=== PATIENT | male | born 1975 | race Caucasian/White ===

== ENCOUNTER 2018-06-05 08:36 | Outpatient (CLI) | payer BC, SELFPAY ==
[2018-06-05 09:05] LABS: Abs Immature Grans 0.01 k/cumm (0.0-0.09); Absolute Basophil Count 0.02 k/cumm (0.0-0.2); Absolute Eosinophil Count 0.29 k/cumm (0.0-0.7); Absolute Lymphocyte Count 1.02 k/cumm (1.2-3.4); Absolute Neutrophil Count 3.18 k/cumm (1.2-6.7); Basophils % 0.4; Eosinophils % 5.8; HCT 44.8 % (40.0-50.0); HGB 15.2 g/dL (13.5-17.5); Immature Grans % 0.2; Lymphocytes % 20.3; Mean Corp. HGB Concentration 33.9 g/dL (32.0-36.0); Mean Corpuscular Hemoglobin 31.6 pg (27.0-33.0); Mean Corpuscular Volume 93.1 fL (80-95); Mean Platelet Volume 11.3 fL (8.0-11.0); Neutrophils % 63.3; Platelet Count 177 x1000/uL (130-400); RBC 4.81 m/cumm (4.50-6.00); RBC Distribution Width 15.1 % (11.8-14.1); White Blood Cell Count 5.02 k/cumm (4.4-10.8)
== END 2018-06-05 08:56 ==
PROVIDERS: PCP Family Medicine; Visit Provider Internal Medicine Gastroenterology
DX: K50.90 Crohn's disease, unspecified, without complications (principal)
CPT/HCPCS: 36415; 85025

== ENCOUNTER 2018-08-09 12:38 | Outpatient (CLI) | payer BC, SELFPAY ==
[2018-08-09 13:17] LABS: Abs Immature Grans 0.02 k/cumm (0.0-0.09); Absolute Basophil Count 0.01 k/cumm (0.0-0.2); Absolute Eosinophil Count 0.23 k/cumm (0.0-0.7); Absolute Lymphocyte Count 1.26 k/cumm (1.2-3.4); Absolute Monocyte Count 0.56 k/cumm (0.11-0.7); Absolute Neutrophil Count 4.34 k/cumm (1.2-6.7); Basophils % 0.2; Eosinophils % 3.6; HCT 45.8 % (40.0-50.0); HGB 15.8 g/dL (13.5-17.5); Immature Grans % 0.3; Lymphocytes % 19.6; Mean Corp. HGB Concentration 34.5 g/dL (32.0-36.0); Mean Corpuscular Hemoglobin 31.7 pg (27.0-33.0); Mean Corpuscular Volume 91.8 fL (80-95); Mean Platelet Volume 11.1 fL (8.0-11.0); Monocytes % 8.7; Neutrophils % 67.6; Platelet Count 175 x1000/uL (130-400); RBC 4.99 m/cumm (4.50-6.00); RBC Distribution Width 14.2 % (11.8-14.1); White Blood Cell Count 6.42 k/cumm (4.4-10.8)
== END 2018-08-09 12:58 ==
PROVIDERS: PCP Family Medicine; Visit Provider Internal Medicine Gastroenterology
DX: K50.90 Crohn's disease, unspecified, without complications (principal)
CPT/HCPCS: 36415; 85025

== ENCOUNTER 2018-09-24 08:23 | Outpatient (CLI) | payer BC, SELFPAY ==
[2018-09-24 08:53] LABS: Abs Immature Grans 0.02 k/cumm (0.0-0.09); HCT 46.1 % (40.0-50.0); Mean Corp. HGB Concentration 34.7 g/dL (32.0-36.0); Mean Corpuscular Hemoglobin 31.4 pg (27.0-33.0); Mean Corpuscular Volume 90.6 fL (80-95); Mean Platelet Volume 11.1 fL (8.0-11.0); Platelet Count 164 x1000/uL (130-400); RBC 5.09 m/cumm (4.50-6.00); RBC Distribution Width 14.1 % (11.8-14.1); White Blood Cell Count 7.27 k/cumm (4.4-10.8)
[2018-09-24 09:18] LABS: Absolute Basophil Count 0.07 k/cumm (0.0-0.2); Absolute Eosinophil Count 0.15 k/cumm (0.0-0.7); Absolute Lymphocyte Count 0.87 k/cumm (1.2-3.4); Absolute Monocyte Count 0.65 k/cumm (0.11-0.7); Absolute Neutrophil Count 5.53 k/cumm (1.2-6.7); Atypical Lymphocytes % 3; Diff Comment Manual Differential
[2018-09-24 09:19] LABS: RBC Morphology Normal
== END 2018-09-24 08:43 ==
PROVIDERS: PCP Family Medicine; Visit Provider Internal Medicine Gastroenterology
DX: K50.90 Crohn's disease, unspecified, without complications (principal)
CPT/HCPCS: 36415; 85025

== ENCOUNTER 2018-09-24 11:54 | Outpatient (REF) | payer BC, SELFPAY ==
[2018-09-25 12:21] LABS: Campylobacter PCR SEE COMMENTS; Salmonella PCR SEE COMMENTS; Shiga Toxin PCR SEE COMMENTS; Shigella/Enteroinvasive Ecoli SEE COMMENTS
== END 2018-09-24 12:14 ==
LOC: LBN 11:54
PROVIDERS: PCP Family Medicine; Visit Provider Family Medicine
DX: A06.0 Acute amebic dysentery (principal); K50.913 Crohn's disease, unspecified, with fistula
CPT/HCPCS: 87505; 83630; 87324

== ENCOUNTER 2018-10-18 07:11 | Outpatient (REF) | payer BC, SELFPAY | END 2018-10-18 07:31 | LOC: LBN 07:11 | PROVIDERS: PCP Family Medicine; Visit Provider Internal Medicine Gastroenterology | DX: A06.0 Acute amebic dysentery (principal); K50.90 Crohn's disease, unspecified, without complications | CPT/HCPCS: 83630; 87324 ==

== ENCOUNTER 2018-10-30 15:25 | Outpatient (CLI) | payer BC, SELFPAY ==
[2018-10-30 16:07] LABS: Abs Immature Grans 0.02 k/cumm (0.0-0.09); Absolute Basophil Count 0.01 k/cumm (0.0-0.2); Absolute Eosinophil Count 0.23 k/cumm (0.0-0.7); Absolute Lymphocyte Count 1.61 k/cumm (1.2-3.4); Absolute Monocyte Count 0.65 k/cumm (0.11-0.7); Absolute Neutrophil Count 4.11 k/cumm (1.2-6.7); Basophils % 0.2; Eosinophils % 3.5; HCT 44.5 % (40.0-50.0); HGB 15.2 g/dL (13.5-17.5); Immature Grans % 0.3; Lymphocytes % 24.3; Mean Corp. HGB Concentration 34.2 g/dL (32.0-36.0); Mean Corpuscular Hemoglobin 31.3 pg (27.0-33.0); Mean Corpuscular Volume 91.8 fL (80-95); Mean Platelet Volume 11.4 fL (8.0-11.0); Monocytes % 9.8; Neutrophils % 61.9; Platelet Count 180 x1000/uL (130-400); RBC 4.85 m/cumm (4.50-6.00); RBC Distribution Width 14.1 % (11.8-14.1); White Blood Cell Count 6.63 k/cumm (4.4-10.8)
== END 2018-10-30 15:45 ==
PROVIDERS: PCP Family Medicine; Visit Provider Internal Medicine Gastroenterology
DX: K50.90 Crohn's disease, unspecified, without complications (principal)
CPT/HCPCS: 36415; 85025

== ENCOUNTER 2018-12-03 09:42 | Outpatient (CLI) | payer BC, SELFPAY ==
[2018-12-03 10:14] LABS: Abs Immature Grans 0.02 k/cumm (0.0-0.09); Absolute Basophil Count 0.01 k/cumm (0.0-0.2); Absolute Lymphocyte Count 1.09 k/cumm (1.2-3.4); Absolute Neutrophil Count 2.97 k/cumm (1.2-6.7); Basophils % 0.2; Eosinophils % 7.9; HCT 44.7 % (40.0-50.0); HGB 15.5 g/dL (13.5-17.5); Immature Grans % 0.4; Lymphocytes % 21.4; Mean Corp. HGB Concentration 34.7 g/dL (32.0-36.0); Mean Corpuscular Hemoglobin 31.6 pg (27.0-33.0); Mean Platelet Volume 11.3 fL (8.0-11.0); Monocytes % 11.8; Neutrophils % 58.3; Platelet Count 169 x1000/uL (130-400); RBC 4.91 m/cumm (4.50-6.00); RBC Distribution Width 14.3 % (11.8-14.1); White Blood Cell Count 5.09 k/cumm (4.4-10.8)
== END 2018-12-03 10:02 ==
PROVIDERS: PCP Family Medicine; Visit Provider Internal Medicine Gastroenterology
DX: K50.90 Crohn's disease, unspecified, without complications (principal)
CPT/HCPCS: 36415; 85025

== ENCOUNTER 2019-02-05 02:14 | Outpatient (RCR) | payer BC, SELFPAY ==
[2019-01-22] MEDS: VEDOLIZUMAB 300 MG in Normal Saline 250 ML 500 MG IVPB (13:37)
[2019-01-22] MEDS: Normal Saline Flush 10 ML SYR IVP (13:40)
[2019-02-05] MEDS: Normal Saline Flush 10 ML SYR IVP (07:50)
[2019-02-05] MEDS: VEDOLIZUMAB 300 MG in Normal Saline 250 ML 500 MG IVPB (07:50)
== END 2019-02-14 23:59 | disposition home or self-care (01) ==
LOC: INF 02:14
PROVIDERS: PCP Family Medicine; Visit Provider Internal Medicine
DX: K50.90 Crohn's disease, unspecified, without complications (principal)
CPT/HCPCS: 96365; J3380

== ENCOUNTER 2019-03-05 01:05 | Outpatient (RCR) | payer BC, SELFPAY ==
[2019-03-05] MEDS: VEDOLIZUMAB 300 MG in Normal Saline 250 ML 500 MG IVPB (08:26)
[2019-03-05] MEDS: Normal Saline Flush 10 ML SYR IVP (08:26)
== END 2019-03-16 23:59 | disposition home or self-care (01) ==
LOC: INF 01:05
PROVIDERS: PCP Family Medicine; Visit Provider Internal Medicine
DX: K50.90 Crohn's disease, unspecified, without complications (principal)
CPT/HCPCS: 96365; J3380

== ENCOUNTER 2019-03-24 13:47 | Outpatient (CLI) | payer BC, SELFPAY ==
--- NOTE | 2019-03-24 08:36 | DI.RAD_ITS ---
SYMPTOM/DIAGNOSIS: RIGHT SHOULDER PAIN RIGHT SHOULDER: 03/24 Three views were obtained. There are prominent hypertrophic degenerative changes of the acromioclavicular joint. Minimal DJD of the glenohumeral joint noted with minimal marginal osteophyte formation of the glenoid and fairly well preserved cartilaginous joint space. No other bony or soft tissue abnormality seen.
== END 2019-03-24 14:07 ==
PROVIDERS: PCP Family Medicine; Visit Provider Physician Assistant
DX: M25.511 Pain in right shoulder (principal); M19.011 Primary osteoarthritis, right shoulder
CPT/HCPCS: 73030

== ENCOUNTER 2019-04-30 04:04 | Outpatient (RCR) | payer BC, SELFPAY ==
[2019-04-30] MEDS: VEDOLIZUMAB 300 MG in Normal Saline 250 ML 500 MG IVPB (08:13)
[2019-04-30] MEDS: Normal Saline Flush 10 ML SYR IVP (08:13)
== END 2019-05-17 23:59 | disposition home or self-care (01) ==
LOC: INF 04:04
PROVIDERS: PCP Family Medicine; Visit Provider Internal Medicine
DX: K50.90 Crohn's disease, unspecified, without complications (principal)
CPT/HCPCS: 96365; J3380

== ENCOUNTER 2019-05-28 01:09 | Outpatient (RCR) | payer BC, SELFPAY ==
[2019-05-28 07:40] LABS: Abs Immature Grans 0.02 k/cumm (0.0-0.09); Absolute Basophil Count 0.02 k/cumm (0.0-0.2); Absolute Eosinophil Count 0.33 k/cumm (0.0-0.7); Absolute Lymphocyte Count 0.93 k/cumm (1.2-3.4); Absolute Monocyte Count 0.42 k/cumm (0.11-0.7); Absolute Neutrophil Count 3.58 k/cumm (1.2-6.7); Basophils % 0.4; Eosinophils % 6.2; HCT 43.6 % (40.0-50.0); HGB 14.6 g/dL (13.5-17.5); Immature Grans % 0.4; Lymphocytes % 17.5; Mean Corp. HGB Concentration 33.5 g/dL (32.0-36.0); Mean Corpuscular Hemoglobin 30.3 pg (27.0-33.0); Mean Corpuscular Volume 90.5 fL (80-95); Mean Platelet Volume 10.9 fL (8.0-11.0); Monocytes % 7.9; Neutrophils % 67.6; Platelet Count 188 x1000/uL (130-400); RBC 4.82 m/cumm (4.50-6.00); RBC Distribution Width 14.6 % (11.8-14.1)
[2019-05-28] MEDS: VEDOLIZUMAB 300 MG in Normal Saline 250 ML 500 MG IVPB (07:58)
[2019-05-28] MEDS: Normal Saline Flush 10 ML SYR IVP (08:13)
== END 2019-06-16 23:59 | disposition home or self-care (01) ==
LOC: INF 01:09
PROVIDERS: PCP Family Medicine; Visit Provider Internal Medicine
DX: K50.90 Crohn's disease, unspecified, without complications (principal)
CPT/HCPCS: 36415; 96365; 85025; J3380

== ENCOUNTER 2019-06-25 01:42 | Outpatient (RCR) | payer BC, SELFPAY ==
[2019-06-25 08:01] LABS: Abs Immature Grans 0.02 k/cumm (0.0-0.09); Absolute Basophil Count 0.02 k/cumm (0.0-0.2); Absolute Eosinophil Count 0.34 k/cumm (0.0-0.7); Absolute Lymphocyte Count 0.78 k/cumm (1.2-3.4); Absolute Monocyte Count 0.36 k/cumm (0.11-0.7); Absolute Neutrophil Count 3.75 k/cumm (1.2-6.7); Basophils % 0.4; Eosinophils % 6.5; HGB 14.6 g/dL (13.5-17.5); Immature Grans % 0.4; Lymphocytes % 14.8; Mean Corp. HGB Concentration 33.2 g/dL (32.0-36.0); Mean Corpuscular Volume 90.3 fL (80-95); Monocytes % 6.8; Neutrophils % 71.1; Platelet Count 175 x1000/uL (130-400); RBC 4.87 m/cumm (4.50-6.00); RBC Distribution Width 14.8 % (11.8-14.1); White Blood Cell Count 5.27 k/cumm (4.4-10.8)
[2019-06-25 08:17] LABS: Iron 76 ug/dL (50-175); Total Iron Binding Capacity 303 ug/dL (250-450); Transferrin Sat 25 % (20-55)
[2019-06-25] MEDS: VEDOLIZUMAB 300 MG in Normal Saline 250 ML 500 MG IVPB (08:20)
[2019-06-25] MEDS: Normal Saline Flush 10 ML SYR IVP (08:21)
[2019-06-25 08:25] LABS: ALT 40 U/L (16-63); AST 33 U/L (15-37); Albumin 3.4 g/dL (3.4-5.0); Alkaline Phosphatase 84 U/L (46-116); Anion Gap 8.1 mmol/L (3-11); BUN 15 mg/dL (7-18); Bilirubin, Total 0.4 mg/dL (0.2-1.0); CO2 26.9 mmol/L (21.0-32.0); CREATININE 0.92 mg/dL (0.70-1.30); Calcium 8.4 mg/dL (8.5-10.1); Chloride 106 mmol/L (98-107); Glucose 141 mg/dL (70-100); Potassium 3.9 mmol/L (3.5-5.1); Sodium 141 mmol/L (136-145); Total Protein 8.3 g/dL (6.4-8.2)
[2019-06-25 09:01] LABS: Ferritin 32 ng/mL (8-388)
[2019-06-26 07:22] LABS: Vitamin D 25 Total 20.2 ng/ml (30-100)
== END 2019-07-17 23:59 | disposition home or self-care (01) ==
LOC: INF 01:42
PROVIDERS: PCP Family Medicine; Visit Provider Internal Medicine
DX: K50.90 Crohn's disease, unspecified, without complications (principal)
CPT/HCPCS: 36415; 80053; 82306; 96365; 82728; 83540; 83550; 85025; J3380

== ENCOUNTER 2019-07-23 02:23 | Outpatient (RCR) | payer BC, SELFPAY ==
[2019-07-23 09:08] LABS: Abs Immature Grans 0.02 k/cumm (0.0-0.09); Absolute Basophil Count 0.02 k/cumm (0.0-0.2); Absolute Eosinophil Count 0.25 k/cumm (0.0-0.7); Absolute Lymphocyte Count 0.88 k/cumm (1.2-3.4); Absolute Monocyte Count 0.61 k/cumm (0.11-0.7); Absolute Neutrophil Count 3.54 k/cumm (1.2-6.7); Basophils % 0.4; Eosinophils % 4.7; HCT 44.4 % (40.0-50.0); Immature Grans % 0.4; Lymphocytes % 16.5; Mean Corp. HGB Concentration 33.8 g/dL (32.0-36.0); Mean Corpuscular Hemoglobin 30.4 pg (27.0-33.0); Mean Corpuscular Volume 89.9 fL (80-95); Mean Platelet Volume 11.4 fL (8.0-11.0); Monocytes % 11.5; Neutrophils % 66.5; Platelet Count 215 x1000/uL (130-400); RBC 4.94 m/cumm (4.50-6.00); White Blood Cell Count 5.32 k/cumm (4.4-10.8)
[2019-07-23] MEDS: VEDOLIZUMAB 300 MG in Normal Saline 250 ML 500 MG IVPB (09:25)
[2019-07-23] MEDS: Normal Saline Flush 10 ML SYR IVP (10:13)
[2019-07-29 15:24] LABS: Vedolizumab Ab <9.8 ng/mL (<9.8); Vedolizumab QN, S 21.1 mcg/mL
== END 2019-08-16 23:59 | disposition home or self-care (01) ==
LOC: INF 02:23
PROVIDERS: Internal Medicine Gastroenterology; PCP Family Medicine; Visit Provider Internal Medicine
DX: K50.90 Crohn's disease, unspecified, without complications (principal); Z51.81 Encounter for therapeutic drug level monitoring
CPT/HCPCS: 36415; 82397; 96365; 85025; J3380

== ENCOUNTER 2019-07-24 07:09 | Outpatient (REF) | payer BC, SELFPAY ==
[2019-07-30 03:27] LABS: Lactoferrin, Qt, Stool 35.2 mcg/mL
== END 2019-07-24 07:29 ==
LOC: LBN 07:09
PROVIDERS: PCP Family Medicine; Visit Provider Internal Medicine Gastroenterology
DX: K50.90 Crohn's disease, unspecified, without complications (principal); Z51.81 Encounter for therapeutic drug level monitoring
CPT/HCPCS: 83631

== ENCOUNTER 2019-08-08 10:37 | Outpatient (CLI) | payer BC, SELFPAY ==
[2019-08-11 06:48] LABS: Vitamin D 25 Total 22.7 ng/ml (30-100)
== END 2019-08-08 10:57 ==
PROVIDERS: PCP Family Medicine; Visit Provider Internal Medicine Gastroenterology
DX: R79.9 Abnormal finding of blood chemistry, unspecified (principal)
CPT/HCPCS: 36415; 82306; 82397

== ENCOUNTER 2019-08-20 02:01 | Outpatient (RCR) | payer BC, SELFPAY ==
[2019-08-20 07:29] LABS: HGB 15.1 g/dL (13.5-17.5); Mean Corp. HGB Concentration 33.6 g/dL (32.0-36.0); Mean Corpuscular Hemoglobin 30.3 pg (27.0-33.0); Mean Corpuscular Volume 90.4 fL (80-95); Mean Platelet Volume 10.9 fL (8.0-11.0); Platelet Count 222 x1000/uL (130-400); RBC 4.98 m/cumm (4.50-6.00); RBC Distribution Width 15.2 % (11.8-14.1); White Blood Cell Count 8.51 k/cumm (4.4-10.8)
[2019-08-20] MEDS: VEDOLIZUMAB 300 MG in Normal Saline 250 ML 500 MG IVPB (08:00)
[2019-08-20] MEDS: Normal Saline Flush 10 ML SYR IVP (08:01)
== END 2019-09-16 23:59 | disposition home or self-care (01) ==
LOC: INF 02:01
PROVIDERS: PCP Family Medicine; Visit Provider Internal Medicine
DX: K50.90 Crohn's disease, unspecified, without complications (principal)
CPT/HCPCS: 36415; 85027; 96365; J3380

== ENCOUNTER 2019-10-15 02:07 | Outpatient (RCR) | payer BC, SELFPAY ==
[2019-09-18 07:33] LABS: Abs Immature Grans 0.03 k/cumm (0.0-0.09); Absolute Basophil Count 0.02 k/cumm (0.0-0.2); Absolute Eosinophil Count 0.34 k/cumm (0.0-0.7); Absolute Lymphocyte Count 1.05 k/cumm (1.2-3.4); Absolute Monocyte Count 0.49 k/cumm (0.11-0.7); Absolute Neutrophil Count 3.75 k/cumm (1.2-6.7); Basophils % 0.4; HCT 43.5 % (40.0-50.0); Immature Grans % 0.5; Lymphocytes % 18.5; Mean Corp. HGB Concentration 34.5 g/dL (32.0-36.0); Mean Corpuscular Hemoglobin 31.1 pg (27.0-33.0); Mean Corpuscular Volume 90.2 fL (80-95); Mean Platelet Volume 10.8 fL (8.0-11.0); Monocytes % 8.6; Platelet Count 185 x1000/uL (130-400); RBC 4.82 m/cumm (4.50-6.00); RBC Distribution Width 15.1 % (11.8-14.1); White Blood Cell Count 5.68 k/cumm (4.4-10.8)
[2019-09-18] MEDS: Normal Saline Flush 10 ML SYR IVP (07:51)
[2019-09-18] MEDS: VEDOLIZUMAB 300 MG in Normal Saline 250 ML 500 MG IVPB (07:51)
[2019-09-18 08:10] LABS: Vitamin D 25 Total 27.1 ng/ml (30-100)
[2019-10-15 08:15] LABS: Abs Immature Grans 0.01 k/cumm (0.0-0.09); Absolute Basophil Count 0.02 k/cumm (0.0-0.2); Absolute Eosinophil Count 0.38 k/cumm (0.0-0.7); Absolute Lymphocyte Count 1.02 k/cumm (1.2-3.4); Absolute Monocyte Count 0.52 k/cumm (0.11-0.7); Absolute Neutrophil Count 4.58 k/cumm (1.2-6.7); Basophils % 0.3; Eosinophils % 5.8; HCT 44.3 % (40.0-50.0); Immature Grans % 0.2 %; Lymphocytes % 15.6; Mean Corp. HGB Concentration 33.9 g/dL (32.0-36.0); Mean Corpuscular Hemoglobin 30.9 pg (27.0-33.0); Mean Corpuscular Volume 91.2 fL (80-95); Neutrophils % 70.1; Platelet Count 192 x1000/uL (130-400); RBC 4.86 m/cumm (4.50-6.00); RBC Distribution Width 14.9 % (11.8-14.1); White Blood Cell Count 6.53 k/cumm (4.4-10.8)
[2019-10-15] MEDS: Normal Saline Flush 10 ML SYR IVP (08:26)
[2019-10-15] MEDS: VEDOLIZUMAB 300 MG in Normal Saline 250 ML 500 MG IVPB (08:26)
== END 2019-10-17 23:59 | disposition home or self-care (01) ==
LOC: INF 02:07
PROVIDERS: Internal Medicine Gastroenterology; PCP Family Medicine; Visit Provider Internal Medicine
DX: K50.90 Crohn's disease, unspecified, without complications (principal); R79.9 Abnormal finding of blood chemistry, unspecified
CPT/HCPCS: 36415; 82306; 96365; 85025; J3380

== ENCOUNTER 2019-11-10 01:37 | Outpatient (RCR) | payer BC, SELFPAY ==
[2019-11-10 07:28] LABS: Abs Immature Grans 0.02 k/cumm (0.0-0.09); Absolute Basophil Count 0.01 k/cumm (0.0-0.2); Absolute Eosinophil Count 0.26 k/cumm (0.0-0.7); Absolute Monocyte Count 0.49 k/cumm (0.11-0.7); Absolute Neutrophil Count 3.87 k/cumm (1.2-6.7); Basophils % 0.2; Eosinophils % 4.5; HCT 46.2 % (40.0-50.0); HGB 15.2 g/dL (13.5-17.5); Immature Grans % 0.3 %; Lymphocytes % 19.1; Mean Corp. HGB Concentration 32.9 g/dL (32.0-36.0); Mean Corpuscular Volume 91.3 fL (80-95); Mean Platelet Volume 10.9 fL (8.0-11.0); Monocytes % 8.5; Neutrophils % 67.4; Platelet Count 204 x1000/uL (130-400); RBC 5.06 m/cumm (4.50-6.00); RBC Distribution Width 14.6 % (11.8-14.1); White Blood Cell Count 5.75 k/cumm (4.4-10.8)
[2019-11-10] MEDS: VEDOLIZUMAB 300 MG in Normal Saline 250 ML 500 MG IVPB (08:21)
[2019-11-10] MEDS: Normal Saline Flush 10 ML SYR IVP (08:25)
== END 2019-11-15 23:59 | disposition home or self-care (01) ==
LOC: INF 01:37
PROVIDERS: Internal Medicine Gastroenterology; PCP Family Medicine; Visit Provider Internal Medicine
DX: K50.90 Crohn's disease, unspecified, without complications (principal)
CPT/HCPCS: 36415; 96365; 85025; J3380

== ENCOUNTER 2019-11-11 07:51 | Day surgery (SDC) | payer BC, SELFPAY ==
--- NOTE | 2019-11-10 21:38 | W.PREOPHP ---
Documented by User: Korin Garcia 11/10/19 21:43 Assessment and Plan Assessment and plan (1) Arthritis of right acromioclavicular joint: Status: Chronic Assessment and plan: Plan: Educated patient on surgery covering surgical technique, recovery process, benefits and risks including but not limited to risk of infection, blood clot, damage to soft tissue/blood vessels/nerves in detail. After discussion patient gives verbal understanding of risks and elects to proceed with scheduling surgery. Patient had opportunity to have questions answered to their satisfaction. They will contact office if issues arise. Patient will continue to be scheduled for right distal clavicle excision with Dr. Brewster. History of Present Illness Narrative: Mr. Zhao is a 44-year-old right-hand dominant male who presents to hospital for scheduled right distal clavicle excision. Patient is been seen in orthopedic clinic numerous times for arthritis of his right AC joint that has been symptomatic since prior to summer 2018. Patient previously received a right AC joint injection on 03/24/19 which provided significant relief for ~3 months. 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 Additionally, he has been experiencing pain with overhead motions, reaching across his body and lifting heavy objects. He also occasionally takes a dose of ibuprofen and Tylenol for other comorbidities (Crohn's) which have caused slight alleviation of his right shoulder complaints. Patient denies use of ice, heat or massage at home. Patient denies symptoms of numbness or tingling or muscle weakness. Due to patient's continued discomfort he was offered surgical intervention and elected to proceed. Review of Systems Cardiovascular Cardiovascular: Denies chest pain and Denies dyspnea Respiratory Respiratory: Denies dyspnea [facility] Medical History Carpal tunnel syndrome (Acute) good response to PT Chiari malformation (Acute) type 1 ('s notes) Crohn's disease (Acute) - last colonoscopy /on Humira + 6-MP SHAN on CPAP (Acute 04/24/16) severe/ : Peripheral neuropathy (Acute) worked up by 2013: low copper,low ceruloplasmin,low vit.D - some improvement Restless legs syndrome (Acute) Good symptom control with well balanced diet and supplements. Surgical History Colectomy (12/03/12) Bowel surgeries x 4 TOTAL OF 49CM OF SMALL BOWEL INCLUDING 11CM OF TERMINAL ILEUM WERE RESECTED. ILEOCECAL RESECTION SMALL ILEAL RESECTION, STRICUROPLASTY SMALL ILEAL RESECTION, STRICTUROPLASTY Colonoscopy - MAC (~1989) TERMINAL ILEITIS History of esophagogastroduodenoscopy (EGD) (Chronic) Family History Mother , age 65 COPD (chronic obstructive pulmonary disease) Father , AGE 60 Heart disease Brother No problems noted. Brother No problems noted. Son No problems noted. Son No problems noted. Son No problems noted. 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 Pets and animals: Yes Pets and animals: cat(s) and dog(s) Sexually active: Yes Do you think of yourself as: straight/heterosexual Current gender identity: male What is your relationship status?: How often do you talk on the phone with friends or family?: never How often do you get together with friends or relatives?: once per week How often do you attend samaritan or anglican services?: decline to answer Do you belong to any clubs or organized social groups?: yes Panel score (0-1 are the most socially isolated patients): 2 What type of physical activity do you participate in: none Frequency: does not exercise Joceline/Mandaen: Rastafari Special joceline needs: No Seatbelt use: always Drive intox or ride w/intox intermodal owner operator truck driver: No Do you feel safe at home: Yes Do you feel safe in your relationship?: Yes Meds Home Medications and Allergies Home Medications Medication Instructions Recorded Confirmed Type mercaptopurine 2 tab PO DAILY #60 tab-cap 01/05/16 11/07/19 History multivitamin [Multi-Day Vitamins] 1 ea PO DAILY 08/24/16 11/07/19 History cholecalciferol (vitamin D3) 50 4,000 unit PO DAILY tab 06/05/18 11/07/19 History mcg (2,000 unit) tablet ferrous gluconate 240 mg (27 mg 240 mg PO DAILY tab 06/05/18 11/07/19 History iron) tablet magnesium 250 mg tablet 500 mg PO DAILY tab 06/05/18 11/07/19 History mecobalamin (vitamin B12) 1,000 1,000 mcg SL DAILY 06/05/18 11/07/19 History mcg disintegrating tablet,sublingual vedolizumab 300 mg intravenous 300 mg IV Q4W 03/24/19 11/07/19 History solution celecoxib 100 mg capsule 100 mg PO BID PRN #30 cap 06/11/19 11/07/19 Rx Allergies Allergy/AdvReac Type Severity Reaction Status Date / Time aspirin Allergy Severe Anaphylaxsi Unverified 08/18/19 13:40 s Sulfa (Sulfonamide Allergy Severe Anaphylaxsi Unverified 08/18/19 13:40 Antibiotics) s cephalexin AdvReac Severe DIARRHEA Unverified 08/18/19 13:40 budesonide AdvReac Unknown Diarrhea Unverified 08/18/19 13:40 Exam Resp Effort & Inspection: normal respiratory effort and able to speak in complete sentences Auscultation: clear to auscultation bilaterally, no rales, no rhonchi and no wheezes Cardio Heart Sounds: S1 normal, S2 normal and no murmurs Documented by User: Aly Brewster MD 11/11/19 08:11 Date of service: 11/11/19 Time of Service: 08:08 History of Present Illness History of Present Illness Chief Complaint: Right AC Arthritis Narrative: Teodoro is a 44-year-old who has had persistent pain about his right AC joint. He has been seen in the office on multiple occasions for this pain. He has tried conservative treatment options including activity modifications, exercise, and injections. He has also use anti-inflammatories. The injections have provided relief of pain but the symptoms return. He has no pain deep within the shoulder. No neck pain or numbness or tingling. Review of Systems All systems reviewed & are unremarkable except as noted in HPI and below PFSH Medical History Carpal tunnel syndrome (Acute) good response to PT Chiari malformation (Acute) type 1 ('s notes) Crohn's disease (Acute) - last colonoscopy /on Humira + 6-MP SHAN on CPAP (Acute 04/24/16) severe/ -2016: Peripheral neuropathy (Acute) worked up by 2013: low copper,low ceruloplasmin,low vit.D - some improvement Restless legs syndrome (Acute) Good symptom control with well balanced diet and supplements. Surgical History Colectomy (12/03/12) Bowel surgeries x 4 TOTAL OF 49CM OF SMALL BOWEL INCLUDING 11CM OF TERMINAL ILEUM WERE RESECTED. ILEOCECAL RESECTION SMALL ILEAL RESECTION, STRICUROPLASTY SMALL ILEAL RESECTION, STRICTUROPLASTY Colonoscopy - MAC (~1989) TERMINAL ILEITIS History of esophagogastroduodenoscopy (EGD) (Chronic) Family History Mother , age 65 COPD (chronic obstructive pulmonary disease) Father , AGE 60 Heart disease Brother No problems noted. Brother No problems noted. Son No problems noted. Son No problems noted. Son No problems noted. 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 Pets and animals: Yes Pets and animals: cat(s) and dog(s) Sexually active: Yes Do you think of yourself as: straight/heterosexual Current gender identity: male What is your relationship status?: How often do you talk on the phone with friends or family?: never How often do you get together with friends or relatives?: once per week How often do you attend samaritan or anglican services?: decline to answer Do you belong to any clubs or organized social groups?: yes Panel score (0-1 are the most socially isolated patients): 2 What type of physical activity do you participate in: none Frequency: does not exercise Joceline/Mandaen: Rastafari Special joceline needs: No Seatbelt use: always Drive intox or ride w/intox intermodal owner operator truck driver: No Do you feel safe at home: Yes Do you feel safe in your relationship?: Yes Meds Home Medications and Allergies Home Medications Medication Instructions Recorded Confirmed Type mercaptopurine 2 tab PO DAILY #60 tab-cap 01/05/16 11/07/19 History multivitamin [Multi-Day Vitamins] 1 ea PO DAILY 08/24/16 11/07/19 History cholecalciferol (vitamin D3) 50 4,000 unit PO DAILY tab 06/05/18 11/07/19 History mcg (2,000 unit) tablet ferrous gluconate 240 mg (27 mg 240 mg PO DAILY tab 06/05/18 11/07/19 History iron) tablet magnesium 250 mg tablet 500 mg PO DAILY tab 06/05/18 11/07/19 History mecobalamin (vitamin B12) 1,000 1,000 mcg SL DAILY 06/05/18 11/07/19 History mcg disintegrating tablet,sublingual vedolizumab 300 mg intravenous 300 mg IV Q4W 03/24/19 11/07/19 History solution celecoxib 100 mg capsule 100 mg PO BID PRN #30 cap 06/11/19 11/07/19 Rx Allergies Allergy/AdvReac Type Severity Reaction Status Date / Time aspirin Allergy Severe Anaphylaxsi Unverified 08/18/19 13:40 s Sulfa (Sulfonamide Allergy Severe Anaphylaxsi Unverified 08/18/19 13:40 Antibiotics) s cephalexin AdvReac Severe DIARRHEA Unverified 08/18/19 13:40 budesonide AdvReac Unknown Diarrhea Unverified 08/18/19 13:40 Exam Const General: cooperative, healthy appearing, comfortable and no acute distress Nutritional Appearance: average body habitus Orientation: alert, awake and oriented x3 Resp Auscultation: clear to auscultation bilaterally Cardio Rate: regular rate Rhythm: regular rhythm Extrem Other: Evaluation of the right shoulder demonstrates pain over the AC joint. Positive scarf test. No overlying skin changes or signs of infection.
[2019-11-11] VITALS (11 sets, daily range): BP systolic 101–121; BP diastolic 62–71; PULSE 91–101; RESP 10–18; TEMP 36.5–37.1; O2SAT 90–96
--- NOTE | 2019-11-11 08:14 | PDOC.DSDIS_ITS ---
Discharge Plan Disposition Patient Disposition: HOME Condition: Good Discharge Details Reason For Visit: R AC Arthritis Attending Provider: Aly Brewster Primary Care Provider: Ashley Avalos Home Meds and New Rx's Prescriptions: New acetaminophen 500 mg tablet 500 mg PO Q6H PRN PRN (Reason: pain) Qty: 60 RF: 3 ibuprofen 600 mg tablet 600 mg PO TID PRNQty: 60 RF: 3 hydrocodone-acetaminophen 7.5-325 mg tablet 1 tab PO Q6H MDD 30mg PRN (Reason: post-surgical pain) Qty: 12 RF: 0 Continued mecobalamin (vitamin B12) 1,000 mcg tablet,disintegrating 1,000 mcg SL DAILY RF: 0 cholecalciferol (vitamin D3) 2,000 unit tablet 6,000 unit PO DAILY RF: 0 ferrous gluconate [Fergon] 240 mg (27 mg iron) tablet 240 mg PO DAILY RF: 0 magnesium 250 mg tablet 500 mg PO DAILY RF: 0 Entyvio 300 mg recon soln 300 mg IV Q4W RF: 0 mercaptopurine 50 MG tablet 100 tab PO DAILY Qty: 60 RF: 0 multivitamin [Multi-Day] 1 EACH tablet 1 ea PO DAILY RF: 0 Discontinued celecoxib [Celebrex] 100 mg capsule 100 mg PO BID PRN (Reason: pain) Qty: 30 RF: 0 No Action ibuprofen 200 mg Tablet 400 mg PO Q6H PRNRF: 0 acetaminophen [Tylenol Arthritis Pain] 650 mg Tablet Extended Release 1,300 mg PO RF: 0 Discharge Instructions Additional Instructions: Activity: You may perform light activity to the shoulder. Range of motion and lifting no more than 3-5 lbs for the first two weeks. Dressing: The initial dressing may be removed after 72 hours. You should keep a light gauze dressing in place until your follow-up. The steri-strips may fall off on their own. The wound may get wet after 72 hours. Medications: - You should take Acetaminophen (500mg every 6 hours as needed) and Ibuprofen(600mg every 8 hours as needed) for baseline pain control. - You have Hydrocodone for breakthrough pain. Follow-up: 10-14 days Referrals: Aly Brewster MD [ [facility] STAFF PHYSICIAN] - Equipment/Supplies: Sling Activity:: Activity as Tolerated Remove Dressings/Wound Care:: 72 hours Shower/Bathe:: 72 hours Diet:: As Tolerated Discharge Orders Discharge Orders: Discharge Order (Routine); Ordered 11/11/19 Ordered By: Aly Brewster DS: Diagnosis Discharge Diagnosis (1) Arthritis of right acromioclavicular joint: Status: Chronic
[2019-11-11] MEDS: Lactated Ringers 1,000 ML 80 ML IV ×2 (09:00→11:59)
[2019-11-11] MEDS: CLINDAMYCIN 600 MG/50 ML BAG 100 MG IVPB (10:25)
[2019-11-11] MEDS: Bupivacaine 0.25% Pres-Free 30 ML VIAL (11:04)
--- NOTE | 2019-11-11 22:00 | ROE_ITS ---
Date of service: 11/11/19 Time of Service: 12:00 Operative Note Operative Note DATE OF PROCEDURE: 11/11/19 PRE-OP DIAGNOSIS: Right AC arthritis POST-OP DIAGNOSIS: same PROCEDURE: - Mini-Open Distal Clavicle Excision SURGEON: Aly Brewster HEEL SCOURER: Luis Armando Watkins ANESTHESIA: GETA and regional ESTIMATED BLOOD LOSS: 10 PATHOLOGY: none sent COMPLICATIONS: None Patient was transported to: PACU Patient's condition: stable Indications: I have seen Teodoro in clinic for a painful shoulder. Pathology was confirmed based on imaging findings and clinical exam. Nonoperative measures were exhausted but disability and pain persisted. I reviewed the technical details of distal clavicle excision.. I reviewed the risks of the procedures to include, but not limited to, bleeding, infection, pain, stiffness, damage to nerves or vessels, recurrence, blood clot. Despite these risks, the patient elected to proceed. Findings: There were signs of arthrosis of the distal clavicle; a 1cm wedge was resected Procedure Description: Teodoro was greeted in the preoperative holding area where the correct side was identified and marked. The consent was reviewed with the patient and signed. The history and physical was updated. All questions were answered. He was taken back to the PACU for administration of a superficial cervical plexus nerve block. He was then taken to the operating room. The patient was placed into the supine position on the operating room table. A general anesthetic was administered. He was then positioned in the lazy beach chair position. All bony prominences were well padded. The head was placed in a foam head of integrated media in a neutral position. Prophylactic antibiotics in the form of clindamycin were administered. The right arm/shoulder was then prepped with Chloraprep and draped in a standard fashion with stockinette and shoulder drape. A timeout to confirm correct identity, side and site, procedure, allergies, anesthesia, and medical concerns was performed. The arm was placed into a pneumatic foley, [id number]. The distal clavicle was approached through a 2 and half centimeter incision within Arjun's lines. This was made overlying the AC joint. The skin was incised sharply. The deeper tissues dissected with electrocautery. The clavipectoral fascia was identified and incised longitudinally off of the distal clavicle and onto the acromion. This was reflected subperiosteally to expose the distal clavicle and the AC joint. With adequate exposure a 1 cm bony resection was made using an oscillating saw. This is angled posteriorly to avoid any posterior impingement. Once it was fully resected, it was inspected to make sure it is of adequate width. A rasp was used to smooth the bony edges inferiorly and posteriorly primarily. A small amount of bone wax was placed on the end of the distal clavicle. The wound was thoroughly irrigated. There is no active bleeding. The clavipectoral fascia was then closed with a 0 Vicryl in a watertight fashion. The subcutaneous tissues were then reapproximated with a 2-0 Vicryl. The skin was closed with 3-0 Monocryl. The wounds were dressed with Steri-Strips, 4 x 4's, Medipore tape. A sling was applied. The patient tolerated the procedure well and was returned to the PACU in a stable condition suffering no known complication.
== END 2019-11-11 13:36 | disposition home or self-care (01) ==
PROVIDERS: PCP Family Medicine; Visit Provider Student in an Organized Health Care Education/Training Program
PROC: (CPT 23120; principal; 2019-11-11 10:15)
DX: M19.011 Primary osteoarthritis, right shoulder (principal); M25.511 Pain in right shoulder; G47.33 Obstructive sleep apnea (adult) (pediatric)
CPT/HCPCS: 23120; 76942; NC; J1100; J2001; J2250; J2405; J2704; L3650

== ENCOUNTER 2019-12-08 02:21 | Outpatient (RCR) | payer BC, SELFPAY ==
[2019-12-08 07:49] LABS: Abs Immature Grans 0.02 k/cumm (0.0-0.09); Absolute Basophil Count 0.02 k/cumm (0.0-0.2); Absolute Eosinophil Count 0.32 k/cumm (0.0-0.7); Absolute Lymphocyte Count 1.05 k/cumm (1.2-3.4); Absolute Monocyte Count 0.65 k/cumm (0.11-0.7); Absolute Neutrophil Count 4.11 k/cumm (1.2-6.7); Basophils % 0.3; Eosinophils % 5.2; HCT 44.4 % (40.0-50.0); HGB 14.9 g/dL (13.5-17.5); Immature Grans % 0.3 %; Mean Corp. HGB Concentration 33.6 g/dL (32.0-36.0); Mean Corpuscular Hemoglobin 30.8 pg (27.0-33.0); Mean Corpuscular Volume 91.7 fL (80-95); Monocytes % 10.5; Neutrophils % 66.7; Platelet Count 216 x1000/uL (130-400); RBC 4.84 m/cumm (4.50-6.00); RBC Distribution Width 14.4 % (11.8-14.1); White Blood Cell Count 6.17 k/cumm (4.4-10.8)
[2019-12-08] MEDS: Normal Saline Flush 10 ML SYR IVP (08:08)
[2019-12-08] MEDS: VEDOLIZUMAB 300 MG in Normal Saline 250 ML 500 MG IVPB (08:08)
[2019-12-08 13:34] LABS: Vitamin D 25 Total 28.4 ng/ml (30-100)
[2019-12-16 14:05] LABS: Vedolizumab Ab <9.8 ng/mL (<9.8); Vedolizumab QN, S 20.9 mcg/mL
== END 2019-12-16 23:59 | disposition home or self-care (01) ==
LOC: INF 02:21
PROVIDERS: PCP Family Medicine; Visit Provider Internal Medicine
DX: K50.90 Crohn's disease, unspecified, without complications (principal); Z51.81 Encounter for therapeutic drug level monitoring
CPT/HCPCS: 36415; 82306; 82397; 96365; 85025; J3380

== ENCOUNTER 2020-01-05 02:30 | Outpatient (RCR) | payer BC, SELFPAY ==
[2020-01-05 08:41] LABS: Abs Immature Grans 0.02 k/cumm (0.0-0.09); Absolute Basophil Count 0.01 k/cumm (0.0-0.2); Absolute Eosinophil Count 0.28 k/cumm (0.0-0.7); Absolute Lymphocyte Count 1.02 k/cumm (1.2-3.4); Absolute Monocyte Count 0.39 k/cumm (0.11-0.7); Absolute Neutrophil Count 3.22 k/cumm (1.2-6.7); Basophils % 0.2; Eosinophils % 5.7; HCT 43.1 % (40.0-50.0); HGB 14.8 g/dL (13.5-17.5); Immature Grans % 0.4 %; Lymphocytes % 20.6; Mean Corp. HGB Concentration 34.3 g/dL (32.0-36.0); Mean Corpuscular Hemoglobin 31.6 pg (27.0-33.0); Mean Corpuscular Volume 91.9 fL (80-95); Mean Platelet Volume 10.8 fL (8.0-11.0); Monocytes % 7.9; Neutrophils % 65.2; Platelet Count 196 x1000/uL (130-400); RBC 4.69 m/cumm (4.50-6.00); RBC Distribution Width 14.9 % (11.8-14.1); White Blood Cell Count 4.94 k/cumm (4.4-10.8)
[2020-01-05] MEDS: VEDOLIZUMAB 300 MG in Normal Saline 250 ML 500 MG IVPB (09:18)
[2020-01-05] MEDS: Normal Saline Flush 10 ML SYR IVP (09:19)
== END 2020-01-15 23:59 | disposition home or self-care (01) ==
LOC: INF 02:30
PROVIDERS: Internal Medicine Gastroenterology; PCP Family Medicine; Visit Provider Internal Medicine
DX: K50.90 Crohn's disease, unspecified, without complications (principal); Z79.899 Other long term (current) drug therapy; Z51.81 Encounter for therapeutic drug level monitoring
CPT/HCPCS: 36415; 96365; 85025; J3380

== ENCOUNTER 2020-01-23 15:29 | Emergency (ER) | payer BC, SELFPAY ==
--- NOTE | 2020-01-23 15:45 | DI.US_ITS ---
EXAM: US LOWER EXTREMITY VENOUS RT CLINICAL HISTORY: R medial thigh mass, erythema TECHNIQUE: Ultrasound performed using standard protocol. COMPARISON: US US OR ANESTHESIA from 11/11/2019 FINDINGS: There is reportedly a clinically suspected right medial thigh mass and erythema. There is no evidenc e of deep venous thrombosis. No Bruce's cyst identified. No definite thigh mass identified. Note is made of prominence of right inguinal lymph nodes with the largest node measuring about 44 x 1 9 x 9 millimeters. IMPRESSION: No evidence of DVT. No thigh mass identified. If there is a clinical suspicion of mass additional evaluation with MRI ma y be considered. DATA REPOSITORY:
[2020-01-23 15:46] VITALS: BP 171/92; PULSE 87; RESP 16; TEMP 36.4; O2SAT 95
--- NOTE | 2020-01-23 15:55 | ED.GENADUL_ITS ---
Discharge Plan Disposition Patient Disposition: HOME Condition: Improving Discharge Details Chief Complaint: Cellulitis Clinical Impression: Cellulitis of leg, right Primary Care Provider: Ashley Avalos ED Provider: Yonatan Contreras Home Meds and New Rx's Prescriptions: New amoxicillin-pot clavulanate 875-125 mg tablet 1 tab PO BID 7 Days Qty: 14 RF: 0 Continued mecobalamin (vitamin B12) 1,000 mcg tablet,disintegrating 1,000 mcg SL DAILY RF: 0 cholecalciferol (vitamin D3) 2,000 unit tablet 6,000 unit PO DAILY RF: 0 ferrous gluconate [Fergon] 240 mg (27 mg iron) tablet 240 mg PO DAILY RF: 0 magnesium 250 mg tablet 500 mg PO DAILY RF: 0 Entyvio 300 mg recon soln 300 mg IV Q4W RF: 0 mercaptopurine 50 MG tablet 100 tab PO DAILY Qty: 60 RF: 0 multivitamin [Multi-Day] 1 EACH tablet 1 ea PO DAILY RF: 0 alprazolam 0.5 mg tablet 0.5 mg PO BID PRN (Reason: anxiety) Qty: 14 RF: 0 acetaminophen 500 mg tablet 500 mg PO Q6H PRN PRN (Reason: pain) Qty: 60 RF: 3 ibuprofen 600 mg tablet 600 mg PO TID PRNQty: 60 RF: 3 hydrocodone-acetaminophen 7.5-325 mg tablet 1 tab PO Q6H MDD 30mg PRN (Reason: post-surgical pain) Qty: 12 RF: 0 ibuprofen 200 mg Tablet 400 mg PO Q6H PRNRF: 0 acetaminophen [Tylenol Arthritis Pain] 650 mg Tablet Extended Release 1,300 mg PO RF: 0 Discontinued dicloxacillin 250 mg capsule 250 mg PO QID Qty: 40 RF: 0 Discharge Instructions Instructions: Cellulitis (ED) Additional Instructions: Please return in 24 hours for recheck if not improving, as we discussed. Return sooner for worsening or any other acute concern. Please stop the previously prescribed dicloxacillin. Please take the next dose of Augmentin approximately 1230 or 1 AM. Then begin to take twice daily beginning tomorrow. I recommend you take an [id number] probiotic or live culture yogurt once daily while on antibiotic. Continue all of your other regularly prescribed medications. Medical Decision Making 44-year-old male presents from home. He states that he developed the right upper medial thigh discomfort and slight bruising on Sunday, had a subjective fever at home Sunday night, was seen in the office on Sunday and started on dicloxacillin 4 times daily, today is his third day of treatment. Today he states he has not had persistent fever but he is noticed increased erythema outside the marked boundaries and some mild increasing pain. He states he has dry cough but this is normal for him during springtime. He is well-appearing, admittedly anxious with a slight increase blood pressure 171/92 but afebrile with otherwise normal vital signs. This noted that he is immunosuppressed with Entyvio for history of Crohn's disease. On exam he has a palpable cord underlying the area of erythema on his right medial thigh. Differential diagnosis includes DVT, abscess, cellulitis with induration. Patient IV access established, lab work including blood culture and lactate obtained. An ultrasound: No DVT, +lymphadenopathy. Laboratories reveal white count 7.8, reassuring chemistries, CRP is elevated at 4.7. Consistent with cellulitis that is not responding to current course of outpatient antibiotics. He is not septic, he is medically stable and would prefer outpatient management. We will begin an IV dose of Unasyn, switch the patient to Augmentin, and asked him to return for recheck if not improving in 24 hours time. Lab Data Lab results reviewed: Yes I reviewed the patient's lab results. Labs: Laboratory Results - last 24 hr 01/23/20 01/23/20 01/23/20 16:05 16:05 16:05 WBC RBC Hgb Hct MCV MCH MCHC RDW Plt Count MPV Immature Gran % Neutrophils % Lymphocytes % Monocytes % Eosinophils % Basophils % Absolute Neutrophils Absolute Lymphocytes Absolute Monocytes Absolute Eosinophils Absolute Basophils Sodium 140 Potassium 3.7 Chloride 104 Carbon Dioxide 27.7 Anion Gap 8.3 BUN 16 Creatinine 0.97 Estimated GFR/1.73 m2 >= 60.00 Glucose 94 Lactate 0.6 Calcium 8.7 Total Bilirubin 0.3 AST 24 ALT 33 Alkaline Phosphatase 68 C-Reactive Protein 4.78 H Total Protein 8.2 Albumin 3.3 L 01/23/20 16:05 WBC 7.83 RBC 4.45 L Hgb 14.0 Hct 41.3 MCV 92.8 MCH 31.5 MCHC 33.9 RDW 14.9 H Plt Count 215 MPV 10.8 Immature Gran % 0.5 Neutrophils % 68.9 Lymphocytes % 15.6 Monocytes % 9.7 Eosinophils % 5.2 Basophils % 0.1 Absolute Neutrophils 5.39 Absolute Lymphocytes 1.22 Absolute Monocytes 0.76 H Absolute Eosinophils 0.41 Absolute Basophils 0.01 Sodium Potassium Chloride Carbon Dioxide Anion Gap BUN Creatinine Estimated GFR/1.73 m2 Glucose Lactate Calcium Total Bilirubin AST ALT Alkaline Phosphatase C-Reactive Protein Total Protein Albumin HPI General Mode of arrival: ambulatory . Date/Time Provider Initiated Documentation: 01/23/20 15:31 . Limitations to Documentation: no limitations . Information obtained by: patient . History of Present Illness 44 year old M presents to the emergency department with the chief complaint of Right medial thigh swelling, erythema, on antibiotics day 3, described as moderate, Quality is described as dull and constant, and is localized to the right and lower extremity. Patient reports no radiation. Patient started experiencing this day(s) and it has been constant. Rest improves symptom(s), Movement worsens symptoms . Patient notes fever/chills; denies cough and shortness of breath. Patient did receive the following treatments prior to arrival, other (Dicloxacillin day 3) Related Data Home Medications Medication Instructions Recorded Confirmed mercaptopurine 100 tab PO DAILY #60 tab-cap 01/05/16 01/23/20 multivitamin [Multi-Day] 1 ea PO DAILY 08/24/16 01/23/20 cholecalciferol (vitamin D3) 50 6,000 unit PO DAILY tab 06/05/18 01/23/20 mcg (2,000 unit) tablet ferrous gluconate 240 mg (27 mg 240 mg PO DAILY tab 06/05/18 01/23/20 iron) tablet magnesium 250 mg tablet 500 mg PO DAILY tab 06/05/18 01/23/20 mecobalamin (vitamin B12) 1,000 1,000 mcg SL DAILY 06/05/18 01/23/20 mcg disintegrating tablet,sublingual vedolizumab 300 mg intravenous 300 mg IV Q4W 03/24/19 01/23/20 solution acetaminophen 500 mg PO Q6H PRN PRN #60 tab 11/11/19 11/24/19 acetaminophen [Tylenol Arthritis 1,300 mg PO 11/11/19 11/24/19 Pain] hydrocodone-acetaminophen 1 tab PO Q6H PRN #12 tab MDD 30mg 11/11/19 11/24/19 ibuprofen 400 mg PO Q6H PRN 11/11/19 11/24/19 ibuprofen 600 mg PO TID PRN #60 tab 11/11/19 11/24/19 alprazolam 0.5 mg tablet 0.5 mg PO BID PRN #14 tab 01/15/20 01/23/20 amoxicillin-pot clavulanate 1 tab PO BID 7 Days #14 tab 01/23/20 Previous Rx's Medication Instructions Recorded acetaminophen 500 mg PO Q6H PRN PRN #60 tab 11/11/19 hydrocodone-acetaminophen 1 tab PO Q6H PRN #12 tab MDD 30mg 11/11/19 ibuprofen 600 mg PO TID PRN #60 tab 11/11/19 alprazolam 0.5 mg tablet 0.5 mg PO BID PRN #14 tab 01/15/20 amoxicillin-pot clavulanate 1 tab PO BID 7 Days #14 tab 01/23/20 Allergies Allergy/AdvReac Type Severity Reaction Status Date / Time aspirin Allergy Severe Anaphylaxsi Unverified 01/23/20 16:11 s infliximab [From Remicade] Allergy Severe Anaphylaxsi Verified 01/23/20 16:11 s Sulfa (Sulfonamide Allergy Severe Anaphylaxsi Unverified 01/23/20 16:11 Antibiotics) s cephalexin AdvReac Severe DIARRHEA Unverified 01/23/20 16:11 budesonide AdvReac Unknown Diarrhea Unverified 01/23/20 16:11 General Stated Complaint: Cellulitis DENA: 3 Review of Systems Narrative: Reports fever Sunday night, denies any known trauma but 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 No chest pain or shortness of breath. Increased discomfort increased redness outside of marked boundaries today. He has what he believes is a dry cough secondary to seasonal allergies, normal for him. 8 systems reviewed and otherwise negative [facility] Medical History Carpal tunnel syndrome (Acute) good response to PT Chiari malformation (Acute) type 1 ('s notes) Crohn's disease (Acute) - last colonoscopy /on Humira + 6-MP SHAN on CPAP (Acute 04/24/16) severe/ -2016: Peripheral neuropathy (Acute) worked up by 2013: low copper,low ceruloplasmin,low vit.D - some improvement Restless legs syndrome (Acute) Good symptom control with well balanced diet and supplements. Surgical History Colectomy (12/03/12) Bowel surgeries x 4 TOTAL OF 49CM OF SMALL BOWEL INCLUDING 11CM OF TERMINAL ILEUM WERE RESECTED. ILEOCECAL RESECTION SMALL ILEAL RESECTION, STRICUROPLASTY SMALL ILEAL RESECTION, STRICTUROPLASTY Colonoscopy - MAC (~1989) TERMINAL ILEITIS History of esophagogastroduodenoscopy (EGD) (Chronic) Hx of appendectomy (Chronic) during first bowel surgery Family History Mother , age 65 COPD (chronic obstructive pulmonary disease) Father , AGE 60 Heart disease Brother No problems noted. Brother No problems noted. Son No problems noted. Son No problems noted. Son No problems noted. 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 Pets and animals: Yes Pets and animals: cat(s) and dog(s) Sexually active: Yes Do you think of yourself as: straight/heterosexual Current gender identity: male What is your relationship status?: How often do you talk on the phone with friends or family?: never How often do you get together with friends or relatives?: once per week How often do you attend buddhist or scientologist services?: decline to answer Do you belong to any clubs or organized social groups?: yes Panel score (0-1 are the most socially isolated patients): 2 What type of physical activity do you participate in: none Frequency: does not exercise Joceline/Buddhist: Jehovah'S Witness Special joceline needs: No Seatbelt use: always Drive intox or ride w/intox stock car driver: No Do you feel safe at home: Yes Do you feel safe in your relationship?: Yes Exam Narrative Exam Narrative: GEN: awake, alert, oriented 3. Pleasant, well groomed, interactive. HEAD: Normocephalic, atraumatic ENT: Mucous membranes moist, External ear exam unremarkable EYES: PERRL, EOMI NECK: Full ROM, no PREETI, no menigismus CHEST/RESP: Nontender, clear to auscultation bilateral, no wheeze/rhonchi/rales CARDIOVASCULAR: RRR, no murmur, rub yadira. 2+ Rad pulse bilateral ABDOMEN: Soft, nontender, no mass. +Bowel sounds EXT: Full ROM, no edema, the right medial thigh has a palpable cord with overlying erythema and discrete ecchymosis. Neuro: Grossly normal neurologic exam, conversant, interactive. Psych: Speech fluent, thoughts congruent, affect normal Course Vital Signs Vital signs: Vital Signs Temperature 36.4 C L 01/23/20 15:46 Pulse 87 01/23/20 15:46 Respiratory Rate 16 01/23/20 15:46 Blood Pressure 171/92 H 01/23/20 15:46 Pulse Oximetry 95 01/23/20 15:46 Temperature 36.4 C L 01/23/20 15:46 Temperature Source Skin 01/23/20 15:46 Pulse 87 01/23/20 15:46 Respiratory Rate 16 01/23/20 15:46 Blood Pressure 171/92 H 01/23/20 15:46 Blood Pressure Position Sitting 01/23/20 15:46 Pulse Oximetry 95 01/23/20 15:46 Oxygen Delivery Method Room Air 01/23/20 15:46 Oxygen Flow Rate 0 01/23/20 15:46 Pain Level 4 01/23/20 15:46
[2020-01-23 16:18] LABS: Lactate 0.6 mmol/L (0.6-1.4)
[2020-01-23 16:19] LABS: Abs Immature Grans 0.04 k/cumm (0.0-0.09); Absolute Basophil Count 0.01 k/cumm (0.0-0.2); Absolute Eosinophil Count 0.41 k/cumm (0.0-0.7); Absolute Lymphocyte Count 1.22 k/cumm (1.2-3.4); Absolute Monocyte Count 0.76 k/cumm (0.11-0.7); Absolute Neutrophil Count 5.39 k/cumm (1.2-6.7); Basophils % 0.1; Eosinophils % 5.2; HCT 41.3 % (40.0-50.0); Immature Grans % 0.5 %; Lymphocytes % 15.6; Mean Corp. HGB Concentration 33.9 g/dL (32.0-36.0); Mean Corpuscular Hemoglobin 31.5 pg (27.0-33.0); Mean Corpuscular Volume 92.8 fL (80-95); Mean Platelet Volume 10.8 fL (8.0-11.0); Monocytes % 9.7; Neutrophils % 68.9; Platelet Count 215 x1000/uL (130-400); RBC 4.45 m/cumm (4.50-6.00); RBC Distribution Width 14.9 % (11.8-14.1); White Blood Cell Count 7.83 k/cumm (4.4-10.8)
[2020-01-23 16:32] LABS: ALT 33 U/L (16-63); AST 24 U/L (15-37); Albumin 3.3 g/dL (3.4-5.0); Alkaline Phosphatase 68 U/L (46-116); Anion Gap 8.3 mmol/L (3-11); BUN 16 mg/dL (7-18); Bilirubin, Total 0.3 mg/dL (0.2-1.0); C-Reactive Protein 4.78 mg/dL (0.0-0.3); CO2 27.7 mmol/L (21.0-32.0); CREATININE 0.97 mg/dL (0.70-1.30); Calcium 8.7 mg/dL (8.5-10.1); Chloride 104 mmol/L (98-107); Glucose 94 mg/dL (74-106); Potassium 3.7 mmol/L (3.5-5.1); Sodium 140 mmol/L (136-145); Total Protein 8.2 g/dL (6.4-8.2)
--- NOTE | 2020-01-23 17:55 | DI.VRAD_ITS ---
PROCEDURE INFORMATION: Exam: US Duplex Right Lower Extremity Veins, Limited Exam date and time: 01/23/2020 5:41 PM Age: 44 years old Clinical indication: Other: Right medial thigh mass, erythema TECHNIQUE: Imaging protocol: Real-time Duplex ultrasound of the Right Lower Extremity with 2-D mcneal scale, color Doppler flow and spectral waveform analysis with image documentation. Limited exam was focused on the right lower extremity veins. COMPARISON: No relevant prior studies available. FINDINGS: Right deep veins: Unremarkable. The common femoral, femoral, proximal profunda femoral and popliteal veins are patent without thrombus. Normal Doppler waveforms. Normal compressibility and/or augmentation response. Right superficial veins: Unremarkable. Saphenofemoral junction is patent without thrombus. Soft tissues: No definite right superior anterior thigh mass the identified. No hypervascular lesion. Subcutaneous edema and thickening of the soft tissues. Consider an MRI for further evaluation of possible mass corresponding to the clinical findings Lymph nodes: Right inguinal adenopathy with the largest lymph node measuring 4.4 x 0.9 x 1.9 cm. IMPRESSION: 1. No acute findings. No evidence of deep vein thrombosis. 2. Right inguinal adenopathy. No discrete anterior medial thigh mass. Consider MRI for further evaluation. Dictated and Authenticated by: Rhona Kraft MD. Ordering:ADRIANE Tam MD
[2020-01-23] MEDS: AMPICILLIN/SULBACTAM 3 GM in Normal Saline 100 ML IVPB (17:59)
[2020-01-23 18:50] VITALS: BP 128/80; PULSE 80; RESP 16; TEMP 36.6; O2SAT 96
[2020-01-23] MEDS: Amox. 875/Clav. 125, 2 TABS/BTL 1 TAB PO (18:51)
== END 2020-01-23 19:05 | disposition home or self-care (01) ==
PROVIDERS: Emergency Provider Emergency Medicine; PCP Family Medicine
DX: L03.115 Cellulitis of right lower limb (principal); R03.0 Elevated blood-pressure reading, without diagnosis of hypertension; F41.9 Anxiety disorder, unspecified
CPT/HCPCS: 36415; 80053; 87040; 96365; 99284; 83605; 85025; 86140; 93971; J0295

== ENCOUNTER 2020-02-02 01:26 | Outpatient (RCR) | payer BC, SELFPAY ==
[2020-02-02 08:10] LABS: Abs Immature Grans 0.01 k/cumm (0.0-0.09); Absolute Basophil Count 0.01 k/cumm (0.0-0.2); Absolute Eosinophil Count 0.26 k/cumm (0.0-0.7); Absolute Lymphocyte Count 1.18 k/cumm (1.2-3.4); Absolute Monocyte Count 0.45 k/cumm (0.11-0.7); Absolute Neutrophil Count 4.98 k/cumm (1.2-6.7); Basophils % 0.1; Eosinophils % 3.8; HCT 43.1 % (40.0-50.0); HGB 14.5 g/dL (13.5-17.5); Immature Grans % 0.1 %; Lymphocytes % 17.1; Mean Corp. HGB Concentration 33.6 g/dL (32.0-36.0); Mean Corpuscular Hemoglobin 31.4 pg (27.0-33.0); Mean Corpuscular Volume 93.3 fL (80-95); Mean Platelet Volume 11.1 fL (8.0-11.0); Monocytes % 6.5; Neutrophils % 72.4; Platelet Count 246 x1000/uL (130-400); RBC 4.62 m/cumm (4.50-6.00); RBC Distribution Width 14.9 % (11.8-14.1); White Blood Cell Count 6.89 k/cumm (4.4-10.8)
[2020-02-02] MEDS: VEDOLIZUMAB 300 MG in Normal Saline 250 ML 500 MG IVPB (08:58)
[2020-02-02] MEDS: Normal Saline Flush 10 ML SYR IVP (08:58)
== END 2020-02-15 23:59 | disposition home or self-care (01) ==
LOC: INF 01:26
PROVIDERS: Internal Medicine Gastroenterology; PCP Family Medicine; Visit Provider Internal Medicine
DX: K50.90 Crohn's disease, unspecified, without complications (principal)
CPT/HCPCS: 36415; 96365; 85025; J3380

== ENCOUNTER 2020-03-01 01:35 | Outpatient (RCR) | payer BC, SELFPAY ==
[2020-03-01 08:32] LABS: Abs Immature Grans 0.02 k/cumm (0.0-0.09); Absolute Basophil Count 0.01 k/cumm (0.0-0.2); Absolute Eosinophil Count 0.28 k/cumm (0.0-0.7); Absolute Lymphocyte Count 0.95 k/cumm (1.2-3.4); Absolute Monocyte Count 0.39 k/cumm (0.11-0.7); Absolute Neutrophil Count 3.96 k/cumm (1.2-6.7); Basophils % 0.2; HCT 46.3 % (40.0-50.0); HGB 15.5 g/dL (13.5-17.5); Immature Grans % 0.4 %; Lymphocytes % 16.9; Mean Corp. HGB Concentration 33.5 g/dL (32.0-36.0); Mean Corpuscular Hemoglobin 31.1 pg (27.0-33.0); Mean Platelet Volume 11.3 fL (8.0-11.0); Neutrophils % 70.5; Platelet Count 203 x1000/uL (130-400); RBC 4.98 m/cumm (4.50-6.00); RBC Distribution Width 15.3 % (11.8-14.1); White Blood Cell Count 5.61 k/cumm (4.4-10.8)
[2020-03-01] MEDS: Normal Saline Flush 10 ML SYR IVP (09:03)
[2020-03-01] MEDS: VEDOLIZUMAB 300 MG in Normal Saline 250 ML 500 MG IVPB (09:03)
== END 2020-03-16 23:59 | disposition home or self-care (01) ==
LOC: INF 01:35
PROVIDERS: Internal Medicine Gastroenterology; PCP Family Medicine; Visit Provider Internal Medicine
DX: K50.00 Crohn's disease of small intestine without complications (principal)
CPT/HCPCS: 36415; 96365; 85025; J3380

== ENCOUNTER 2020-03-01 08:58 | Outpatient (REF) | payer BC, SELFPAY ==
[2020-03-06 03:24] LABS: Lactoferrin, Qt, Stool <30.0 mcg/mL
== END 2020-03-01 09:18 ==
LOC: LBN 08:58
PROVIDERS: PCP Family Medicine; Visit Provider Internal Medicine Gastroenterology
DX: K50.912 Crohn's disease, unspecified, with intestinal obstruction (principal)
CPT/HCPCS: 83631

== ENCOUNTER 2020-03-29 01:16 | Outpatient (RCR) | payer BC, SELFPAY ==
[2020-03-29] MEDS: Normal Saline Flush 10 ML SYR IVP (08:30)
[2020-03-29 08:52] LABS: Abs Immature Grans 0.02 k/cumm (0.0-0.09); Absolute Basophil Count 0.01 k/cumm (0.0-0.2); Absolute Eosinophil Count 0.33 k/cumm (0.0-0.7); Absolute Lymphocyte Count 1.16 k/cumm (1.2-3.4); Absolute Monocyte Count 0.45 k/cumm (0.11-0.7); Absolute Neutrophil Count 4.36 k/cumm (1.2-6.7); Basophils % 0.2; Eosinophils % 5.2; HCT 45.1 % (40.0-50.0); HGB 15.4 g/dL (13.5-17.5); Immature Grans % 0.3 %; Lymphocytes % 18.3; Mean Corp. HGB Concentration 34.1 g/dL (32.0-36.0); Mean Corpuscular Hemoglobin 31.6 pg (27.0-33.0); Mean Corpuscular Volume 92.4 fL (80-95); Mean Platelet Volume 11.3 fL (8.0-11.0); Monocytes % 7.1; Neutrophils % 68.9; Platelet Count 206 x1000/uL (130-400); RBC 4.88 m/cumm (4.50-6.00); White Blood Cell Count 6.33 k/cumm (4.4-10.8)
[2020-03-29] MEDS: VEDOLIZUMAB 300 MG in Normal Saline 250 ML 500 MG IVPB (09:12)
== END 2020-04-16 23:59 | disposition home or self-care (01) ==
LOC: INF 01:16
PROVIDERS: PCP Family Medicine; Visit Provider Internal Medicine
DX: K50.90 Crohn's disease, unspecified, without complications (principal)
CPT/HCPCS: 82306; 96365; 85025; J3380

== ENCOUNTER 2020-04-26 02:02 | Outpatient (RCR) | payer BC, SELFPAY ==
[2020-04-26 08:46] LABS: Abs Immature Grans 0.02 10^3/uL (0.0-0.06); Absolute Basophil Count 0.03 10^3/uL (0.0-0.2); Absolute Eosinophil Count 0.32 10^3/uL (0.0-0.7); Absolute Lymphocyte Count 1.01 10^3/uL (1.2-3.4); Absolute Neutrophil Count 4.27 10^3/uL (1.2-6.7); Basophils % 0.5; Eosinophils % 5.2; HCT 45.8 % (40.0-50.0); HGB 15.5 g/dL (13.5-17.5); Immature Grans % 0.3; Lymphocytes % 16.4; MCH 31.3 pg (27.0-33.0); MCHC 33.8 % (32.0-36.0); MCV 92.5 fL (80-95); MPV 11.5 fL (8.0-11.0); Monocytes % 8.1; Neutrophils % 69.5; Nucleated RBC 0 %; Platelet Count 188 10^3/uL (130-400); RBC 4.95 10^6/uL (4.36-5.78); RDW 14.2 % (11.8-14.1); RDW-SD 48.9 fL; WBC 6.15 10^3/uL (4.4-10.8)
[2020-04-26] MEDS: VEDOLIZUMAB 300 MG in Normal Saline 250 ML 500 MG IVPB (08:58)
[2020-04-26] MEDS: Normal Saline Flush 10 ML SYR IVP (08:59)
== END 2020-05-17 23:59 | disposition home or self-care (01) ==
LOC: INF 02:02
PROVIDERS: PCP Family Medicine; Visit Provider Internal Medicine
DX: K50.90 Crohn's disease, unspecified, without complications (principal); Z79.899 Other long term (current) drug therapy
CPT/HCPCS: 36415; 96365; 85025; J3380

== ENCOUNTER 2020-05-25 04:00 | Outpatient (RCR) | payer BC, SELFPAY ==
[2020-05-25] MEDS: Normal Saline Flush 10 ML SYR IVP (08:35)
[2020-05-25 08:37] LABS: HCT 42.1 % (40.0-50.0); HGB 14.2 g/dL (13.5-17.5); MCH 31.7 pg (27.0-33.0); MCHC 33.7 % (32.0-36.0); MPV 10.8 fL (8.0-11.0); Platelet Count 242 10^3/uL (130-400); RBC 4.48 10^6/uL (4.36-5.78); WBC 7.47 10^3/uL (4.4-10.8)
[2020-05-25] MEDS: VEDOLIZUMAB 300 MG in Normal Saline 250 ML 500 MG IVPB (08:56)
== END 2020-06-16 23:59 | disposition home or self-care (01) ==
LOC: INF 04:00
PROVIDERS: PCP Family Medicine; Visit Provider Internal Medicine Gastroenterology
DX: Z79.899 Other long term (current) drug therapy (principal); K50.90 Crohn's disease, unspecified, without complications
CPT/HCPCS: 36415; 85027; 96365; J3380

== ENCOUNTER 2020-06-21 01:00 | Outpatient (RCR) | payer BC, SELFPAY ==
[2020-06-21] MEDS: VEDOLIZUMAB 300 MG in Normal Saline 250 ML 500 MG IVPB (09:00)
[2020-06-21 09:01] LABS: HGB 15.2 g/dL (13.5-17.5); MCH 31.7 pg (27.0-33.0); MCHC 33.8 % (32.0-36.0); MCV 93.9 fL (80-95); MPV 11.9 fL (8.0-11.0); Platelet Count 182 10^3/uL (130-400); RBC 4.79 10^6/uL (4.36-5.78); RDW 14.5 % (11.8-14.1); RDW-SD 49.4 fL; WBC 5.89 10^3/uL (4.4-10.8)
[2020-06-21] MEDS: Normal Saline Flush 10 ML SYR IVP (09:02)
== END 2020-07-17 23:59 | disposition home or self-care (01) ==
LOC: INF 01:00
PROVIDERS: PCP Family Medicine; Visit Provider Internal Medicine
DX: Z79.899 Other long term (current) drug therapy (principal); K50.90 Crohn's disease, unspecified, without complications
CPT/HCPCS: 36415; 85027; 96365; J3380

== ENCOUNTER 2020-08-16 02:05 | Outpatient (RCR) | payer BC, SELFPAY ==
[2020-07-19] MEDS: Normal Saline Flush 10 ML SYR IVP (08:25)
[2020-07-19 08:29] LABS: HCT 43.2 % (40.0-50.0); HGB 14.6 g/dL (13.5-17.5); MCH 31.3 pg (27.0-33.0); MCHC 33.8 % (32.0-36.0); MCV 92.7 fL (80-95); MPV 10.9 fL (8.0-11.0); Platelet Count 200 10^3/uL (130-400); RBC 4.66 10^6/uL (4.36-5.78); RDW 14.3 % (11.8-14.1); WBC 7.55 10^3/uL (4.4-10.8)
[2020-07-19] MEDS: VEDOLIZUMAB 300 MG in Normal Saline 250 ML 500 MG IVPB (08:44)
[2020-08-16 13:40] LABS: Abs Immature Grans 0.03 10^3/uL (0.0-0.06); Absolute Basophil Count 0.02 10^3/uL (0.0-0.2); Absolute Eosinophil Count 0.31 10^3/uL (0.0-0.7); Absolute Lymphocyte Count 1.06 10^3/uL (1.2-3.4); Absolute Monocyte Count 0.54 10^3/uL (0.1-0.8); Absolute Neutrophil Count 4.28 10^3/uL (1.2-6.7); Basophils % 0.3; HCT 44.5 % (40.0-50.0); Immature Grans % 0.5; MCH 31.6 pg (27.0-33.0); MCHC 33.7 % (32.0-36.0); MCV 93.9 fL (80-95); MPV 11.1 fL (8.0-11.0); Monocytes % 8.7; Neutrophils % 68.5; Nucleated RBC 0 %; Platelet Count 209 10^3/uL (130-400); RBC 4.74 10^6/uL (4.36-5.78); RDW-SD 48.7 fL; WBC 6.24 10^3/uL (4.4-10.8)
[2020-08-16] MEDS: VEDOLIZUMAB 300 MG in Normal Saline 250 ML 500 MG IVPB (13:50)
[2020-08-16] MEDS: Normal Saline Flush 10 ML SYR IVP (13:51)
== END 2020-08-16 23:59 | disposition home or self-care (01) ==
LOC: INF 02:05
PROVIDERS: PCP Family Medicine; Visit Provider Internal Medicine
DX: K50.912 Crohn's disease, unspecified, with intestinal obstruction (principal)
CPT/HCPCS: 36415; 85027; 96365; 85025; J3380

== ENCOUNTER 2020-09-13 08:30 | Outpatient (RCR) | payer BC, SELFPAY ==
[2020-09-13] MEDS: Normal Saline Flush 10 ML SYR IVP (08:18)
[2020-09-13 08:29] LABS: Abs Immature Grans 0.03 10^3/uL (0.0-0.06); Absolute Basophil Count 0.03 10^3/uL (0.0-0.2); Absolute Eosinophil Count 0.29 10^3/uL (0.0-0.7); Absolute Lymphocyte Count 0.94 10^3/uL (1.2-3.4); Absolute Monocyte Count 0.48 10^3/uL (0.1-0.8); Absolute Neutrophil Count 4.66 10^3/uL (1.2-6.7); Basophils % 0.5; Eosinophils % 4.5; HCT 44.3 % (40.0-50.0); Immature Grans % 0.5; Lymphocytes % 14.6; MCH 31.3 pg (27.0-33.0); MCHC 33.9 % (32.0-36.0); MCV 92.5 fL (80-95); Monocytes % 7.5; Neutrophils % 72.4; Nucleated RBC 0 %; Platelet Count 201 10^3/uL (130-400); RBC 4.79 10^6/uL (4.36-5.78); RDW-SD 47.5 fL; WBC 6.43 10^3/uL (4.4-10.8)
[2020-09-13] MEDS: VEDOLIZUMAB 300 MG in Normal Saline 250 ML 500 MG IVPB (08:58)
[2020-09-20 09:37] LABS: Vedolizumab Ab <9.8 ng/mL (<9.8); Vedolizumab QN, S 14.8 mcg/mL
== END 2020-09-16 23:59 | disposition home or self-care (01) ==
LOC: INF 08:30
PROVIDERS: PCP Family Medicine; Visit Provider Nurse Practitioner Family
DX: K50.912 Crohn's disease, unspecified, with intestinal obstruction (principal); Z79.899 Other long term (current) drug therapy
CPT/HCPCS: 82397; 96365; 85025; J3380

== ENCOUNTER 2020-10-11 08:30 | Outpatient (RCR) | payer BC, SELFPAY ==
[2020-10-11 08:39] LABS: Abs Immature Grans 0.04 10^3/uL (0.0-0.06); Absolute Basophil Count 0.03 10^3/uL (0.0-0.2); Absolute Eosinophil Count 0.27 10^3/uL (0.0-0.7); Absolute Lymphocyte Count 0.91 10^3/uL (1.2-3.4); Absolute Monocyte Count 0.53 10^3/uL (0.1-0.8); Absolute Neutrophil Count 4.49 10^3/uL (1.2-6.7); Basophils % 0.5; Eosinophils % 4.3; HCT 47.1 % (40.0-50.0); HGB 15.8 g/dL (13.5-17.5); Immature Grans % 0.6; Lymphocytes % 14.5; MCH 31.3 pg (27.0-33.0); MCHC 33.5 % (32.0-36.0); MCV 93.5 fL (80-95); MPV 10.8 fL (8.0-11.0); Monocytes % 8.5; Neutrophils % 71.6; Nucleated RBC 0 %; Platelet Count 221 10^3/uL (130-400); RBC 5.04 10^6/uL (4.36-5.78); RDW 14.3 % (11.8-14.1); RDW-SD 48.2 fL; WBC 6.27 10^3/uL (4.4-10.8)
[2020-10-11 08:50] LABS: ALT 42 U/L (16-63); AST 34 U/L (15-37); Albumin 3.6 g/dL (3.4-5.0); Alkaline Phosphatase 77 U/L (46-116); Anion Gap 3.7 mmol/L (3-11); BUN 14 mg/dL (7-18); Bilirubin, Total 0.5 mg/dL (0.2-1.0); CO2 29.3 mmol/L (21.0-32.0); CREATININE 1.02 mg/dL (0.70-1.30); Calcium 8.9 mg/dL (8.5-10.1); Calculated LDL 53 mg/dL (<100); Chloride 103 mmol/L (98-107); Cholesterol 137 mg/dL (<200); Glucose 119 mg/dL (74-106); HDL Cholesterol 35 mg/dL (40-60); Potassium 4.1 mmol/L (3.5-5.1); Sodium 136 mmol/L (136-145); Total Protein 8.5 g/dL (6.4-8.2); Triglyceride 247 mg/dL (<150)
[2020-10-11] MEDS: VEDOLIZUMAB 300 MG in Normal Saline 250 ML 500 MG IVPB (08:59)
[2020-10-11] MEDS: Normal Saline Flush 10 ML SYR IVP (08:59)
== END 2020-10-17 23:59 | disposition home or self-care (01) ==
LOC: INF 08:30
PROVIDERS: Internal Medicine Gastroenterology; PCP Family Medicine; Visit Provider Nurse Practitioner Family
DX: K50.912 Crohn's disease, unspecified, with intestinal obstruction (principal); Z13.220 Encounter for screening for lipoid disorders
CPT/HCPCS: 36415; 80053; 80061; 96365; 85025; J3380

== ENCOUNTER 2020-11-10 02:09 | Outpatient (RCR) | payer BC, SELFPAY ==
[2020-11-10] MEDS: Normal Saline Flush 10 ML SYR IVP (08:24)
[2020-11-10 08:30] LABS: Abs Immature Grans 0.02 10^3/uL (0.0-0.06); Absolute Basophil Count 0.03 10^3/uL (0.0-0.2); Absolute Eosinophil Count 0.32 10^3/uL (0.0-0.7); Absolute Lymphocyte Count 0.82 10^3/uL (1.2-3.4); Absolute Monocyte Count 0.48 10^3/uL (0.1-0.8); Absolute Neutrophil Count 4.75 10^3/uL (1.2-6.7); Basophils % 0.5; HCT 44.1 % (40.0-50.0); HGB 14.8 g/dL (13.5-17.5); Immature Grans % 0.3; Lymphocytes % 12.8; MCH 31.6 pg (27.0-33.0); MCHC 33.6 % (32.0-36.0); MCV 94.2 fL (80-95); MPV 10.9 fL (8.0-11.0); Monocytes % 7.5; Neutrophils % 73.9; Nucleated RBC 0 %; Platelet Count 203 10^3/uL (130-400); RBC 4.68 10^6/uL (4.36-5.78); RDW 14.2 % (11.8-14.1); RDW-SD 48.4 fL; WBC 6.42 10^3/uL (4.4-10.8)
[2020-11-10] MEDS: VEDOLIZUMAB 300 MG in Normal Saline 250 ML 500 MG IVPB (08:47)
== END 2020-11-14 23:59 | disposition home or self-care (01) ==
LOC: INF 02:09
PROVIDERS: PCP Family Medicine; Visit Provider Internal Medicine Gastroenterology
DX: Z79.899 Other long term (current) drug therapy (principal); K50.912 Crohn's disease, unspecified, with intestinal obstruction
CPT/HCPCS: 36415; 96365; 85025; J3380

== ENCOUNTER 2020-11-30 09:47 | Outpatient (REF) | payer BC, SELFPAY ==
[2020-12-04 05:23] LABS: Lactoferrin, Qt, Stool <30.0 mcg/mL
== END 2020-11-30 09:48 | disposition home or self-care (01) ==
LOC: LBN 09:47
PROVIDERS: PCP Family Medicine; Visit Provider Internal Medicine Gastroenterology
DX: K50.912 Crohn's disease, unspecified, with intestinal obstruction (principal)
CPT/HCPCS: 83631

== ENCOUNTER 2020-12-06 08:30 | Outpatient (RCR) | payer BC, SELFPAY ==
[2020-12-06 08:45] LABS: Abs Immature Grans 0.02 10^3/uL (0.0-0.06); Absolute Basophil Count 0.03 10^3/uL (0.0-0.2); Absolute Eosinophil Count 0.38 10^3/uL (0.0-0.7); Absolute Lymphocyte Count 0.94 10^3/uL (1.2-3.4); Absolute Monocyte Count 0.45 10^3/uL (0.1-0.8); Absolute Neutrophil Count 3.27 10^3/uL (1.2-6.7); Basophils % 0.6; Eosinophils % 7.5; HCT 44.6 % (40.0-50.0); HGB 15.1 g/dL (13.5-17.5); Immature Grans % 0.4; Lymphocytes % 18.5; MCH 32.2 pg (27.0-33.0); MCHC 33.9 % (32.0-36.0); MCV 95.1 fL (80-95); MPV 11.1 fL (8.0-11.0); Monocytes % 8.8; Neutrophils % 64.2; Nucleated RBC 0 %; Platelet Count 204 10^3/uL (130-400); RBC 4.69 10^6/uL (4.36-5.78); RDW 14.6 % (11.8-14.1); RDW-SD 50.7 fL; WBC 5.09 10^3/uL (4.4-10.8)
[2020-12-06] MEDS: VEDOLIZUMAB 300 MG in Normal Saline 250 ML 500 MG IVPB (09:03)
[2020-12-06] MEDS: Normal Saline Flush 10 ML SYR IVP (09:03)
== END 2020-12-15 23:59 | disposition home or self-care (01) ==
LOC: INF 08:30
PROVIDERS: PCP Family Medicine; Visit Provider Internal Medicine Gastroenterology
DX: K50.912 Crohn's disease, unspecified, with intestinal obstruction (principal); Z79.899 Other long term (current) drug therapy
CPT/HCPCS: 36415; 96365; 85025; J3380

== ENCOUNTER 2020-12-17 17:18 | Outpatient (REF) | payer BC, SELFPAY ==
[2020-12-19 12:53] LABS: COVID-19 RT-PCR UVMMC Result Negative (Negative)
== END 2020-12-17 17:19 | disposition home or self-care (01) ==
LOC: NCHCN 17:18
PROVIDERS: PCP Family Medicine; Visit Provider Student in an Organized Health Care Education/Training Program
DX: Z20.822 Contact with and (suspected) exposure to COVID-19 (principal)
CPT/HCPCS: U0003

== ENCOUNTER 2021-01-03 10:19 | Outpatient (CLI) | payer BC, SELFPAY ==
[2021-01-03] MEDS: Inhaler, Assist Device 1 EACH MC (16:32)
[2021-01-03] MEDS: Albuterol HFA 18 GM 200 PUFF INH IH (16:32)
--- NOTE | 2021-01-10 11:27 | W.PFT ---
Date of service: 01/03/21 Time of Service: 02:59 Pulmonary Function Test Result Interpretation Spirometry: Severe obstructive airways disease with significant bronchodilator response Lung Volumes: No evidence of restriction Diffusion Capacity: Normal Airway Pressure: Elevated Impression Severe obstructive airways disease with significant bronchodilator response this is associated with elevated airways resistance Clinical Correlation therefore is recommended.
== END 2021-01-03 10:20 | disposition home or self-care (01) ==
LOC: RT 01-04 10:20
PROVIDERS: PCP Family Medicine; Visit Provider Family Medicine
DX: R06.09 Other forms of dyspnea (principal); Z87.891 Personal history of nicotine dependence
CPT/HCPCS: 94060; 94726; 94729

== ENCOUNTER 2021-01-04 08:15 | Outpatient (RCR) | payer BC, SELFPAY ==
[2021-01-04 08:57] LABS: Abs Immature Grans 0.03 10^3/uL (0.0-0.06); Absolute Basophil Count 0.02 10^3/uL (0.0-0.2); Absolute Eosinophil Count 0.41 10^3/uL (0.0-0.7); Absolute Lymphocyte Count 0.82 10^3/uL (1.2-3.4); Absolute Neutrophil Count 4.47 10^3/uL (1.2-6.7); Basophils % 0.3; Eosinophils % 6.5; HCT 44.3 % (40.0-50.0); HGB 14.8 g/dL (13.5-17.5); Immature Grans % 0.5; Lymphocytes % 12.9; MCH 31.7 pg (27.0-33.0); MCHC 33.4 % (32.0-36.0); MCV 94.9 fL (80-95); MPV 11.4 fL (8.0-11.0); Monocytes % 9.4; Neutrophils % 70.4; Nucleated RBC 0 %; Platelet Count 220 10^3/uL (130-400); RBC 4.67 10^6/uL (4.36-5.78); RDW 14.6 % (11.8-14.1); RDW-SD 50.4 fL; WBC 6.35 10^3/uL (4.4-10.8)
[2021-01-04] MEDS: Normal Saline Flush 10 ML SYR IVP (08:57)
[2021-01-04] MEDS: VEDOLIZUMAB 300 MG in Normal Saline 250 ML 500 MG IVPB (08:57)
== END 2021-01-14 23:59 | disposition home or self-care (01) ==
LOC: INF 08:15
PROVIDERS: PCP Family Medicine; Visit Provider Internal Medicine Gastroenterology
DX: K50.912 Crohn's disease, unspecified, with intestinal obstruction (principal)
CPT/HCPCS: 36415; 96365; 85025; J3380

== ENCOUNTER 2021-02-02 08:30 | Outpatient (RCR) | payer BC, SELFPAY ==
[2021-02-02] MEDS: Normal Saline Flush 10 ML SYR IVP (08:30)
[2021-02-02 08:36] LABS: Abs Immature Grans 0.02 10^3/uL (0.0-0.06); Absolute Basophil Count 0.01 10^3/uL (0.0-0.2); Absolute Eosinophil Count 0.26 10^3/uL (0.0-0.7); Absolute Lymphocyte Count 0.85 10^3/uL (1.2-3.4); Absolute Monocyte Count 0.42 10^3/uL (0.1-0.8); Absolute Neutrophil Count 4.21 10^3/uL (1.2-6.7); Basophils % 0.2; Eosinophils % 4.5; HCT 43.6 % (40.0-50.0); Immature Grans % 0.3; Lymphocytes % 14.7; MCH 32.5 pg (27.0-33.0); MCHC 34.4 % (32.0-36.0); MCV 94.4 fL (80-95); MPV 11.3 fL (8.0-11.0); Monocytes % 7.3; Nucleated RBC 0 %; Platelet Count 195 10^3/uL (130-400); RBC 4.62 10^6/uL (4.36-5.78); RDW 14.3 % (11.8-14.1); RDW-SD 49.1 fL; WBC 5.77 10^3/uL (4.4-10.8)
[2021-02-02] MEDS: VEDOLIZUMAB 300 MG in Normal Saline 250 ML 500 MG IVPB (08:55)
[2021-02-03 14:07] LABS: Total Protein 7.7 g/dL (6.3-8.2)
== END 2021-02-14 23:59 | disposition home or self-care (01) ==
LOC: INF 08:30
PROVIDERS: PCP Family Medicine; Visit Provider Internal Medicine Gastroenterology
DX: K50.912 Crohn's disease, unspecified, with intestinal obstruction (principal)
CPT/HCPCS: 36415; 96365; 84165; 85025; J3380

== ENCOUNTER 2021-03-03 01:25 | Outpatient (RCR) | payer BC, SELFPAY ==
[2021-03-03] MEDS: Normal Saline Flush 10 ML SYR IVP (08:27)
[2021-03-03] MEDS: VEDOLIZUMAB 300 MG in Normal Saline 250 ML 500 MG IVPB (08:39)
[2021-03-03 08:40] LABS: Abs Immature Grans 0.03 10^3/uL (0.0-0.06); Absolute Basophil Count 0.02 10^3/uL (0.0-0.2); Absolute Eosinophil Count 0.34 10^3/uL (0.0-0.7); Absolute Lymphocyte Count 0.77 10^3/uL (1.2-3.4); Absolute Monocyte Count 0.68 10^3/uL (0.1-0.8); Absolute Neutrophil Count 6.13 10^3/uL (1.2-6.7); Basophils % 0.3; Eosinophils % 4.3; HCT 43.6 % (40.0-50.0); HGB 14.7 g/dL (13.5-17.5); Immature Grans % 0.4; Lymphocytes % 9.7; MCH 31.4 pg (27.0-33.0); MCHC 33.7 % (32.0-36.0); MCV 93.2 fL (80-95); MPV 10.8 fL (8.0-11.0); Monocytes % 8.5; Neutrophils % 76.8; Nucleated RBC 0 %; Platelet Count 212 10^3/uL (130-400); RBC 4.68 10^6/uL (4.36-5.78); RDW 14.3 % (11.8-14.1); RDW-SD 48.6 fL; WBC 7.97 10^3/uL (4.4-10.8)
[2021-03-09 16:02] LABS: Vedolizumab Ab <9.8 ng/mL (<9.8); Vedolizumab QN, S 10.9 mcg/mL
== END 2021-03-16 23:59 | disposition home or self-care (01) ==
LOC: INF 01:25
PROVIDERS: PCP Family Medicine; Visit Provider Internal Medicine Gastroenterology
DX: K50.912 Crohn's disease, unspecified, with intestinal obstruction (principal); Z79.899 Other long term (current) drug therapy
CPT/HCPCS: 36415; 82397; 96365; 85025; J3380

== ENCOUNTER 2021-03-30 02:42 | Outpatient (RCR) | payer BC, SELFPAY ==
[2021-03-30 14:29] LABS: Abs Immature Grans 0.02 10^3/uL (0.0-0.06); Absolute Basophil Count 0.01 10^3/uL (0.0-0.2); Absolute Eosinophil Count 0.32 10^3/uL (0.0-0.7); Absolute Lymphocyte Count 0.98 10^3/uL (1.2-3.4); Absolute Monocyte Count 0.44 10^3/uL (0.1-0.8); Absolute Neutrophil Count 4.44 10^3/uL (1.2-6.7); Basophils % 0.2; Eosinophils % 5.2; HCT 43.5 % (40.0-50.0); HGB 14.8 g/dL (13.5-17.5); Immature Grans % 0.3; Lymphocytes % 15.8; MCH 31.9 pg (27.0-33.0); MCV 93.8 fL (80-95); MPV 10.9 fL (8.0-11.0); Monocytes % 7.1; Neutrophils % 71.4; Nucleated RBC 0 %; Platelet Count 208 10^3/uL (130-400); RBC 4.64 10^6/uL (4.36-5.78); RDW-SD 48.2 fL; WBC 6.21 10^3/uL (4.4-10.8)
[2021-03-30] MEDS: Normal Saline Flush 10 ML SYR IVP (14:46)
[2021-03-30] MEDS: VEDOLIZUMAB 300 MG in Normal Saline 250 ML 500 MG IVPB (14:46)
== END 2021-04-16 23:59 | disposition home or self-care (01) ==
LOC: INF 02:42
PROVIDERS: PCP Family Medicine; Visit Provider Internal Medicine Gastroenterology
DX: K50.912 Crohn's disease, unspecified, with intestinal obstruction (principal); Z79.899 Other long term (current) drug therapy
CPT/HCPCS: 36415; 96365; 85025; J3380

== ENCOUNTER 2021-04-27 08:10 | Outpatient (RCR) | payer BC, SELFPAY ==
[2021-04-27] MEDS: Normal Saline Flush 10 ML SYR IVP (08:18)
[2021-04-27 08:27] LABS: Abs Immature Grans 0.02 10^3/uL (0.0-0.06); Absolute Basophil Count 0.02 10^3/uL (0.0-0.2); Absolute Eosinophil Count 0.26 10^3/uL (0.0-0.7); Absolute Lymphocyte Count 1.05 10^3/uL (1.2-3.4); Absolute Monocyte Count 0.45 10^3/uL (0.1-0.8); Absolute Neutrophil Count 3.42 10^3/uL (1.2-6.7); Basophils % 0.4; HCT 43.7 % (40.0-50.0); HGB 14.8 g/dL (13.5-17.5); Immature Grans % 0.4; Lymphocytes % 20.1; MCHC 33.9 % (32.0-36.0); MCV 94.4 fL (80-95); MPV 10.8 fL (8.0-11.0); Monocytes % 8.6; Neutrophils % 65.5; Nucleated RBC 0 %; Platelet Count 196 10^3/uL (130-400); RBC 4.63 10^6/uL (4.36-5.78); RDW 14.4 % (11.8-14.1); RDW-SD 49.8 fL; WBC 5.22 10^3/uL (4.4-10.8)
[2021-04-27] MEDS: VEDOLIZUMAB 300 MG in Normal Saline 250 ML 500 MG IVPB (08:56)
== END 2021-05-17 23:59 | disposition home or self-care (01) ==
LOC: INF 08:10
PROVIDERS: PCP Family Medicine; Visit Provider Internal Medicine Gastroenterology
DX: K50.912 Crohn's disease, unspecified, with intestinal obstruction (principal)
CPT/HCPCS: 36415; 96365; 85025; J3380

== ENCOUNTER 2021-05-25 08:30 | Outpatient (RCR) | payer BC, SELFPAY ==
[2021-05-25] MEDS: Normal Saline Flush 10 ML SYR IVP (08:27)
[2021-05-25 08:36] LABS: Abs Immature Grans 0.02 10^3/uL (0.0-0.06); Absolute Basophil Count 0.01 10^3/uL (0.0-0.2); Absolute Eosinophil Count 0.22 10^3/uL (0.0-0.7); Absolute Lymphocyte Count 0.85 10^3/uL (1.2-3.4); Absolute Monocyte Count 0.76 10^3/uL (0.1-0.8); Absolute Neutrophil Count 4.01 10^3/uL (1.2-6.7); Basophils % 0.2; Eosinophils % 3.7; HCT 44.7 % (40.0-50.0); HGB 15.1 g/dL (13.5-17.5); Immature Grans % 0.3; Lymphocytes % 14.5; MCH 32.1 pg (27.0-33.0); MCHC 33.8 % (32.0-36.0); MCV 94.9 fL (80-95); MPV 10.9 fL (8.0-11.0); Monocytes % 12.9; Neutrophils % 68.4; Nucleated RBC 0 %; Platelet Count 164 10^3/uL (130-400); RBC 4.71 10^6/uL (4.36-5.78); RDW 14.1 % (11.8-14.1); RDW-SD 49.4 fL; WBC 5.87 10^3/uL (4.4-10.8)
[2021-05-25] MEDS: VEDOLIZUMAB 300 MG in Normal Saline 250 ML 500 MG IVPB (08:44)
== END 2021-06-16 23:59 | disposition home or self-care (01) ==
LOC: INF 08:30
PROVIDERS: PCP Family Medicine; Visit Provider Internal Medicine Gastroenterology
DX: K50.913 Crohn's disease, unspecified, with fistula (principal)
CPT/HCPCS: 36415; 96365; 85025; J3380

== ENCOUNTER 2021-06-22 08:00 | Outpatient (RCR) | payer BC, SELFPAY ==
[2021-06-22 08:41] LABS: Abs Immature Grans 0.04 10^3/uL (0.0-0.06); Absolute Basophil Count 0.03 10^3/uL (0.0-0.2); Absolute Eosinophil Count 0.28 10^3/uL (0.0-0.7); Absolute Lymphocyte Count 1.03 10^3/uL (1.2-3.4); Absolute Monocyte Count 0.48 10^3/uL (0.1-0.8); Absolute Neutrophil Count 4.31 10^3/uL (1.2-6.7); Basophils % 0.5; Eosinophils % 4.5; HCT 47.9 % (40.0-50.0); HGB 16.2 g/dL (13.5-17.5); Immature Grans % 0.6; Lymphocytes % 16.7; MCH 32.1 pg (27.0-33.0); MCHC 33.8 % (32.0-36.0); MCV 94.9 fL (80-95); MPV 11.3 fL (8.0-11.0); Monocytes % 7.8; Neutrophils % 69.9; Nucleated RBC 0 %; Platelet Count 204 10^3/uL (130-400); RBC 5.05 10^6/uL (4.36-5.78); RDW 13.7 % (11.8-14.1); RDW-SD 47.8 fL; WBC 6.17 10^3/uL (4.4-10.8)
[2021-06-22] MEDS: VEDOLIZUMAB 300 MG in Normal Saline 250 ML 500 MG IVPB (08:45)
[2021-06-22] MEDS: Normal Saline Flush 10 ML SYR IVP (08:46)
== END 2021-07-17 23:59 | disposition home or self-care (01) ==
LOC: INF 08:00
PROVIDERS: Family Medicine; PCP Family Medicine; Visit Provider Internal Medicine
DX: K50.912 Crohn's disease, unspecified, with intestinal obstruction (principal)
CPT/HCPCS: 36415; 80053; 80061; 96365; 85025; J3380

== ENCOUNTER 2021-07-20 08:00 | Outpatient (RCR) | payer BC, SELFPAY ==
[2021-07-20 08:37] LABS: Abs Immature Grans 0.04 10^3/uL (0.0-0.06); Absolute Basophil Count 0.02 10^3/uL (0.0-0.2); Absolute Eosinophil Count 0.34 10^3/uL (0.0-0.7); Absolute Lymphocyte Count 0.83 10^3/uL (1.2-3.4); Absolute Monocyte Count 0.67 10^3/uL (0.1-0.8); Absolute Neutrophil Count 6.44 10^3/uL (1.2-6.7); Basophils % 0.2; Eosinophils % 4.1; HCT 45.1 % (40.0-50.0); HGB 15.5 g/dL (13.5-17.5); Immature Grans % 0.5; MCH 32.3 pg (27.0-33.0); MCHC 34.4 % (32.0-36.0); MPV 11.2 fL (8.0-11.0); Neutrophils % 77.2; Nucleated RBC 0 %; Platelet Count 196 10^3/uL (130-400); RDW 13.7 % (11.8-14.1); RDW-SD 47.2 fL; WBC 8.34 10^3/uL (4.4-10.8)
[2021-07-20] MEDS: Normal Saline Flush 10 ML SYR IVP (09:03)
[2021-07-20] MEDS: VEDOLIZUMAB 300 MG in Normal Saline 250 ML 500 MG IVPB (09:03)
== END 2021-08-16 23:59 | disposition home or self-care (01) ==
LOC: INF 08:00
PROVIDERS: Family Medicine; PCP Family Medicine; Visit Provider Internal Medicine
DX: K50.912 Crohn's disease, unspecified, with intestinal obstruction (principal); Z79.899 Other long term (current) drug therapy
CPT/HCPCS: 36415; 96365; 85025; J3380

== ENCOUNTER 2021-08-05 01:24 | Outpatient (CLI) | payer BC, SELFPAY ==
--- NOTE | 2021-08-05 08:30 | DI.RAD_ITS ---
Exam(s) XR CHEST 2V PA LATERAL EXAM: XR CHEST 2V PA LATERAL CLINICAL HISTORY: dyspnea on exertion, COPD, J44.9 TECHNIQUE: 2D digital imaging was performed. COMPARISON: No exams were available for comparison FINDINGS: MEDIASTINUM: Normal. HEART: Normal. PULMONARY VASCULATURE: Normal. LUNGS: Clear. PLEURAL SPACE: No pleural effusion or pneumothorax. BONE:Unremarkable for age. IMPRESSION: No acute abnormality. DATA REPOSITORY: RADIATION DOSE DELIVERED:
== END 2021-08-05 01:44 ==
PROVIDERS: PCP Family Medicine; Visit Provider Student in an Organized Health Care Education/Training Program
DX: J44.9 Chronic obstructive pulmonary disease, unspecified (principal); R06.09 Other forms of dyspnea
CPT/HCPCS: 71046

== ENCOUNTER 2021-09-14 00:34 | Outpatient (RCR) | payer BC, SELFPAY ==
[2021-08-17] MEDS: Normal Saline Flush 10 ML SYR IVP (08:35)
[2021-08-17 08:44] LABS: Abs Immature Grans 0.02 10^3/uL (0.0-0.06); Absolute Basophil Count 0.03 10^3/uL (0.0-0.2); Absolute Eosinophil Count 0.32 10^3/uL (0.0-0.7); Absolute Lymphocyte Count 0.81 10^3/uL (1.2-3.4); Absolute Monocyte Count 0.56 10^3/uL (0.1-0.8); Absolute Neutrophil Count 5.23 10^3/uL (1.2-6.7); Basophils % 0.4; Eosinophils % 4.6; HGB 15.6 g/dL (13.5-17.5); Immature Grans % 0.3; Lymphocytes % 11.6; MCH 31.8 pg (27.0-33.0); MCHC 33.9 % (32.0-36.0); MCV 93.9 fL (80-95); MPV 11.4 fL (8.0-11.0); Neutrophils % 75.1; Nucleated RBC 0 %; Platelet Count 204 10^3/uL (130-400); RDW 13.6 % (11.8-14.1); RDW-SD 45.9 fL; WBC 6.97 10^3/uL (4.4-10.8)
[2021-08-17] MEDS: VEDOLIZUMAB 300 MG in Normal Saline 250 ML 500 MG IVPB (09:00)
[2021-09-14] MEDS: VEDOLIZUMAB 300 MG in Normal Saline 250 ML 500 MG IVPB (08:48)
[2021-09-14] MEDS: Normal Saline Flush 10 ML SYR IVP (08:48)
[2021-09-14 08:52] LABS: Abs Immature Grans 0.04 10^3/uL (0.0-0.06); Absolute Basophil Count 0.03 10^3/uL (0.0-0.2); Absolute Eosinophil Count 0.39 10^3/uL (0.0-0.7); Absolute Lymphocyte Count 0.85 10^3/uL (1.2-3.4); Absolute Monocyte Count 0.69 10^3/uL (0.1-0.8); Absolute Neutrophil Count 5.77 10^3/uL (1.2-6.7); Basophils % 0.4; HCT 45.6 % (40.0-50.0); HGB 15.3 g/dL (13.5-17.5); Immature Grans % 0.5; Lymphocytes % 10.9; MCH 31.9 pg (27.0-33.0); MCHC 33.6 % (32.0-36.0); MCV 95.2 fL (80-95); MPV 10.8 fL (8.0-11.0); Monocytes % 8.9; Neutrophils % 74.3; Nucleated RBC 0 %; Platelet Count 231 10^3/uL (130-400); RBC 4.79 10^6/uL (4.36-5.78); RDW 14.2 % (11.8-14.1); RDW-SD 49.3 fL; WBC 7.77 10^3/uL (4.4-10.8)
== END 2021-09-16 23:59 | disposition home or self-care (01) ==
LOC: INF 00:34
PROVIDERS: PCP Family Medicine; Visit Provider Internal Medicine
DX: K50.913 Crohn's disease, unspecified, with fistula (principal)
CPT/HCPCS: 36415; 96365; 85025; J3380

== ENCOUNTER 2021-10-12 08:00 | Outpatient (RCR) | payer BC, SELFPAY ==
[2021-10-12 08:25] LABS: Abs Immature Grans 0.02 10^3/uL (0.0-0.06); Absolute Basophil Count 0.02 10^3/uL (0.0-0.2); Absolute Eosinophil Count 0.27 10^3/uL (0.0-0.7); Absolute Lymphocyte Count 0.79 10^3/uL (1.2-3.4); Basophils % 0.3; Eosinophils % 3.6; HCT 43.4 % (40.0-50.0); HGB 14.4 g/dL (13.5-17.5); Immature Grans % 0.3; Lymphocytes % 10.7; MCH 31.7 pg (27.0-33.0); MCHC 33.2 % (32.0-36.0); MCV 95.6 fL (80-95); MPV 11.2 fL (8.0-11.0); Monocytes % 8.1; Nucleated RBC 0 %; Platelet Count 192 10^3/uL (130-400); RBC 4.54 10^6/uL (4.36-5.78); RDW 14.4 % (11.8-14.1); RDW-SD 50.3 fL
[2021-10-12] MEDS: VEDOLIZUMAB 300 MG in Normal Saline 250 ML 500 MG IVPB (08:54)
[2021-10-12] MEDS: Normal Saline Flush 10 ML SYR IVP (08:54)
== END 2021-10-17 23:59 | disposition home or self-care (01) ==
LOC: INF 08:00
PROVIDERS: Internal Medicine Gastroenterology; PCP Family Medicine; Visit Provider Internal Medicine
DX: K50.913 Crohn's disease, unspecified, with fistula (principal)
CPT/HCPCS: 36415; 96365; 85025; J3380

== ENCOUNTER 2021-11-09 00:57 | Outpatient (RCR) | payer BC, SELFPAY ==
[2021-11-09 08:32] LABS: Abs Immature Grans 0.04 10^3/uL (0.0-0.06); Absolute Basophil Count 0.03 10^3/uL (0.0-0.2); Absolute Eosinophil Count 0.24 10^3/uL (0.0-0.7); Absolute Monocyte Count 0.44 10^3/uL (0.1-0.8); Absolute Neutrophil Count 4.56 10^3/uL (1.2-6.7); Basophils % 0.5; Eosinophils % 3.8; HGB 15.5 g/dL (13.5-17.5); Immature Grans % 0.6; Lymphocytes % 15.8; MCH 32.3 pg (27.0-33.0); MCHC 33.7 % (32.0-36.0); MCV 95.8 fL (80-95); MPV 11.2 fL (8.0-11.0); Neutrophils % 72.3; Nucleated RBC 0 %; Platelet Count 190 10^3/uL (130-400); RDW 14.1 % (11.8-14.1); WBC 6.31 10^3/uL (4.4-10.8)
[2021-11-09] MEDS: VEDOLIZUMAB 300 MG in Normal Saline 250 ML 500 MG IVPB (08:56)
[2021-11-09] MEDS: Normal Saline Flush 10 ML SYR IVP (08:56)
== END 2021-11-14 23:59 | disposition home or self-care (01) ==
LOC: INF 00:57
PROVIDERS: Internal Medicine Gastroenterology; PCP Family Medicine; Visit Provider Internal Medicine
DX: K50.912 Crohn's disease, unspecified, with intestinal obstruction (principal); Z79.899 Other long term (current) drug therapy
CPT/HCPCS: 36415; 96365; 99195; 85025; J3380

== ENCOUNTER 2021-11-30 01:26 | Outpatient (CLI) | payer BC, SELFPAY ==
--- NOTE | 2021-11-30 07:33 | DI.US_ITS ---
APPROVED REPORT EXAM: Comprehensive 2D, Doppler, and color-flow Echocardiogram Patient Location: Out-Patient Extender: Ginna Lobo RDCS (AE) Indications: Dyspnea on exertion, SOB Other Information Study Quality: Adequate Conclusion Normal left ventricular wall thickness and chamber size. Estimated ejection fraction is 55 to 60%. Wall motion is normal Normal right ventricular size and systolic function Both atria are normal size There is no structural or hemodynamically significant valvular disease Unable to estimate right ventricular systolic pressure Wall motion Left Ventricle The left ventricle is normal size. The left ventricular systolic function is normal. There is normal left ventricular wall thickness. There is normal LV segmental wall motion. There is no ventricular se ptal defect visualized. LVEF is 57%. Right Ventricle The right ventricle is normal size. The right ventricular systolic function is normal. Atria The left atrium size is normal. The right atrium size is normal. The interatrial septum is intact wit h no evidence for an atrial septal defect. Aortic Valve The aortic valve is normal in structure. Aortic valve is trileaflet. There is no aortic valvular sten osis. Mitral Valve The mitral valve is normal in structure. No evidence of mitral valve stenosis. Trace mitral regurgita tion. Tricuspid Valve The tricuspid valve is normal in structure. There is no tricuspid valve stenosis. Trace tricuspid reg urgitation. Unable to assess PA pressure. Pulmonic Valve The pulmonary valve is normal in structure. There is no pulmonic valvular stenosis. There is no pulmo asia valvular regurgitation. Great Vessels The aortic root is normal in size. The ascending aorta is normal in size. IVC is normal in size and c ollapses >50% with inspiration. Pericardium There is no pericardial effusion. 2D Dimensions IVSD d PLAX 0.85 cm M: 0.6-1.2 LV Vol A2C d MOD 138.8 mL LVPW d PLAX 0.84 cm M: 0.6 - 1.2 LV Vol A4C d MOD 116.5 mL LVID d PLAX 4.86 cm M: 4.2 - 5.8 LA vol/ BSA A2C s A-L 28.9 mL/m2 LVDs 3.35 cm M: 2.5 - 4.0 LA vol/ BSA A4C s A-L 13.4 mL/m2 Ao Root d 2.35 cm M: 3.1 - 3.7 LA Vol/ BSA Biplane s A-L 21.0 mL/m2 RA Area A4C 13.29 cm2 LA Area A4C s MOD 12.89 cm2 RA Vol/ BSA A4C s A-L 13.6 mL/m2 LA Area A2C s MOD 20.16 cm2 Ao Asc Diam d 3.03 cm M: 2.6 - 3.4 LV EF A4C MOD 57.0 % LV EF Teichholz 57.3 % LV EF A2C MOD 55.7 % LVEF (Ferraro's) 56.17 % M: 52 - 72 LV EF Biplane MOD 56.2 % LV Volume 95.37 mL M: 62 - 150 SV 74.45 mL LV Volume Index 42.01 mL/m2 M: 34 - 74 SV Index 32.69 mL/m2 LV Vol Biplane MOD 132.5 mL FS 30.15 % M-Mode TAPSE 2.03 cm (M/F) >1.7 LV Diastology MV E' medial 0.103 (>0.07 m/s) E/A Ratio 1.5 LV E/e MED 9.20 (<14) MV E Vmax 0.95 (0.4-1.3 m/s) MV E' lateral 0.088 (>0.1 m/s) MV A Vmax 0.65 (0.4-1.3 m/s) LV E/e LAT 10.75 (<14) MV E/A Ratio 1.37 MV E/E' medial 9.24 MV E/E' lateral 10.78 Aortic Valve LVOT Area 3.26 cm2 AoV Area Vmax 2.70 cm2 LVOT Vmax 1.25 m/s AoV Area/ BSA (Vmax) 1.19 cm2/m2 LVOT Mean Sanchez. 0.77 m/s BLAS Mean Sanchez. 2.44 cm2 LVOT Peak Grad 6.3 mmHg BLAS Mean Sanchez. Index 1.07 cm2/m2 LVOT Mean Grad 2.9 mmHg LVOT VTI 0.214 m LVOT Diam s 2.00 cm AoV Vmax 1.51 m/s Velocity Ratio 0.82 AoV Mean Sanchez. 1.03 m/s AoV Peak Grad 9.1 mmHg LVOT SV 69.69 mL AoV Mean Grad 4.9 mmHg AoV VTI 0.220 m AoV Area VTI 3.16 cm2 AoV Area/ BSA (VTI) 1.39 cm/m2 Mitral Valve MV DT 208 (160-240 msec) MV PHT 60 msec MV Area PHT 3.64 cm2 MV VTI 0.232 m MV Area VTI 3.01 (4.0-6.0 cm2) Pulmonary Valve PV Vmax 1.57 (0.5-1.5 m/s) RVOT Peak Gr. 3.21 mmHg PV Peak Grad 9.9 mmHg RVOT Mean Gr. 1.55 mmHg PV Mean Grad 4.6 mmHg RVOT VTI 0.138 m PV VTI 0.245 m RVOT Vmax 0.90 m/s
== END 2021-11-30 01:46 ==
PROVIDERS: PCP Family Medicine; Visit Provider Student in an Organized Health Care Education/Training Program
DX: R06.02 Shortness of breath; R06.09 Other forms of dyspnea
CPT/HCPCS: 93306

== ENCOUNTER 2021-12-07 01:25 | Outpatient (RCR) | payer BC, SELFPAY ==
[2021-12-07] MEDS: VEDOLIZUMAB 300 MG in Normal Saline 250 ML 500 MG IVPB (08:40)
[2021-12-07] MEDS: Normal Saline Flush 10 ML SYR IVP (08:41)
[2021-12-07 09:53] LABS: Abs Immature Grans 0.04 10^3/uL (0.0-0.06); Absolute Basophil Count 0.03 10^3/uL (0.0-0.2); Absolute Eosinophil Count 0.25 10^3/uL (0.0-0.7); Absolute Lymphocyte Count 0.85 10^3/uL (1.2-3.4); Absolute Monocyte Count 0.56 10^3/uL (0.1-0.8); Absolute Neutrophil Count 4.94 10^3/uL (1.2-6.7); Basophils % 0.4; Eosinophils % 3.7; HCT 44.1 % (40.0-50.0); HGB 14.5 g/dL (13.5-17.5); Immature Grans % 0.6; Lymphocytes % 12.7; MCH 31.5 pg (27.0-33.0); MCHC 32.9 % (32.0-36.0); MCV 95.7 fL (80-95); MPV 10.9 fL (8.0-11.0); Monocytes % 8.4; Neutrophils % 74.2; Nucleated RBC 0 %; Platelet Count 175 10^3/uL (130-400); RBC 4.61 10^6/uL (4.36-5.78); RDW 14.3 % (11.8-14.1); RDW-SD 50.2 fL; WBC 6.67 10^3/uL (4.4-10.8)
== END 2021-12-15 23:59 | disposition home or self-care (01) ==
LOC: INF 01:25
PROVIDERS: Internal Medicine Gastroenterology; PCP Family Medicine; Visit Provider Internal Medicine
DX: K50.913 Crohn's disease, unspecified, with fistula (principal); K50.912 Crohn's disease, unspecified, with intestinal obstruction
CPT/HCPCS: 36415; 96365; 85025; J3380

== ENCOUNTER 2022-01-04 02:16 | Outpatient (RCR) | payer BC, SELFPAY ==
[2022-01-04] MEDS: Normal Saline Flush 10 ML SYR IVP (08:25)
[2022-01-04 08:36] LABS: Abs Immature Grans 0.04 10^3/uL (0.0-0.06); Absolute Basophil Count 0.02 10^3/uL (0.0-0.2); Absolute Eosinophil Count 0.22 10^3/uL (0.0-0.7); Absolute Lymphocyte Count 0.84 10^3/uL (1.2-3.4); Absolute Monocyte Count 0.54 10^3/uL (0.1-0.8); Absolute Neutrophil Count 5.35 10^3/uL (1.2-6.7); Basophils % 0.3; Eosinophils % 3.1; HCT 46.1 % (40.0-50.0); HGB 15.5 g/dL (13.5-17.5); Immature Grans % 0.6; MCH 31.9 pg (27.0-33.0); MCHC 33.6 % (32.0-36.0); MCV 94.9 fL (80-95); MPV 11.4 fL (8.0-11.0); Monocytes % 7.7; Neutrophils % 76.3; Platelet Count 203 10^3/uL (130-400); RBC 4.86 10^6/uL (4.36-5.78); RDW 14.1 % (11.8-14.1); RDW-SD 49.1 fL; WBC 7.01 10^3/uL (4.4-10.8)
[2022-01-04] MEDS: VEDOLIZUMAB 300 MG in Normal Saline 250 ML 500 MG IVPB (09:01)
== END 2022-01-14 23:59 | disposition home or self-care (01) ==
LOC: INF 02:16
PROVIDERS: Internal Medicine Gastroenterology; PCP Nurse Practitioner Family; Visit Provider Internal Medicine
DX: K50.912 Crohn's disease, unspecified, with intestinal obstruction (principal); Z51.81 Encounter for therapeutic drug level monitoring
CPT/HCPCS: 36415; 96365; 85025; J3380

== ENCOUNTER 2022-01-24 01:56 | Outpatient (CLI) | payer BC, SELFPAY ==
[2022-01-24 07:58] LABS: HCT 48.3 % (40.0-50.0); HGB 15.9 g/dL (13.5-17.5); MCHC 32.9 % (32.0-36.0); MCV 94 fL (80-95); MPV 11.1 fL (8.0-11.0); Platelet Count 196 10^3/uL (130-400); RBC 5.13 10^6/uL (4.36-5.78); RDW 14.2 % (11.8-14.1); RDW-SD 49.1 fL; WBC 7.33 10^3/uL (4.4-10.8)
[2022-01-24 08:04] LABS: ESR 20 mm/hr (0-15)
[2022-01-24 08:56] LABS: ALT 50 U/L (16-63); AST 30 U/L (15-37); Alkaline Phosphatase 70 U/L (46-116); Anion Gap 9.2 mmol/L (3-11); BUN 17 mg/dL (7-18); Bilirubin, Total 0.4 mg/dL (0.2-1.0); CO2 28.8 mmol/L (21.0-32.0); Calcium 9.2 mg/dL (8.5-10.1); Calculated LDL 98 mg/dL (<100); Chloride 105 mmol/L (98-107); Cholesterol 161 mg/dL (<200); Glucose 100 mg/dL (74-106); HDL Cholesterol 42 mg/dL (40-60); Potassium 4.6 mmol/L (3.5-5.1); Sodium 143 mmol/L (136-145); Total Protein 8.6 g/dL (6.4-8.2); Triglyceride 108 mg/dL (<150); Vitamin B12 1184 pg/mL (193-986)
[2022-01-24 09:04] LABS: C-Reactive Protein 0.58 mg/dL (0.0-0.3)
[2022-01-24 09:53] LABS: Prothrombin Time 9.9 sec (9.3-11.0)
[2022-01-25 10:59] LABS: Hepatitis C Ab w Rflx HCV PCR Negative (Negative)
[2022-01-25 11:25] LABS: HIV-1/2 Ag & Ab Screen Negative (Negative)
[2022-01-26 05:17] LABS: Vitamin D 25 Total 43.5 ng/mL (30-100)
== END 2022-01-24 01:57 | disposition home or self-care (01) ==
LOC: LBO 01:56
PROVIDERS: PCP Nurse Practitioner Family; Visit Provider Family Medicine
DX: K50.90 Crohn's disease, unspecified, without complications (principal); I10 Essential (primary) hypertension; R79.89 Other specified abnormal findings of blood chemistry; Z13.6 Encounter for screening for cardiovascular disorders; Z11.59 Encounter for screening for other viral diseases; Z11.4 Encounter for screening for human immunodeficiency virus [HIV]
CPT/HCPCS: 36415; 80053; 80061; 82306; 85027; 85652; 86803; 87389; 82607; 85610; 86140

== ENCOUNTER 2022-02-01 02:04 | Outpatient (RCR) | payer BC, SELFPAY ==
[2022-02-01] MEDS: Normal Saline Flush 10 ML SYR IVP (08:39)
[2022-02-01] MEDS: VEDOLIZUMAB 300 MG in Normal Saline 250 ML 500 MG IVPB (08:39)
[2022-02-01 08:51] LABS: Abs Immature Grans 0.02 10^3/uL (0.0-0.06); Absolute Basophil Count 0.02 10^3/uL (0.0-0.2); Absolute Lymphocyte Count 0.87 10^3/uL (1.2-3.4); Absolute Monocyte Count 0.49 10^3/uL (0.1-0.8); Absolute Neutrophil Count 4.98 10^3/uL (1.2-6.7); Basophils % 0.3; HCT 45.4 % (40.0-50.0); HGB 15.3 g/dL (13.5-17.5); Immature Grans % 0.3; Lymphocytes % 13.2; MCH 32.5 pg (27.0-33.0); MCHC 33.7 % (32.0-36.0); MCV 96 fL (80-95); MPV 10.8 fL (8.0-11.0); Monocytes % 7.4; Neutrophils % 75.8; Platelet Count 185 10^3/uL (130-400); RBC 4.71 10^6/uL (4.36-5.78); RDW 14.6 % (11.8-14.1); RDW-SD 51.1 fL; WBC 6.58 10^3/uL (4.4-10.8)
== END 2022-02-14 23:59 | disposition home or self-care (01) ==
LOC: INF 02:04
PROVIDERS: Internal Medicine Gastroenterology; PCP Nurse Practitioner Family; Visit Provider Internal Medicine
DX: K50.913 Crohn's disease, unspecified, with fistula (principal)
CPT/HCPCS: 36415; 96365; 85025; J3380

== ENCOUNTER 2022-03-08 01:45 | Outpatient (RCR) | payer BC, SELFPAY ==
[2022-03-08 08:47] LABS: Abs Immature Grans 0.04 10^3/uL (0.0-0.06); Absolute Basophil Count 0.02 10^3/uL (0.0-0.2); Absolute Eosinophil Count 0.23 10^3/uL (0.0-0.7); Absolute Lymphocyte Count 0.96 10^3/uL (1.2-3.4); Absolute Neutrophil Count 5.29 10^3/uL (1.2-6.7); Basophils % 0.3; Eosinophils % 3.2; HCT 46.2 % (40.0-50.0); HGB 15.6 g/dL (13.5-17.5); Immature Grans % 0.6; Lymphocytes % 13.4; MCH 31.8 pg (27.0-33.0); MCHC 33.8 % (32.0-36.0); MCV 94 fL (80-95); MPV 11.3 fL (8.0-11.0); Monocytes % 8.4; Neutrophils % 74.1; Platelet Count 205 10^3/uL (130-400); RBC 4.91 10^6/uL (4.36-5.78); RDW 14.2 % (11.8-14.1); RDW-SD 48.5 fL; WBC 7.14 10^3/uL (4.4-10.8)
[2022-03-08] MEDS: VEDOLIZUMAB 300 MG in Normal Saline 250 ML 500 MG IVPB (08:50)
[2022-03-08] MEDS: Normal Saline Flush 10 ML SYR IVP (08:51)
== END 2022-03-16 23:59 | disposition home or self-care (01) ==
LOC: INF 01:45
PROVIDERS: Internal Medicine Gastroenterology; PCP Nurse Practitioner Family; Visit Provider Internal Medicine
DX: K50.912 Crohn's disease, unspecified, with intestinal obstruction (principal); Z51.81 Encounter for therapeutic drug level monitoring
CPT/HCPCS: 96365; 85025; J3380

== ENCOUNTER 2022-04-05 01:05 | Outpatient (RCR) | payer BC, SELFPAY ==
[2022-04-05 08:30] LABS: Abs Immature Grans 0.02 10^3/uL (0.0-0.06); Absolute Basophil Count 0.01 10^3/uL (0.0-0.2); Absolute Eosinophil Count 0.27 10^3/uL (0.0-0.7); Absolute Lymphocyte Count 0.79 10^3/uL (1.2-3.4); Absolute Monocyte Count 0.59 10^3/uL (0.1-0.8); Basophils % 0.1; HCT 45.2 % (40.0-50.0); HGB 15.3 g/dL (13.5-17.5); Immature Grans % 0.3; Lymphocytes % 11.7; MCH 31.7 pg (27.0-33.0); MCHC 33.8 % (32.0-36.0); MCV 94 fL (80-95); MPV 10.7 fL (8.0-11.0); Monocytes % 8.7; Neutrophils % 75.2; Platelet Count 201 10^3/uL (130-400); RBC 4.83 10^6/uL (4.36-5.78); RDW 13.8 % (11.8-14.1); RDW-SD 46.9 fL; WBC 6.78 10^3/uL (4.4-10.8)
[2022-04-05] MEDS: VEDOLIZUMAB 300 MG in Normal Saline 250 ML 500 MG IVPB (08:44)
[2022-04-05] MEDS: Normal Saline Flush 10 ML SYR IVP (08:50)
== END 2022-04-16 23:59 | disposition home or self-care (01) ==
LOC: INF 01:05
PROVIDERS: PCP Nurse Practitioner Family; Visit Provider Internal Medicine
DX: K50.912 Crohn's disease, unspecified, with intestinal obstruction (principal); Z51.81 Encounter for therapeutic drug level monitoring
CPT/HCPCS: 96365; 85025; J3380

== ENCOUNTER 2022-05-03 02:06 | Outpatient (RCR) | payer BC, SELFPAY ==
[2022-05-03] MEDS: Normal Saline Flush 10 ML SYR IVP (08:15)
[2022-05-03 08:31] LABS: Abs Immature Grans 0.04 10^3/uL (0.0-0.06); Absolute Basophil Count 0.02 10^3/uL (0.0-0.2); Absolute Eosinophil Count 0.24 10^3/uL (0.0-0.7); Absolute Lymphocyte Count 0.86 10^3/uL (1.2-3.4); Absolute Monocyte Count 0.48 10^3/uL (0.1-0.8); Basophils % 0.3; Eosinophils % 3.8; HCT 45.6 % (40.0-50.0); HGB 15.6 g/dL (13.5-17.5); Immature Grans % 0.6; Lymphocytes % 13.6; MCH 32.3 pg (27.0-33.0); MCHC 34.2 % (32.0-36.0); MCV 94 fL (80-95); MPV 11.3 fL (8.0-11.0); Monocytes % 7.6; Neutrophils % 74.1; Platelet Count 179 10^3/uL (130-400); RBC 4.83 10^6/uL (4.36-5.78); RDW 14.1 % (11.8-14.1); RDW-SD 48.6 fL; WBC 6.34 10^3/uL (4.4-10.8)
[2022-05-03] MEDS: VEDOLIZUMAB 300 MG in Normal Saline 250 ML 500 MG IVPB (08:45)
== END 2022-05-17 23:59 | disposition home or self-care (01) ==
LOC: INF 02:06
PROVIDERS: PCP Nurse Practitioner Family; Visit Provider Internal Medicine
DX: K50.912 Crohn's disease, unspecified, with intestinal obstruction (principal); Z51.81 Encounter for therapeutic drug level monitoring
CPT/HCPCS: 36415; 96365; 85025; J3380

== ENCOUNTER 2022-05-31 01:33 | Outpatient (RCR) | payer BC, SELFPAY ==
[2022-05-31 08:23] LABS: Abs Immature Grans 0.02 10^3/uL (0.0-0.06); Absolute Basophil Count 0.02 10^3/uL (0.0-0.2); Absolute Eosinophil Count 0.29 10^3/uL (0.0-0.7); Absolute Lymphocyte Count 0.79 10^3/uL (1.2-3.4); Absolute Monocyte Count 0.61 10^3/uL (0.1-0.8); Absolute Neutrophil Count 5.06 10^3/uL (1.2-6.7); Basophils % 0.3; Eosinophils % 4.3; HGB 15.1 g/dL (13.5-17.5); Immature Grans % 0.3; Lymphocytes % 11.6; MCH 32.3 pg (27.0-33.0); MCHC 35.1 % (32.0-36.0); MCV 92 fL (80-95); MPV 10.7 fL (8.0-11.0); Neutrophils % 74.5; Platelet Count 203 10^3/uL (130-400); RBC 4.68 10^6/uL (4.36-5.78); RDW 13.8 % (11.8-14.1); RDW-SD 46.7 fL; WBC 6.79 10^3/uL (4.4-10.8)
[2022-05-31] MEDS: Normal Saline Flush 10 ML SYR IVP (08:24)
[2022-05-31] MEDS: VEDOLIZUMAB 300 MG in Normal Saline 250 ML 500 MG IVPB (08:52)
== END 2022-06-16 23:59 | disposition home or self-care (01) ==
LOC: INF 01:33
PROVIDERS: Internal Medicine Gastroenterology; PCP Nurse Practitioner Family; Visit Provider Internal Medicine
DX: K50.912 Crohn's disease, unspecified, with intestinal obstruction (principal); Z51.81 Encounter for therapeutic drug level monitoring
CPT/HCPCS: 36415; 96365; 85025; J3380

== ENCOUNTER 2022-06-28 02:07 | Outpatient (RCR) | payer BC, SELFPAY ==
[2022-06-28] MEDS: Normal Saline Flush 10 ML SYR IVP (08:19)
[2022-06-28 08:34] LABS: Abs Immature Grans 0.03 10^3/uL (0.0-0.06); Absolute Basophil Count 0.03 10^3/uL (0.0-0.2); Absolute Eosinophil Count 0.29 10^3/uL (0.0-0.7); Absolute Lymphocyte Count 0.75 10^3/uL (1.2-3.4); Absolute Monocyte Count 0.66 10^3/uL (0.1-0.8); Absolute Neutrophil Count 5.59 10^3/uL (1.2-6.7); Basophils % 0.4; Eosinophils % 3.9; HCT 48.7 % (40.0-50.0); HGB 16.1 g/dL (13.5-17.5); Immature Grans % 0.4; Lymphocytes % 10.2; MCH 31.6 pg (27.0-33.0); MCHC 33.1 % (32.0-36.0); MCV 96 fL (80-95); MPV 10.9 fL (8.0-11.0); Neutrophils % 76.1; Platelet Count 228 10^3/uL (130-400); RBC 5.09 10^6/uL (4.36-5.78); RDW-SD 49.2 fL; WBC 7.35 10^3/uL (4.4-10.8)
[2022-06-28] MEDS: VEDOLIZUMAB 300 MG in Normal Saline 250 ML 500 MG IVPB (08:59)
== END 2022-07-17 23:59 | disposition home or self-care (01) ==
LOC: INF 02:07
PROVIDERS: Internal Medicine Gastroenterology; PCP Nurse Practitioner Family; Visit Provider Internal Medicine
DX: K50.912 Crohn's disease, unspecified, with intestinal obstruction (principal); Z51.81 Encounter for therapeutic drug level monitoring
CPT/HCPCS: 36415; 96365; 85025; J3380

== ENCOUNTER 2022-07-26 02:55 | Outpatient (RCR) | payer BC, SELFPAY ==
[2022-07-26] MEDS: Normal Saline Flush 10 ML SYR IVP (08:40)
[2022-07-26] MEDS: VEDOLIZUMAB 300 MG in Normal Saline 250 ML 500 MG IVPB (08:40)
[2022-07-26 08:45] LABS: Abs Immature Grans 0.04 10^3/uL (0.0-0.06); Absolute Basophil Count 0.03 10^3/uL (0.0-0.2); Absolute Eosinophil Count 0.27 10^3/uL (0.0-0.7); Absolute Lymphocyte Count 0.79 10^3/uL (1.2-3.4); Absolute Monocyte Count 0.67 10^3/uL (0.1-0.8); Absolute Neutrophil Count 5.68 10^3/uL (1.2-6.7); Basophils % 0.4; Eosinophils % 3.6; HCT 46.4 % (40.0-50.0); HGB 15.8 g/dL (13.5-17.5); Immature Grans % 0.5; Lymphocytes % 10.6; MCH 31.6 pg (27.0-33.0); MCHC 34.1 % (32.0-36.0); MCV 93 fL (80-95); MPV 10.9 fL (8.0-11.0); Neutrophils % 75.9; Platelet Count 212 10^3/uL (130-400); RDW 14.1 % (11.8-14.1); RDW-SD 47.9 fL; WBC 7.48 10^3/uL (4.4-10.8)
== END 2022-08-16 23:59 | disposition home or self-care (01) ==
LOC: INF 02:55
PROVIDERS: Internal Medicine Gastroenterology; PCP Nurse Practitioner Family; Visit Provider Internal Medicine
DX: K50.912 Crohn's disease, unspecified, with intestinal obstruction (principal); Z51.81 Encounter for therapeutic drug level monitoring
CPT/HCPCS: 36415; 96365; 85025; J3380

== ENCOUNTER 2022-08-23 03:14 | Outpatient (RCR) | payer BC, SELFPAY ==
[2022-08-23] MEDS: Normal Saline Flush 10 ML SYR IVP (08:28)
[2022-08-23 08:41] LABS: Abs Immature Grans 0.03 10^3/uL (0.0-0.06); Absolute Basophil Count 0.03 10^3/uL (0.0-0.2); Absolute Eosinophil Count 0.28 10^3/uL (0.0-0.7); Absolute Lymphocyte Count 0.78 10^3/uL (1.2-3.4); Absolute Monocyte Count 0.65 10^3/uL (0.1-0.8); Absolute Neutrophil Count 5.58 10^3/uL (1.2-6.7); Basophils % 0.4; Eosinophils % 3.8; HCT 46.5 % (40.0-50.0); HGB 15.5 g/dL (13.5-17.5); Immature Grans % 0.4; Lymphocytes % 10.6; MCH 31.2 pg (27.0-33.0); MCHC 33.3 % (32.0-36.0); MCV 94 fL (80-95); MPV 11.1 fL (8.0-11.0); Monocytes % 8.8; Platelet Count 202 10^3/uL (130-400); RBC 4.97 10^6/uL (4.36-5.78); RDW 14.1 % (11.8-14.1); RDW-SD 48.6 fL; WBC 7.35 10^3/uL (4.4-10.8)
[2022-08-23] MEDS: VEDOLIZUMAB 300 MG in Normal Saline 250 ML 500 MG IVPB (08:41)
== END 2022-09-16 23:59 | disposition home or self-care (01) ==
LOC: INF 03:14
PROVIDERS: PCP Nurse Practitioner Family; Visit Provider Internal Medicine
DX: K50.912 Crohn's disease, unspecified, with intestinal obstruction (principal); Z51.81 Encounter for therapeutic drug level monitoring; K50.913 Crohn's disease, unspecified, with fistula
CPT/HCPCS: 96365; 85025; J3380

== ENCOUNTER 2022-09-20 04:21 | Outpatient (RCR) | payer BC, SELFPAY ==
[2022-09-20] MEDS: Normal Saline Flush 10 ML SYR IVP (08:02)
[2022-09-20 08:13] LABS: Abs Immature Grans 0.02 10^3/uL (0.0-0.06); Absolute Basophil Count 0.01 10^3/uL (0.0-0.2); Absolute Eosinophil Count 0.24 10^3/uL (0.0-0.7); Absolute Lymphocyte Count 0.77 10^3/uL (1.2-3.4); Absolute Monocyte Count 0.44 10^3/uL (0.1-0.8); Absolute Neutrophil Count 4.55 10^3/uL (1.2-6.7); Basophils % 0.2; HCT 48.7 % (40.0-50.0); HGB 16.4 g/dL (13.5-17.5); Immature Grans % 0.3; Lymphocytes % 12.8; MCH 31.2 pg (27.0-33.0); MCHC 33.7 % (32.0-36.0); MCV 93 fL (80-95); MPV 10.7 fL (8.0-11.0); Monocytes % 7.3; Neutrophils % 75.4; Platelet Count 211 10^3/uL (130-400); RBC 5.25 10^6/uL (4.36-5.78); RDW 13.8 % (11.8-14.1); RDW-SD 47.1 fL; WBC 6.03 10^3/uL (4.4-10.8)
[2022-09-20] MEDS: VEDOLIZUMAB 300 MG in Normal Saline 250 ML 500 MG IVPB (08:16)
== END 2022-10-17 23:59 | disposition home or self-care (01) ==
LOC: INF 04:21
PROVIDERS: Internal Medicine Gastroenterology; PCP Nurse Practitioner Family; Visit Provider Internal Medicine
DX: K50.912 Crohn's disease, unspecified, with intestinal obstruction (principal); Z51.81 Encounter for therapeutic drug level monitoring
CPT/HCPCS: 36415; 96365; 85025; J3380

== ENCOUNTER 2022-10-18 03:40 | Outpatient (RCR) | payer BC, SELFPAY ==
[2022-10-18] MEDS: Normal Saline Flush 10 ML SYR IVP (08:20)
[2022-10-18] MEDS: VEDOLIZUMAB 300 MG in Normal Saline 250 ML 500 MG IVPB (08:27)
[2022-10-18 08:51] LABS: Abs Immature Grans 0.04 10^3/uL (0.0-0.06); Absolute Basophil Count 0.02 10^3/uL (0.0-0.2); Absolute Eosinophil Count 0.24 10^3/uL (0.0-0.7); Absolute Lymphocyte Count 0.76 10^3/uL (1.2-3.4); Absolute Monocyte Count 0.59 10^3/uL (0.1-0.8); Absolute Neutrophil Count 4.89 10^3/uL (1.2-6.7); Basophils % 0.3; Eosinophils % 3.7; HCT 47.5 % (40.0-50.0); Immature Grans % 0.6; Lymphocytes % 11.6; MCH 31.3 pg (27.0-33.0); MCHC 33.7 % (32.0-36.0); MCV 93 fL (80-95); MPV 11.6 fL (8.0-11.0); Neutrophils % 74.8; Platelet Count 212 10^3/uL (130-400); RBC 5.11 10^6/uL (4.36-5.78); RDW 13.6 % (11.8-14.1); RDW-SD 46.4 fL; WBC 6.54 10^3/uL (4.4-10.8)
== END 2022-11-14 23:59 | disposition home or self-care (01) ==
LOC: INF 03:40
PROVIDERS: Internal Medicine Gastroenterology; PCP Nurse Practitioner Family; Visit Provider Internal Medicine
DX: K50.913 Crohn's disease, unspecified, with fistula; Z51.89 Encounter for other specified aftercare; Z45.2 Encounter for adjustment and management of vascular access device
CPT/HCPCS: 36415; 36591; 96365; 85025; J3380

== ENCOUNTER 2022-10-30 13:33 | Outpatient (CLI) | payer BC, SELFPAY ==
[2022-10-30 15:13] LABS: ESR 20 mm/hr (0-15)
[2022-10-30 15:35] LABS: Prothrombin Time 10.5 sec (9.3-11.0)
[2022-10-30 16:07] LABS: ALT 39 U/L (16-63); AST 29 U/L (15-37); Albumin 3.8 g/dL (3.4-5.0); Alkaline Phosphatase 64 U/L (46-116); Anion Gap 7.4 mmol/L (3-11); BUN 21 mg/dL (7-18); Bilirubin, Direct 0.1 mg/dL (0.0-0.2); Bilirubin, Total 0.3 mg/dL (0.2-1.0); C-Reactive Protein 0.45 mg/dL (0.0-0.3); CO2 29.6 mmol/L (21.0-32.0); Calcium 9.5 mg/dL (8.5-10.1); Chloride 102 mmol/L (98-107); Estimated GFR 92.26 (mL/min/1.73m2); GGT 34 U/L (15-85); Glucose 120 mg/dL (74-106); Sodium 139 mmol/L (136-145); Total Protein 8.2 g/dL (6.4-8.2)
[2022-10-30 16:23] LABS: Iron 70 ug/dL (65-175); Total Iron Binding Capacity 321 ug/dL (250-450); Transferrin Sat 22 % (20-55)
[2022-10-30 17:02] LABS: Ferritin 44 ng/mL (26-388); Vitamin B12 1016 pg/mL (193-986)
[2022-11-01 12:46] LABS: Zinc, S 63 mcg/dL (60-106)
[2022-11-02 09:32] LABS: 6-Thioguanine Nucleotides 116 (235 - 450)
== END 2022-10-30 13:34 | disposition home or self-care (01) ==
LOC: LBO 13:34
PROVIDERS: PCP Nurse Practitioner Family; Visit Provider Internal Medicine Gastroenterology
DX: K50.912 Crohn's disease, unspecified, with intestinal obstruction (principal); K50.913 Crohn's disease, unspecified, with fistula; K50.918 Crohn's disease, unspecified, with other complication
CPT/HCPCS: 36415; 80048; 80076; 80299; 84630; 85652; 82607; 82728; 82977; 83540; 83550; 85610; 86140

== ENCOUNTER 2022-10-31 07:29 | Outpatient (REF) | payer BC, SELFPAY ==
[2022-11-03 11:10] LABS: Calprotectin 179 mcg/g
[2022-11-08 19:25] LABS: Lactoferrin, Qt, Stool 31.94 mcg/mL (<7.25)
== END 2022-10-31 07:30 | disposition home or self-care (01) ==
LOC: LBO 07:29
PROVIDERS: PCP Nurse Practitioner Family; Visit Provider Internal Medicine Gastroenterology
DX: K50.912 Crohn's disease, unspecified, with intestinal obstruction (principal); K50.913 Crohn's disease, unspecified, with fistula
CPT/HCPCS: 83631; 83993

== ENCOUNTER 2022-12-13 01:42 | Outpatient (RCR) | payer BC, SELFPAY ==
[2022-11-15] MEDS: Normal Saline Flush 10 ML SYR IVP (08:32)
[2022-11-15 08:39] LABS: Abs Immature Grans 0.03 10^3/uL (0.0-0.06); Absolute Basophil Count 0.01 10^3/uL (0.0-0.2); Absolute Eosinophil Count 0.28 10^3/uL (0.0-0.7); Absolute Lymphocyte Count 0.75 10^3/uL (1.2-3.4); Absolute Monocyte Count 0.64 10^3/uL (0.1-0.8); Absolute Neutrophil Count 4.51 10^3/uL (1.2-6.7); Basophils % 0.2; Eosinophils % 4.5; HCT 45.2 % (40.0-50.0); HGB 15.3 g/dL (13.5-17.5); Immature Grans % 0.5; Lymphocytes % 12.1; MCH 31.3 pg (27.0-33.0); MCHC 33.8 % (32.0-36.0); MCV 92 fL (80-95); MPV 11.2 fL (8.0-11.0); Monocytes % 10.3; Neutrophils % 72.4; Platelet Count 179 10^3/uL (130-400); RBC 4.89 10^6/uL (4.36-5.78); RDW 13.7 % (11.8-14.1); RDW-SD 46.7 fL; WBC 6.22 10^3/uL (4.4-10.8)
[2022-11-15] MEDS: VEDOLIZUMAB 300 MG in Normal Saline 250 ML 500 MG IVPB (08:58)
[2022-12-13] MEDS: Normal Saline Flush 10 ML SYR IVP (08:39)
[2022-12-13 08:46] LABS: Abs Immature Grans 0.03 10^3/uL (0.0-0.06); Absolute Basophil Count 0.02 10^3/uL (0.0-0.2); Absolute Eosinophil Count 0.28 10^3/uL (0.0-0.7); Absolute Lymphocyte Count 0.76 10^3/uL (1.2-3.4); Absolute Monocyte Count 0.51 10^3/uL (0.1-0.8); Absolute Neutrophil Count 3.76 10^3/uL (1.2-6.7); Basophils % 0.4; Eosinophils % 5.2; HCT 47.7 % (40.0-50.0); HGB 16.2 g/dL (13.5-17.5); Immature Grans % 0.6; Lymphocytes % 14.2; MCH 31.3 pg (27.0-33.0); MCV 92 fL (80-95); Monocytes % 9.5; Neutrophils % 70.1; Platelet Count 179 10^3/uL (130-400); RBC 5.18 10^6/uL (4.36-5.78); RDW 14.1 % (11.8-14.1); RDW-SD 47.2 fL; WBC 5.36 10^3/uL (4.4-10.8)
[2022-12-13] MEDS: VEDOLIZUMAB 300 MG in Normal Saline 250 ML 500 MG IVPB (08:55)
== END 2022-12-15 23:59 | disposition home or self-care (01) ==
LOC: INF 01:42
PROVIDERS: Internal Medicine Gastroenterology; PCP Nurse Practitioner Family; Visit Provider Internal Medicine
DX: K50.912 Crohn's disease, unspecified, with intestinal obstruction (principal); K50.913 Crohn's disease, unspecified, with fistula; Z51.81 Encounter for therapeutic drug level monitoring
CPT/HCPCS: 36415; 96365; 85025; J3380

== ENCOUNTER 2023-01-04 07:42 | Outpatient (REF) | payer BC, SELFPAY ==
[2023-01-06 17:36] LABS: Calprotectin 327 mcg/g
== END 2023-01-04 07:43 | disposition home or self-care (01) ==
LOC: LBN 07:42
PROVIDERS: PCP Nurse Practitioner Family; Visit Provider Internal Medicine Gastroenterology
DX: K50.912 Crohn's disease, unspecified, with intestinal obstruction (principal); K50.913 Crohn's disease, unspecified, with fistula
CPT/HCPCS: 83631; 83993

== ENCOUNTER 2023-01-10 02:43 | Outpatient (RCR) | payer BC, SELFPAY ==
[2023-01-10 08:39] LABS: Abs Immature Grans 0.04 10^3/uL (0.0-0.06); Absolute Basophil Count 0.02 10^3/uL (0.0-0.2); Absolute Eosinophil Count 0.29 10^3/uL (0.0-0.7); Absolute Lymphocyte Count 0.86 10^3/uL (1.2-3.4); Absolute Monocyte Count 0.47 10^3/uL (0.1-0.8); Absolute Neutrophil Count 3.82 10^3/uL (1.2-6.7); Basophils % 0.4; Eosinophils % 5.3; HGB 15.8 g/dL (13.5-17.5); Immature Grans % 0.7; Lymphocytes % 15.6; MCH 31.6 pg (27.0-33.0); MCHC 34.3 % (32.0-36.0); MCV 92 fL (80-95); Monocytes % 8.5; Neutrophils % 69.5; Platelet Count 202 10^3/uL (130-400); RDW 14.7 % (11.8-14.1); RDW-SD 49.6 fL
[2023-01-10] MEDS: VEDOLIZUMAB 300 MG in Normal Saline 250 ML 500 MG IVPB (08:52)
[2023-01-10] MEDS: Normal Saline Flush 10 ML SYR IVP (08:53)
== END 2023-01-14 23:59 | disposition home or self-care (01) ==
LOC: INF 02:43
PROVIDERS: Internal Medicine Gastroenterology; PCP Nurse Practitioner Family; Visit Provider Internal Medicine
DX: K50.912 Crohn's disease, unspecified, with intestinal obstruction (principal); K50.913 Crohn's disease, unspecified, with fistula; Z51.89 Encounter for other specified aftercare
CPT/HCPCS: 96365; 85025; J3380

== ENCOUNTER 2023-02-07 04:13 | Outpatient (RCR) | payer BC, SELFPAY ==
[2023-02-07 08:56] LABS: Abs Immature Grans 0.02 10^3/uL (0.0-0.06); Absolute Basophil Count 0.01 10^3/uL (0.0-0.2); Absolute Eosinophil Count 0.27 10^3/uL (0.0-0.7); Absolute Lymphocyte Count 0.73 10^3/uL (1.2-3.4); Absolute Monocyte Count 0.51 10^3/uL (0.1-0.8); Absolute Neutrophil Count 4.54 10^3/uL (1.2-6.7); Basophils % 0.2; Eosinophils % 4.4; HCT 45.9 % (40.0-50.0); HGB 15.7 g/dL (13.5-17.5); Immature Grans % 0.3; MCHC 34.2 % (32.0-36.0); MCV 94 fL (80-95); MPV 11.1 fL (8.0-11.0); Monocytes % 8.4; Neutrophils % 74.7; Platelet Count 200 10^3/uL (130-400); RBC 4.91 10^6/uL (4.36-5.78); RDW 14.7 % (11.8-14.1); RDW-SD 50.1 fL; WBC 6.08 10^3/uL (4.4-10.8)
[2023-02-07] MEDS: Normal Saline Flush 10 ML SYR IVP (09:01)
[2023-02-07] MEDS: VEDOLIZUMAB 300 MG in Normal Saline 250 ML 500 MG IVPB (09:01)
[2023-02-07 09:09] LABS: Calculated LDL 71 mg/dL (<100); Cholesterol 151 mg/dL (<200); HDL Cholesterol 40 mg/dL (40-60); Triglyceride 201 mg/dL (<150)
[2023-02-07 09:43] LABS: Hemoglobin A1C 5.5 % (<5.7)
== END 2023-02-14 23:59 | disposition home or self-care (01) ==
LOC: INF 04:13
PROVIDERS: PCP Nurse Practitioner Family; Visit Provider Internal Medicine
DX: K50.912 Crohn's disease, unspecified, with intestinal obstruction (principal); K50.913 Crohn's disease, unspecified, with fistula; Z51.81 Encounter for therapeutic drug level monitoring
CPT/HCPCS: 36415; 80061; 96365; 83036; 85025; J3380

== ENCOUNTER 2023-02-26 11:58 | Outpatient (REF) | payer BC, SELFPAY ==
[2023-03-01 18:04] LABS: Calprotectin 311 mcg/g
[2023-03-07 17:27] LABS: Lactoferrin, Qt, Stool 29.41 mcg/mL (<7.25)
== END 2023-02-26 11:59 | disposition home or self-care (01) ==
LOC: LBN 11:58
PROVIDERS: PCP Nurse Practitioner Family; Visit Provider Internal Medicine Gastroenterology
DX: K50.912 Crohn's disease, unspecified, with intestinal obstruction (principal); K50.913 Crohn's disease, unspecified, with fistula
CPT/HCPCS: 83631; 83993

== ENCOUNTER 2023-03-07 02:21 | Outpatient (RCR) | payer BC, SELFPAY ==
[2023-03-07] MEDS: VEDOLIZUMAB 300 MG in Normal Saline 250 ML 500 MG IVPB (08:38)
[2023-03-07] MEDS: Normal Saline Flush 10 ML SYR IVP (08:38)
[2023-03-07 08:57] LABS: Abs Immature Grans 0.04 10^3/uL (0.0-0.06); Absolute Basophil Count 0.03 10^3/uL (0.0-0.2); Absolute Eosinophil Count 0.24 10^3/uL (0.0-0.7); Absolute Lymphocyte Count 0.89 10^3/uL (1.2-3.4); Absolute Neutrophil Count 4.36 10^3/uL (1.2-6.7); Basophils % 0.5; Eosinophils % 3.9; HCT 46.5 % (40.0-50.0); HGB 15.9 g/dL (13.5-17.5); Immature Grans % 0.6; Lymphocytes % 14.4; MCH 32.3 pg (27.0-33.0); MCHC 34.2 % (32.0-36.0); MCV 95 fL (80-95); MPV 11.4 fL (8.0-11.0); Monocytes % 9.7; Neutrophils % 70.9; Platelet Count 207 10^3/uL (130-400); RBC 4.92 10^6/uL (4.36-5.78); RDW 14.1 % (11.8-14.1); RDW-SD 49.1 fL; WBC 6.16 10^3/uL (4.4-10.8)
== END 2023-03-16 23:59 | disposition home or self-care (01) ==
LOC: INF 02:21
PROVIDERS: Internal Medicine Gastroenterology; PCP Nurse Practitioner Family; Visit Provider Internal Medicine
DX: K50.912 Crohn's disease, unspecified, with intestinal obstruction (principal); K50.913 Crohn's disease, unspecified, with fistula; Z51.89 Encounter for other specified aftercare
CPT/HCPCS: 96365; 85025; J3380

== ENCOUNTER 2023-04-04 03:40 | Outpatient (RCR) | payer BC, SELFPAY ==
[2023-04-04 08:40] LABS: Abs Immature Grans 0.03 10^3/uL (0.0-0.06); Absolute Basophil Count 0.03 10^3/uL (0.0-0.2); Absolute Eosinophil Count 0.36 10^3/uL (0.0-0.7); Absolute Lymphocyte Count 0.77 10^3/uL (1.2-3.4); Absolute Monocyte Count 0.41 10^3/uL (0.1-0.8); Absolute Neutrophil Count 4.41 10^3/uL (1.2-6.7); Basophils % 0.5; HCT 45.2 % (40.0-50.0); HGB 15.5 g/dL (13.5-17.5); Immature Grans % 0.5; Lymphocytes % 12.8; MCH 32.4 pg (27.0-33.0); MCHC 34.3 % (32.0-36.0); MCV 95 fL (80-95); MPV 11.2 fL (8.0-11.0); Monocytes % 6.8; Neutrophils % 73.4; Platelet Count 210 10^3/uL (130-400); RBC 4.78 10^6/uL (4.36-5.78); RDW 14.2 % (11.8-14.1); RDW-SD 49.2 fL; WBC 6.01 10^3/uL (4.4-10.8)
[2023-04-04] MEDS: Normal Saline Flush 10 ML SYR IVP (08:53)
[2023-04-04] MEDS: VEDOLIZUMAB 300 MG in Normal Saline 250 ML 500 MG IVPB (08:53)
== END 2023-04-16 23:59 | disposition home or self-care (01) ==
LOC: INF 03:40
PROVIDERS: PCP Nurse Practitioner Family; Visit Provider Internal Medicine
DX: K50.912 Crohn's disease, unspecified, with intestinal obstruction (principal); K50.913 Crohn's disease, unspecified, with fistula; Z51.81 Encounter for therapeutic drug level monitoring
CPT/HCPCS: 36415; 96365; 85025; J3380

== ENCOUNTER 2023-05-02 02:33 | Outpatient (RCR) | payer BC, SELFPAY ==
[2023-05-02 08:42] LABS: Abs Immature Grans 0.03 10^3/uL (0.0-0.06); Absolute Basophil Count 0.02 10^3/uL (0.0-0.2); Absolute Lymphocyte Count 0.76 10^3/uL (1.2-3.4); Absolute Monocyte Count 0.49 10^3/uL (0.1-0.8); Absolute Neutrophil Count 4.86 10^3/uL (1.2-6.7); Basophils % 0.3; Eosinophils % 3.1; HCT 43.7 % (40.0-50.0); Immature Grans % 0.5; Lymphocytes % 11.9; MCH 32.5 pg (27.0-33.0); MCHC 34.3 % (32.0-36.0); MCV 95 fL (80-95); MPV 10.8 fL (8.0-11.0); Monocytes % 7.7; Neutrophils % 76.5; Platelet Count 179 10^3/uL (130-400); RBC 4.61 10^6/uL (4.36-5.78); RDW 14.5 % (11.8-14.1); RDW-SD 49.6 fL; WBC 6.36 10^3/uL (4.4-10.8)
[2023-05-02] MEDS: VEDOLIZUMAB 300 MG in Normal Saline 250 ML 500 MG IVPB (08:56)
[2023-05-02] MEDS: Normal Saline Flush 10 ML SYR IVP (08:57)
== END 2023-05-17 23:59 | disposition home or self-care (01) ==
LOC: INF 02:33
PROVIDERS: Internal Medicine Gastroenterology; PCP Nurse Practitioner Family; Visit Provider Internal Medicine
DX: K50.912 Crohn's disease, unspecified, with intestinal obstruction (principal); K50.913 Crohn's disease, unspecified, with fistula; Z51.89 Encounter for other specified aftercare
CPT/HCPCS: 36415; 96365; 85025; J3380

== ENCOUNTER 2023-05-30 02:42 | Outpatient (RCR) | payer BC, SELFPAY ==
[2023-05-30] MEDS: Normal Saline Flush 10 ML SYR IVP (08:43)
[2023-05-30] MEDS: VEDOLIZUMAB 300 MG in Normal Saline 250 ML 500 MG IVPB (08:43)
[2023-05-30 08:47] LABS: Abs Immature Grans 0.02 10^3/uL (0.0-0.06); Absolute Basophil Count 0.02 10^3/uL (0.0-0.2); Absolute Eosinophil Count 0.22 10^3/uL (0.0-0.7); Absolute Lymphocyte Count 0.63 10^3/uL (1.2-3.4); Basophils % 0.3; Eosinophils % 3.8; HCT 44.1 % (40.0-50.0); HGB 15.2 g/dL (13.5-17.5); Immature Grans % 0.3; Lymphocytes % 10.9; MCH 32.5 pg (27.0-33.0); MCHC 34.5 % (32.0-36.0); MCV 94 fL (80-95); MPV 10.9 fL (8.0-11.0); Monocytes % 10.4; Neutrophils % 74.3; Platelet Count 211 10^3/uL (130-400); RBC 4.68 10^6/uL (4.36-5.78); RDW 14.4 % (11.8-14.1); RDW-SD 49.7 fL; WBC 5.79 10^3/uL (4.4-10.8)
== END 2023-06-16 23:59 | disposition home or self-care (01) ==
LOC: INF 02:42
PROVIDERS: Internal Medicine Gastroenterology; PCP Nurse Practitioner Family; Visit Provider Internal Medicine
DX: K50.913 Crohn's disease, unspecified, with fistula (principal)
CPT/HCPCS: 36415; 96365; 85025; J3380

== ENCOUNTER 2023-06-27 01:32 | Outpatient (RCR) | payer BC, SELFPAY ==
[2023-06-27] MEDS: Normal Saline Flush 10 ML SYR IVP (08:25)
[2023-06-27] MEDS: VEDOLIZUMAB 300 MG in Normal Saline 250 ML 500 MG IVPB (08:43)
[2023-06-27 08:45] LABS: Abs Immature Grans 0.04 10^3/uL (0.0-0.06); Absolute Basophil Count 0.03 10^3/uL (0.0-0.2); Absolute Eosinophil Count 0.35 10^3/uL (0.0-0.7); Absolute Lymphocyte Count 0.68 10^3/uL (1.2-3.4); Absolute Monocyte Count 0.59 10^3/uL (0.1-0.8); Absolute Neutrophil Count 6.02 10^3/uL (1.2-6.7); Basophils % 0.4; Eosinophils % 4.5; HCT 43.2 % (40.0-50.0); HGB 14.9 g/dL (13.5-17.5); Immature Grans % 0.5; Lymphocytes % 8.8; MCH 32.3 pg (27.0-33.0); MCHC 34.5 % (32.0-36.0); MCV 94 fL (80-95); Monocytes % 7.7; Neutrophils % 78.1; Platelet Count 226 10^3/uL (130-400); RBC 4.61 10^6/uL (4.36-5.78); RDW 14.4 % (11.8-14.1); RDW-SD 48.9 fL; WBC 7.71 10^3/uL (4.4-10.8)
[2023-07-04 14:42] LABS: Vedolizumab Ab <9.8 ng/mL (<9.8); Vedolizumab QN, S 14.9 mcg/mL
== END 2023-07-17 23:59 | disposition home or self-care (01) ==
LOC: INF 01:32
PROVIDERS: PCP Nurse Practitioner Family; Visit Provider Internal Medicine
DX: K50.912 Crohn's disease, unspecified, with intestinal obstruction (principal); K50.913 Crohn's disease, unspecified, with fistula; K92.2 Gastrointestinal hemorrhage, unspecified
CPT/HCPCS: 36415; 82397; 96365; 85025; 86140; J3380

== ENCOUNTER 2023-07-17 11:53 | Outpatient (REF) | payer BC, SELFPAY ==
[2023-07-17 23:03] LABS: Campylobacter PCR Negative (Negative); Salmonella PCR Negative (Negative); Shiga Toxin PCR Negative (Negative); Shigella/Enteroinvasive Ecoli Negative (Negative)
[2023-07-19 21:02] LABS: Calprotectin 228 mcg/g
[2023-07-25 19:28] LABS: Lactoferrin, Qt, Stool 19.68 mcg/mL (<7.25)
== END 2023-07-17 11:54 | disposition home or self-care (01) ==
LOC: LBN 11:53
PROVIDERS: PCP Nurse Practitioner Family; Visit Provider Internal Medicine Gastroenterology
DX: K50.912 Crohn's disease, unspecified, with intestinal obstruction (principal); K92.2 Gastrointestinal hemorrhage, unspecified
CPT/HCPCS: 83631; 87493; 87505; 83993

== ENCOUNTER 2023-07-25 01:09 | Outpatient (RCR) | payer BC, SELFPAY ==
[2023-07-25] MEDS: VEDOLIZUMAB 300 MG in Normal Saline 250 ML 500 MG IVPB (08:55)
[2023-07-25] MEDS: Normal Saline Flush 10 ML SYR IVP (08:55)
[2023-07-25 09:36] LABS: Abs Immature Grans 0.03 10^3/uL (0.0-0.06); Absolute Basophil Count 0.03 10^3/uL (0.0-0.2); Absolute Eosinophil Count 0.26 10^3/uL (0.0-0.7); Absolute Lymphocyte Count 0.79 10^3/uL (1.2-3.4); Absolute Monocyte Count 0.47 10^3/uL (0.1-0.8); Absolute Neutrophil Count 4.34 10^3/uL (1.2-6.7); Basophils % 0.5; Eosinophils % 4.4; HCT 44.1 % (40.0-50.0); HGB 14.8 g/dL (13.5-17.5); Immature Grans % 0.5; Lymphocytes % 13.3; MCH 31.8 pg (27.0-33.0); MCHC 33.6 % (32.0-36.0); MCV 95 fL (80-95); Monocytes % 7.9; Neutrophils % 73.4; Platelet Count 264 10^3/uL (130-400); RBC 4.66 10^6/uL (4.36-5.78); RDW 14.6 % (11.8-14.1); RDW-SD 51.1 fL; WBC 5.92 10^3/uL (4.4-10.8)
== END 2023-08-16 23:59 | disposition home or self-care (01) ==
LOC: INF 01:09
PROVIDERS: Internal Medicine Gastroenterology; PCP Nurse Practitioner Family; Visit Provider Internal Medicine
DX: K50.913 Crohn's disease, unspecified, with fistula (principal); Z79.899 Other long term (current) drug therapy
CPT/HCPCS: 36415; 36591; 96365; 85025; J3380

== ENCOUNTER 2023-08-22 02:33 | Outpatient (RCR) | payer BC, SELFPAY ==
[2023-08-22 09:02] LABS: Abs Immature Grans 0.05 10^3/uL (0.0-0.06); Absolute Basophil Count 0.02 10^3/uL (0.0-0.2); Absolute Eosinophil Count 0.29 10^3/uL (0.0-0.7); Absolute Lymphocyte Count 0.95 10^3/uL (1.2-3.4); Absolute Monocyte Count 0.54 10^3/uL (0.1-0.8); Basophils % 0.3; Eosinophils % 4.5; HGB 15.2 g/dL (13.5-17.5); Immature Grans % 0.8; Lymphocytes % 14.7; MCH 32.8 pg (27.0-33.0); MCHC 34.5 % (32.0-36.0); MCV 95 fL (80-95); MPV 11.4 fL (8.0-11.0); Monocytes % 8.4; Neutrophils % 71.3; Platelet Count 239 10^3/uL (130-400); RBC 4.64 10^6/uL (4.36-5.78); RDW 15.6 % (11.8-14.1); RDW-SD 52.2 fL; WBC 6.45 10^3/uL (4.4-10.8)
[2023-08-22] MEDS: VEDOLIZUMAB 300 MG in Normal Saline 250 ML 500 MG IVPB (09:03)
[2023-08-22] MEDS: Normal Saline Flush 10 ML SYR IVP (09:04)
== END 2023-09-16 23:59 | disposition home or self-care (01) ==
LOC: INF 02:33
PROVIDERS: Internal Medicine Gastroenterology; PCP Nurse Practitioner Family; Visit Provider Internal Medicine
DX: K50.913 Crohn's disease, unspecified, with fistula (principal); K50.912 Crohn's disease, unspecified, with intestinal obstruction; K92.2 Gastrointestinal hemorrhage, unspecified
CPT/HCPCS: 36415; 96365; 85025; J3380

== ENCOUNTER → 2023-09-06 12:38 | Outpatient (CLI) | payer BC, SELFPAY ==
--- NOTE | 2023-09-06 11:00 | DI.RAD_ITS ---
Exam(s) XR LUMBAR SPINE COMPLETE EXAM: XR LUMBAR SPINE COMPLETE CLINICAL HISTORY: M54.50 Worsening low back pain with radiculopathy.. TECHNIQUE: 2D digital imaging was performed of the lumbar spine. Five images were obtained. AP, la teral, right oblique, left oblique and L5-S1 spot views were obtained. COMPARISON: CR ABDOMEN 2 VIEW FLAT, UPRIGHT from 09/02/2012 FINDINGS: BONES: No fracture or destructive lesion. Endplate osteophytes are seen at multiple levels of the lum bar spine particularly at L1-L2 and L2-L3. There are degenerative changes of the facets at multiple l evels of the lumbar spine. DISKS: There is mild disc space narrowing at T12-L1 and L2-L3. ALIGNMENT: Lumbar spinal alignment is within normal limits. No spondylolysis or spondylolisthesis. SOFT TISSUE: Normal. IMPRESSION: Moderate degenerative changes in the lumbar spine. DATA REPOSITORY: RADIATION DOSE DELIVERED:
== END ==
PROVIDERS: PCP Nurse Practitioner Family; Visit Provider Nurse Practitioner Family
DX: M51.25 Other intervertebral disc displacement, thoracolumbar region (principal)
CPT/HCPCS: 72110

== ENCOUNTER 2023-10-17 03:18 | Outpatient (RCR) | payer BC, SELFPAY ==
[2023-09-19] MEDS: VEDOLIZUMAB 300 MG in Normal Saline 250 ML 500 MG IVPB (08:44)
[2023-09-19] MEDS: Normal Saline Flush 10 ML SYR IVP (08:45)
[2023-09-19 09:32] LABS: Abs Immature Grans 0.03 10^3/uL (0.0-0.06); Absolute Basophil Count 0.03 10^3/uL (0.0-0.2); Absolute Eosinophil Count 0.19 10^3/uL (0.0-0.7); Absolute Lymphocyte Count 0.69 10^3/uL (1.2-3.4); Absolute Monocyte Count 0.52 10^3/uL (0.1-0.8); Absolute Neutrophil Count 4.33 10^3/uL (1.2-6.7); Basophils % 0.5; Eosinophils % 3.3; HCT 43.8 % (40.0-50.0); HGB 15.1 g/dL (13.5-17.5); Immature Grans % 0.5; Lymphocytes % 11.9; MCH 32.7 pg (27.0-33.0); MCHC 34.5 % (32.0-36.0); MCV 95 fL (80-95); MPV 11.2 fL (8.0-11.0); Neutrophils % 74.8; Platelet Count 200 10^3/uL (130-400); RBC 4.62 10^6/uL (4.36-5.78); RDW 14.9 % (11.8-14.1); WBC 5.79 10^3/uL (4.4-10.8)
[2023-09-26 02:01] LABS: 6-Thioguanine Nucleotides 128 (235 - 450)
[2023-10-17] MEDS: VEDOLIZUMAB 300 MG in Normal Saline 250 ML 500 MG IVPB (08:46)
[2023-10-17] MEDS: Normal Saline Flush 10 ML SYR IVP (08:46)
[2023-10-17 09:25] LABS: Abs Immature Grans 0.04 10^3/uL (0.0-0.06); Absolute Basophil Count 0.04 10^3/uL (0.0-0.2); Absolute Eosinophil Count 0.33 10^3/uL (0.0-0.7); Absolute Lymphocyte Count 0.63 10^3/uL (1.2-3.4); Absolute Neutrophil Count 5.21 10^3/uL (1.2-6.7); Basophils % 0.6; Eosinophils % 4.8; HCT 44.3 % (40.0-50.0); HGB 15.1 g/dL (13.5-17.5); Immature Grans % 0.6; Lymphocytes % 9.2; MCH 32.4 pg (27.0-33.0); MCHC 34.1 % (32.0-36.0); MCV 95 fL (80-95); MPV 11.1 fL (8.0-11.0); Monocytes % 8.8; Platelet Count 224 10^3/uL (130-400); RBC 4.66 10^6/uL (4.36-5.78); RDW 15.1 % (11.8-14.1); RDW-SD 52.5 fL; WBC 6.85 10^3/uL (4.4-10.8)
== END 2023-10-17 23:59 | disposition home or self-care (01) ==
LOC: INF 03:18
PROVIDERS: Internal Medicine Gastroenterology; PCP Nurse Practitioner Family; Visit Provider Internal Medicine
DX: K50.913 Crohn's disease, unspecified, with fistula (principal)
CPT/HCPCS: 36415; 80299; 96365; 85025; J3380

== ENCOUNTER 2023-11-14 02:41 | Outpatient (RCR) | payer BC, SELFPAY ==
[2023-11-14] MEDS: VEDOLIZUMAB 300 MG in Normal Saline 250 ML 500 MG IVPB (08:39)
[2023-11-14] MEDS: Normal Saline Flush 10 ML SYR IVP (08:39)
[2023-11-14 08:44] LABS: Abs Immature Grans 0.04 10^3/uL (0.0-0.06); Absolute Basophil Count 0.03 10^3/uL (0.0-0.2); Absolute Eosinophil Count 0.23 10^3/uL (0.0-0.7); Absolute Lymphocyte Count 0.74 10^3/uL (1.2-3.4); Absolute Monocyte Count 0.56 10^3/uL (0.1-0.8); Absolute Neutrophil Count 5.67 10^3/uL (1.2-6.7); Basophils % 0.4; Eosinophils % 3.2; HCT 45.1 % (40.0-50.0); HGB 15.3 g/dL (13.5-17.5); Immature Grans % 0.6; Lymphocytes % 10.2; MCH 32.8 pg (27.0-33.0); MCHC 33.9 % (32.0-36.0); MCV 97 fL (80-95); Monocytes % 7.7; Neutrophils % 77.9; Platelet Count 215 10^3/uL (130-400); RBC 4.67 10^6/uL (4.36-5.78); RDW 15.3 % (11.8-14.1); RDW-SD 54.1 fL; WBC 7.27 10^3/uL (4.4-10.8)
== END 2023-11-15 23:59 | disposition home or self-care (01) ==
LOC: INF 02:41
PROVIDERS: PCP Nurse Practitioner Family; Visit Provider Internal Medicine
DX: K50.913 Crohn's disease, unspecified, with fistula (principal); K50.912 Crohn's disease, unspecified, with intestinal obstruction; Z51.81 Encounter for therapeutic drug level monitoring
CPT/HCPCS: 36415; 96365; 85025; J3380

== ENCOUNTER 2023-12-12 04:37 | Outpatient (RCR) | payer BC, SELFPAY ==
[2023-12-12 08:55] LABS: Abs Immature Grans 0.02 10^3/uL (0.0-0.06); Absolute Basophil Count 0.02 10^3/uL (0.0-0.2); Absolute Eosinophil Count 0.23 10^3/uL (0.0-0.7); Absolute Lymphocyte Count 0.67 10^3/uL (1.2-3.4); Absolute Monocyte Count 0.38 10^3/uL (0.1-0.8); Basophils % 0.3; Eosinophils % 3.7; HCT 44.7 % (40.0-50.0); Immature Grans % 0.3; Lymphocytes % 10.8; MCH 32.8 pg (27.0-33.0); MCHC 33.6 % (32.0-36.0); MCV 98 fL (80-95); MPV 10.9 fL (8.0-11.0); Monocytes % 6.1; Neutrophils % 78.8; Platelet Count 197 10^3/uL (130-400); RBC 4.58 10^6/uL (4.36-5.78); RDW 14.6 % (11.8-14.1); RDW-SD 51.8 fL; WBC 6.22 10^3/uL (4.4-10.8)
[2023-12-12] MEDS: Normal Saline Flush 10 ML SYR IVP (09:13)
[2023-12-12] MEDS: VEDOLIZUMAB 300 MG in Normal Saline 250 ML 500 MG IVPB (09:13)
== END 2023-12-16 23:59 | disposition home or self-care (01) ==
LOC: INF 04:37
PROVIDERS: Internal Medicine Gastroenterology; PCP Nurse Practitioner Family; Visit Provider Internal Medicine
DX: K50.912 Crohn's disease, unspecified, with intestinal obstruction (principal); K50.913 Crohn's disease, unspecified, with fistula; Z51.81 Encounter for therapeutic drug level monitoring
CPT/HCPCS: 96365; 85025; J3380

== ENCOUNTER 2024-01-09 04:51 | Outpatient (RCR) | payer BC, SELFPAY ==
[2024-01-09 08:30] LABS: Abs Immature Grans 0.07 10^3/uL (0.0-0.06); Absolute Basophil Count 0.02 10^3/uL (0.0-0.2); Absolute Eosinophil Count 0.15 10^3/uL (0.0-0.7); Absolute Lymphocyte Count 0.54 10^3/uL (1.2-3.4); Absolute Monocyte Count 0.33 10^3/uL (0.1-0.8); Absolute Neutrophil Count 5.88 10^3/uL (1.2-6.7); Basophils % 0.3; Eosinophils % 2.1; HCT 46.1 % (40.0-50.0); HGB 15.5 g/dL (13.5-17.5); Lymphocytes % 7.7; MCHC 33.6 % (32.0-36.0); MCV 98 fL (80-95); MPV 11.2 fL (8.0-11.0); Monocytes % 4.7; Neutrophils % 84.2; Platelet Count 203 10^3/uL (130-400); RBC 4.69 10^6/uL (4.36-5.78); RDW 14.6 % (11.8-14.1); RDW-SD 53.1 fL; WBC 6.99 10^3/uL (4.4-10.8)
[2024-01-09] MEDS: Normal Saline Flush 10 ML SYR IVP (08:46)
[2024-01-09] MEDS: VEDOLIZUMAB 300 MG in Normal Saline 250 ML 500 MG IVPB (08:46)
[2024-01-09 08:50] LABS: ALT 82 U/L (16-63); AST 35 U/L (15-37); Albumin 3.6 g/dL (3.4-5.0); Alkaline Phosphatase 59 U/L (46-116); Anion Gap 9.7 mmol/L (3-11); BUN 20 mg/dL (7-18); Bilirubin, Direct 0.2 mg/dL (0.0-0.2); Bilirubin, Total 0.5 mg/dL (0.2-1.0); CO2 28.3 mmol/L (21.0-32.0); CREATININE 1.1 mg/dL (0.70-1.30); Calcium 9.3 mg/dL (8.5-10.1); Chloride 105 mmol/L (98-107); Estimated GFR 81.78 (mL/min/1.73m2); GGT 34 U/L (15-85); Glucose 133 mg/dL (74-106); Potassium 4.1 mmol/L (3.5-5.1); Sodium 143 mmol/L (136-145); Total Protein 7.8 g/dL (6.4-8.2)
[2024-01-09 08:51] LABS: C-Reactive Protein < 0.50 mg/dL (<or=0.5)
[2024-01-10 18:31] LABS: Vitamin B12 748 pg/mL (193-986)
[2024-01-12 14:10] LABS: 6-Thioguanine Nucleotides 152 (235 - 450)
== END 2024-01-15 23:59 | disposition home or self-care (01) ==
LOC: INF 04:51
PROVIDERS: Internal Medicine Gastroenterology; PCP Nurse Practitioner Family; Visit Provider Internal Medicine
DX: K50.912 Crohn's disease, unspecified, with intestinal obstruction (principal); K50.913 Crohn's disease, unspecified, with fistula; Z51.81 Encounter for therapeutic drug level monitoring
CPT/HCPCS: 36415; 80048; 80076; 80299; 96365; 82607; 82977; 85025; 86140; J3380

== ENCOUNTER 2024-02-06 04:59 | Outpatient (RCR) | payer BC, SELFPAY ==
[2024-02-06] MEDS: Normal Saline Flush 10 ML SYR IVP ×2 (08:31→08:48)
[2024-02-06 08:42] LABS: Abs Immature Grans 0.04 10^3/uL (0.0-0.06); Absolute Basophil Count 0.03 10^3/uL (0.0-0.2); Absolute Eosinophil Count 0.24 10^3/uL (0.0-0.7); Absolute Lymphocyte Count 0.87 10^3/uL (1.2-3.4); Absolute Monocyte Count 0.39 10^3/uL (0.1-0.8); Absolute Neutrophil Count 5.05 10^3/uL (1.2-6.7); Basophils % 0.5 %; Eosinophils % 3.6 %; HGB 15.9 g/dL (13.5-17.5); Immature Grans % 0.6 %; Lymphocytes % 13.1 %; MCH 32.9 pg (27.0-33.0); MCHC 34.6 % (32.0-36.0); MCV 95 fL (80-95); MPV 11.4 fL (8.0-11.0); Monocytes % 5.9 %; Neutrophils % 76.3 %; Platelet Count 213 10^3/uL (130-400); RBC 4.84 10^6/uL (4.36-5.78); RDW 14.3 % (11.8-14.1); RDW-SD 49.5 fL; WBC 6.62 10^3/uL (4.4-10.8)
[2024-02-06] MEDS: VEDOLIZUMAB 300 MG in Normal Saline 250 ML 500 MG IVPB (08:47)
== END 2024-02-15 23:59 | disposition home or self-care (01) ==
LOC: INF 04:59
PROVIDERS: Internal Medicine Gastroenterology; PCP Nurse Practitioner Family; Visit Provider Internal Medicine
DX: K50.913 Crohn's disease, unspecified, with fistula (principal)
CPT/HCPCS: 96365; 85025; J3380

== ENCOUNTER 2024-02-06 05:19 | Outpatient (CLI) | payer BC, SELFPAY ==
[2024-02-06 07:46] LABS: Calculated LDL 94 mg/dL (<100); Cholesterol 167 mg/dL (<200); HDL Cholesterol 45 mg/dL (40-60); Triglyceride 143 mg/dL (<150)
== END 2024-02-06 05:20 | disposition home or self-care (01) ==
LOC: LBO 05:19
PROVIDERS: PCP Nurse Practitioner Family; Visit Provider Nurse Practitioner Family
DX: Z13.220 Encounter for screening for lipoid disorders (principal)
CPT/HCPCS: 36415; 80061

== ENCOUNTER 2024-03-05 04:40 | Outpatient (RCR) | payer BC, SELFPAY ==
[2024-03-05] MEDS: VEDOLIZUMAB 300 MG in Normal Saline 250 ML 500 MG IVPB (08:57)
[2024-03-05] MEDS: Normal Saline Flush 10 ML SYR IVP (08:57)
[2024-03-05 09:02] LABS: Abs Immature Grans 0.02 10^3/uL (0.0-0.06); Absolute Basophil Count 0.01 10^3/uL (0.0-0.2); Absolute Eosinophil Count 0.21 10^3/uL (0.0-0.7); Absolute Lymphocyte Count 0.68 10^3/uL (1.2-3.4); Absolute Monocyte Count 0.41 10^3/uL (0.1-0.8); Absolute Neutrophil Count 4.28 10^3/uL (1.2-6.7); Basophils % 0.2 %; Eosinophils % 3.7 %; HCT 44.3 % (40.0-50.0); Immature Grans % 0.4 %; Lymphocytes % 12.1 %; MCHC 33.9 % (32.0-36.0); MCV 97 fL (80-95); MPV 11.3 fL (8.0-11.0); Monocytes % 7.3 %; Neutrophils % 76.3 %; Platelet Count 198 10^3/uL (130-400); RBC 4.55 10^6/uL (4.36-5.78); RDW 14.4 % (11.8-14.1); RDW-SD 51.6 fL; WBC 5.61 10^3/uL (4.4-10.8)
== END 2024-03-16 23:59 | disposition home or self-care (01) ==
LOC: INF 04:40
PROVIDERS: Internal Medicine Gastroenterology; PCP Nurse Practitioner Family; Visit Provider Internal Medicine
DX: K50.913 Crohn's disease, unspecified, with fistula (principal)
CPT/HCPCS: 96365; 85025; J3380

== ENCOUNTER 2024-04-02 02:46 | Outpatient (RCR) | payer BC, SELFPAY ==
[2024-04-02 08:46] LABS: Abs Immature Grans 0.02 10^3/uL (0.0-0.06); Absolute Basophil Count 0.02 10^3/uL (0.0-0.2); Absolute Monocyte Count 0.34 10^3/uL (0.1-0.8); Absolute Neutrophil Count 4.08 10^3/uL (1.2-6.7); Basophils % 0.4 %; Eosinophils % 3.8 %; HCT 42.6 % (40.0-50.0); HGB 14.4 g/dL (13.5-17.5); Immature Grans % 0.4 %; Lymphocytes % 11.4 %; MCH 32.9 pg (27.0-33.0); MCHC 33.8 % (32.0-36.0); MCV 97 fL (80-95); MPV 11.2 fL (8.0-11.0); Monocytes % 6.5 %; Neutrophils % 77.5 %; Platelet Count 197 10^3/uL (130-400); RBC 4.38 10^6/uL (4.36-5.78); RDW 14.5 % (11.8-14.1); RDW-SD 51.8 fL; WBC 5.26 10^3/uL (4.4-10.8)
[2024-04-02] MEDS: VEDOLIZUMAB 300 MG in Normal Saline 250 ML 500 MG IVPB (08:50)
[2024-04-02] MEDS: Normal Saline Flush 10 ML SYR IVP (08:50)
== END 2024-04-16 23:59 | disposition home or self-care (01) ==
LOC: INF 02:46
PROVIDERS: Internal Medicine Gastroenterology; PCP Nurse Practitioner Family; Visit Provider Internal Medicine
DX: K50.912 Crohn's disease, unspecified, with intestinal obstruction (principal); K50.913 Crohn's disease, unspecified, with fistula; Z51.81 Encounter for therapeutic drug level monitoring
CPT/HCPCS: 36415; 96365; 85025; J3380

== ENCOUNTER 2024-04-30 02:38 | Outpatient (RCR) | payer BC, SELFPAY ==
[2024-04-30 08:45] LABS: Abs Immature Grans 0.02 10^3/uL (0.0-0.06); Absolute Basophil Count 0.02 10^3/uL (0.0-0.2); Absolute Lymphocyte Count 0.74 10^3/uL (1.2-3.4); Absolute Monocyte Count 0.47 10^3/uL (0.1-0.8); Absolute Neutrophil Count 3.97 10^3/uL (1.2-6.7); Basophils % 0.4 %; Eosinophils % 3.7 %; HGB 15.6 g/dL (13.5-17.5); Immature Grans % 0.4 %; Lymphocytes % 13.7 %; MCH 32.7 pg (27.0-33.0); MCHC 33.9 % (32.0-36.0); MCV 96 fL (80-95); MPV 11.3 fL (8.0-11.0); Monocytes % 8.7 %; Neutrophils % 73.1 %; Platelet Count 222 10^3/uL (130-400); RBC 4.77 10^6/uL (4.36-5.78); RDW 14.6 % (11.8-14.1); RDW-SD 52.1 fL; WBC 5.42 10^3/uL (4.4-10.8)
[2024-04-30] MEDS: VEDOLIZUMAB 300 MG in Normal Saline 250 ML 500 MG IVPB (08:57)
[2024-04-30] MEDS: Normal Saline Flush 10 ML SYR IVP (08:57)
== END 2024-05-17 23:59 | disposition home or self-care (01) ==
LOC: INF 02:38
PROVIDERS: Internal Medicine Gastroenterology; PCP Nurse Practitioner Family; Visit Provider Internal Medicine
DX: K50.912 Crohn's disease, unspecified, with intestinal obstruction (principal); K50.913 Crohn's disease, unspecified, with fistula; Z51.81 Encounter for therapeutic drug level monitoring
CPT/HCPCS: 36415; 96365; 85025; J3380

== ENCOUNTER 2024-05-28 03:05 | Outpatient (RCR) | payer BC, SELFPAY ==
[2024-05-28] MEDS: VEDOLIZUMAB 300 MG in Normal Saline 250 ML 500 MG IVPB (08:56)
[2024-05-28] MEDS: Normal Saline Flush 10 ML SYR IVP (08:56)
[2024-05-28 09:41] LABS: Abs Immature Grans 0.03 10^3/uL (0.0-0.06); Absolute Basophil Count 0.02 10^3/uL (0.0-0.2); Absolute Eosinophil Count 0.19 10^3/uL (0.0-0.7); Absolute Lymphocyte Count 0.65 10^3/uL (1.2-3.4); Absolute Monocyte Count 0.45 10^3/uL (0.1-0.8); Absolute Neutrophil Count 4.92 10^3/uL (1.2-6.7); Basophils % 0.3 %; HCT 45.5 % (40.0-50.0); HGB 15.6 g/dL (13.5-17.5); Immature Grans % 0.5 %; Lymphocytes % 10.4 %; MCH 32.8 pg (27.0-33.0); MCHC 34.3 % (32.0-36.0); MCV 96 fL (80-95); MPV 11.3 fL (8.0-11.0); Monocytes % 7.2 %; Neutrophils % 78.6 %; Platelet Count 219 10^3/uL (130-400); RBC 4.76 10^6/uL (4.36-5.78); RDW 14.1 % (11.8-14.1); RDW-SD 49.4 fL; WBC 6.26 10^3/uL (4.4-10.8)
== END 2024-06-16 23:59 | disposition home or self-care (01) ==
LOC: INF 03:05
PROVIDERS: Internal Medicine Gastroenterology; PCP Nurse Practitioner Family; Visit Provider Internal Medicine
DX: K50.912 Crohn's disease, unspecified, with intestinal obstruction (principal); K50.913 Crohn's disease, unspecified, with fistula; Z51.81 Encounter for therapeutic drug level monitoring
CPT/HCPCS: 36415; 96365; 85025; J3380

== ENCOUNTER 2024-06-25 01:22 | Outpatient (RCR) | payer BC, SELFPAY ==
[2024-06-25 08:46] LABS: Abs Immature Grans 0.02 10^3/uL (0.0-0.06); Absolute Basophil Count 0.02 10^3/uL (0.0-0.2); Absolute Eosinophil Count 0.22 10^3/uL (0.0-0.7); Absolute Lymphocyte Count 0.59 10^3/uL (1.2-3.4); Absolute Monocyte Count 0.63 10^3/uL (0.1-0.8); Absolute Neutrophil Count 5.09 10^3/uL (1.2-6.7); Basophils % 0.3 %; Eosinophils % 3.3 %; HCT 44.3 % (40.0-50.0); HGB 15.2 g/dL (13.5-17.5); Immature Grans % 0.3 %; MCH 32.8 pg (27.0-33.0); MCHC 34.3 % (32.0-36.0); MCV 96 fL (80-95); MPV 11.4 fL (8.0-11.0); Monocytes % 9.6 %; Neutrophils % 77.5 %; Platelet Count 219 10^3/uL (130-400); RBC 4.64 10^6/uL (4.36-5.78); RDW 14.7 % (11.8-14.1); RDW-SD 51.3 fL; WBC 6.57 10^3/uL (4.4-10.8)
[2024-06-25] MEDS: VEDOLIZUMAB 300 MG in Normal Saline 250 ML 500 MG IVPB (08:54)
[2024-06-25] MEDS: Normal Saline Flush 10 ML SYR IVP (08:54)
== END 2024-07-17 23:59 | disposition home or self-care (01) ==
LOC: INF 01:22
PROVIDERS: Internal Medicine Gastroenterology; PCP Nurse Practitioner Family; Visit Provider Internal Medicine
DX: K50.912 Crohn's disease, unspecified, with intestinal obstruction (principal); K50.913 Crohn's disease, unspecified, with fistula; Z51.81 Encounter for therapeutic drug level monitoring
CPT/HCPCS: 36415; 96365; 85025; J3380

== ENCOUNTER 2024-07-23 02:58 | Outpatient (RCR) | payer BC, SELFPAY ==
[2024-07-23 08:29] LABS: Abs Immature Grans 0.02 10^3/uL (0.0-0.06); Absolute Basophil Count 0.03 10^3/uL (0.0-0.2); Absolute Eosinophil Count 0.22 10^3/uL (0.0-0.7); Absolute Lymphocyte Count 0.64 10^3/uL (1.2-3.4); Absolute Monocyte Count 0.52 10^3/uL (0.1-0.8); Absolute Neutrophil Count 5.05 10^3/uL (1.2-6.7); Basophils % 0.5 %; Eosinophils % 3.4 %; HCT 44.5 % (40.0-50.0); HGB 15.2 g/dL (13.5-17.5); Immature Grans % 0.3 %; Lymphocytes % 9.9 %; MCH 32.6 pg (27.0-33.0); MCHC 34.2 % (32.0-36.0); MCV 96 fL (80-95); MPV 10.9 fL (8.0-11.0); Neutrophils % 77.9 %; Platelet Count 200 10^3/uL (130-400); RBC 4.66 10^6/uL (4.36-5.78); RDW 14.8 % (11.8-14.1); RDW-SD 52.2 fL; WBC 6.48 10^3/uL (4.4-10.8)
[2024-07-23] MEDS: VEDOLIZUMAB 300 MG in Normal Saline 250 ML 500 MG IVPB (08:34)
[2024-07-23] MEDS: Normal Saline Flush 10 ML SYR IVP (08:37)
[2024-07-23 09:06] LABS: Iron 76 ug/dL (65-175); Total Iron Binding Capacity 266 ug/dL (250-450); Transferrin Sat 29 % (20-55)
[2024-07-23 09:50] LABS: ALT 65 U/L (16-63); AST 42 U/L (15-37); Albumin 3.5 g/dL (3.4-5.0); Alkaline Phosphatase 63 U/L (46-116); Anion Gap 9.8 mmol/L (3-11); BUN 14 mg/dL (7-18); Bilirubin, Direct 0.1 mg/dL (0.0-0.2); Bilirubin, Total 0.51 mg/dL (0.2-1.0); C-Reactive Protein 0.92 mg/dL (<or=0.5); CO2 27.2 mmol/L (21.0-32.0); CREATININE 0.9 mg/dL (0.70-1.30); Calcium 9.2 mg/dL (8.5-10.1); Chloride 107 mmol/L (98-107); Ferritin 105 ng/mL (26-388); Glucose 97 mg/dL (74-106); Potassium 4.1 mmol/L (3.5-5.1); Sodium 144 mmol/L (136-145); Vitamin B12 1127 pg/mL (193-986)
[2024-07-23 09:56] LABS: GGT 30 U/L (15-85)
[2024-07-26 11:48] LABS: 6-Thioguanine Nucleotides 112 (235 - 450)
== END 2024-08-16 23:59 | disposition home or self-care (01) ==
LOC: INF 02:58
PROVIDERS: Internal Medicine Gastroenterology; PCP Nurse Practitioner Family; Visit Provider Internal Medicine
DX: K50.912 Crohn's disease, unspecified, with intestinal obstruction (principal); K50.913 Crohn's disease, unspecified, with fistula; R94.5 Abnormal results of liver function studies; Z51.81 Encounter for therapeutic drug level monitoring
CPT/HCPCS: 36415; 80048; 80076; 80299; 96365; 82607; 82728; 82977; 83540; 83550; 85025; 86140; J3380

== ENCOUNTER 2024-08-20 02:09 | Outpatient (RCR) | payer BC, SELFPAY ==
[2024-08-20 07:55] LABS: Abs Immature Grans 0.03 10^3/uL (0.0-0.06); Absolute Basophil Count 0.02 10^3/uL (0.0-0.2); Absolute Eosinophil Count 0.28 10^3/uL (0.0-0.7); Absolute Lymphocyte Count 0.68 10^3/uL (1.2-3.4); Absolute Monocyte Count 0.47 10^3/uL (0.1-0.8); Absolute Neutrophil Count 4.87 10^3/uL (1.2-6.7); Basophils % 0.3 %; Eosinophils % 4.4 %; HCT 45.1 % (40.0-50.0); HGB 15.4 g/dL (13.5-17.5); Immature Grans % 0.5 %; Lymphocytes % 10.7 %; MCHC 34.1 % (32.0-36.0); MCV 97 fL (80-95); MPV 11.2 fL (8.0-11.0); Monocytes % 7.4 %; Neutrophils % 76.7 %; Platelet Count 189 10^3/uL (130-400); RBC 4.66 10^6/uL (4.36-5.78); RDW 14.6 % (11.8-14.1); RDW-SD 51.6 fL; WBC 6.35 10^3/uL (4.4-10.8)
[2024-08-20] MEDS: VEDOLIZUMAB 300 MG in Normal Saline 250 ML 500 MG IVPB (08:24)
[2024-08-20] MEDS: Normal Saline Flush 10 ML SYR IVP (08:24)
== END 2024-09-16 23:59 | disposition home or self-care (01) ==
LOC: INF 02:09
PROVIDERS: Internal Medicine Gastroenterology; PCP Nurse Practitioner Family; Visit Provider Internal Medicine
DX: K50.912 Crohn's disease, unspecified, with intestinal obstruction (principal); K50.913 Crohn's disease, unspecified, with fistula; Z51.81 Encounter for therapeutic drug level monitoring
CPT/HCPCS: 96365; 85025; J3380

== ENCOUNTER 2024-09-18 03:17 | Outpatient (RCR) | payer BC, SELFPAY ==
[2024-09-18] MEDS: VEDOLIZUMAB 300 MG in Normal Saline 250 ML 500 MG IVPB (08:21)
[2024-09-18] MEDS: Normal Saline Flush 10 ML SYR IVP (08:38)
[2024-09-18 08:45] LABS: Abs Immature Grans 0.03 10^3/uL (0.0-0.06); Absolute Basophil Count 0.03 10^3/uL (0.0-0.2); Absolute Eosinophil Count 0.21 10^3/uL (0.0-0.7); Absolute Monocyte Count 0.48 10^3/uL (0.1-0.8); Absolute Neutrophil Count 4.62 10^3/uL (1.2-6.7); Basophils % 0.5 %; Eosinophils % 3.5 %; HCT 44.8 % (40.0-50.0); HGB 15.3 g/dL (13.5-17.5); Immature Grans % 0.5 %; Lymphocytes % 11.5 %; MCH 33.4 pg (27.0-33.0); MCHC 34.2 % (32.0-36.0); MCV 98 fL (80-95); MPV 10.9 fL (8.0-11.0); Monocytes % 7.9 %; Neutrophils % 76.1 %; Platelet Count 215 10^3/uL (130-400); RBC 4.58 10^6/uL (4.36-5.78); RDW 14.6 % (11.8-14.1); RDW-SD 52.4 fL; WBC 6.07 10^3/uL (4.4-10.8)
== END 2024-10-17 23:59 | disposition home or self-care (01) ==
LOC: INF 03:17
PROVIDERS: Internal Medicine Gastroenterology; PCP Nurse Practitioner Family; Visit Provider Internal Medicine
DX: K50.912 Crohn's disease, unspecified, with intestinal obstruction (principal); K50.913 Crohn's disease, unspecified, with fistula; Z51.81 Encounter for therapeutic drug level monitoring
CPT/HCPCS: 36415; 96365; 85025; J3380

== ENCOUNTER 2024-10-22 00:52 | Outpatient (RCR) | payer BC, SELFPAY ==
[2024-10-22 13:37] LABS: Abs Immature Grans 0.03 10^3/uL (0.0-0.06); Absolute Basophil Count 0.02 10^3/uL (0.0-0.2); Absolute Eosinophil Count 0.19 10^3/uL (0.0-0.7); Absolute Lymphocyte Count 0.91 10^3/uL (1.2-3.4); Absolute Monocyte Count 0.45 10^3/uL (0.1-0.8); Basophils % 0.3 %; Eosinophils % 2.8 %; HCT 41.6 % (40.0-50.0); HGB 14.4 g/dL (13.5-17.5); Immature Grans % 0.4 %; Lymphocytes % 13.4 %; MCH 32.9 pg (27.0-33.0); MCHC 34.6 % (32.0-36.0); MCV 95 fL (80-95); MPV 10.8 fL (8.0-11.0); Monocytes % 6.6 %; Neutrophils % 76.5 %; Platelet Count 212 10^3/uL (130-400); RBC 4.38 10^6/uL (4.36-5.78); RDW-SD 51.2 fL
[2024-10-22] MEDS: VEDOLIZUMAB 300 MG in Normal Saline 250 ML 500 MG IVPB (13:45)
[2024-10-22] MEDS: Normal Saline Flush 10 ML SYR IVP (13:45)
== END 2024-11-14 23:59 | disposition home or self-care (01) ==
LOC: INF 00:52
PROVIDERS: Internal Medicine Gastroenterology; PCP Nurse Practitioner Family; Visit Provider Internal Medicine
DX: K50.912 Crohn's disease, unspecified, with intestinal obstruction (principal); K50.913 Crohn's disease, unspecified, with fistula
CPT/HCPCS: 96365; 85025; J3380

== ENCOUNTER 2024-10-28 13:07 | Outpatient (REF) | payer BC, SELFPAY ==
[2024-10-28 22:13] LABS: Campylobacter PCR Negative (Negative); Salmonella PCR Negative (Negative); Shiga Toxin PCR Negative (Negative); Shigella/Enteroinvasive Ecoli Negative (Negative)
== END 2024-10-28 13:08 | disposition home or self-care (01) ==
LOC: LBN 13:07
PROVIDERS: PCP Nurse Practitioner Family; Visit Provider Internal Medicine Gastroenterology
DX: K50.912 Crohn's disease, unspecified, with intestinal obstruction (principal)
CPT/HCPCS: 83631; 87505

== ENCOUNTER 2024-11-19 02:55 | Outpatient (RCR) | payer BC, SELFPAY ==
[2024-11-19] MEDS: VEDOLIZUMAB 300 MG in Normal Saline 250 ML 500 MG IVPB (08:24)
[2024-11-19] MEDS: Normal Saline Flush 10 ML SYR IVP (08:25)
[2024-11-19 08:43] LABS: Abs Immature Grans 0.05 10^3/uL (0.0-0.06); Absolute Basophil Count 0.02 10^3/uL (0.0-0.2); Absolute Eosinophil Count 0.22 10^3/uL (0.0-0.7); Absolute Lymphocyte Count 0.81 10^3/uL (1.2-3.4); Absolute Monocyte Count 0.46 10^3/uL (0.1-0.8); Absolute Neutrophil Count 4.58 10^3/uL (1.2-6.7); Basophils % 0.3 %; Eosinophils % 3.6 %; HCT 42.9 % (40.0-50.0); HGB 14.4 g/dL (13.5-17.5); Immature Grans % 0.8 %; Lymphocytes % 13.2 %; MCHC 33.6 % (32.0-36.0); MCV 98 fL (80-95); MPV 11.2 fL (8.0-11.0); Monocytes % 7.5 %; Neutrophils % 74.6 %; Platelet Count 236 10^3/uL (130-400); RBC 4.37 10^6/uL (4.36-5.78); RDW 15.3 % (11.8-14.1); RDW-SD 55.9 fL; WBC 6.14 10^3/uL (4.4-10.8)
== END 2024-12-15 23:59 | disposition home or self-care (01) ==
LOC: INF 02:55
PROVIDERS: Internal Medicine Gastroenterology; PCP Nurse Practitioner Family; Visit Provider Internal Medicine
DX: K50.912 Crohn's disease, unspecified, with intestinal obstruction (principal); K50.913 Crohn's disease, unspecified, with fistula
CPT/HCPCS: 36415; 96365; 85025; J3380

== ENCOUNTER 2024-12-11 17:22 | Outpatient (REF) | payer BC, SELFPAY ==
[2024-12-17 21:28] LABS: Lactoferrin, Qt, Stool 44.75 mcg/mL (<7.25)
== END 2024-12-11 17:23 | disposition home or self-care (01) ==
LOC: LBN 17:22
PROVIDERS: PCP Nurse Practitioner Family; Visit Provider Internal Medicine Gastroenterology
DX: K50.912 Crohn's disease, unspecified, with intestinal obstruction (principal); K50.913 Crohn's disease, unspecified, with fistula
CPT/HCPCS: 83631

== ENCOUNTER 2025-01-14 01:18 | Outpatient (RCR) | payer BC, SELFPAY ==
[2024-12-17] MEDS: VEDOLIZUMAB 300 MG in Normal Saline 250 ML 500 MG IVPB (08:30)
[2024-12-17] MEDS: Normal Saline Flush 5 ML SYR IVP (08:30)
[2024-12-17 08:42] LABS: Abs Immature Grans 0.04 10^3/uL (0.0-0.06); Absolute Basophil Count 0.02 10^3/uL (0.0-0.2); Absolute Eosinophil Count 0.28 10^3/uL (0.0-0.7); Absolute Lymphocyte Count 0.73 10^3/uL (1.2-3.4); Absolute Monocyte Count 0.53 10^3/uL (0.1-0.8); Absolute Neutrophil Count 5.19 10^3/uL (1.2-6.7); Basophils % 0.3 %; Eosinophils % 4.1 %; HCT 42.6 % (40.0-50.0); HGB 14.7 g/dL (13.5-17.5); Immature Grans % 0.6 %; Lymphocytes % 10.8 %; MCHC 34.5 % (32.0-36.0); MCV 96 fL (80-95); MPV 10.9 fL (8.0-11.0); Monocytes % 7.8 %; Neutrophils % 76.4 %; Platelet Count 217 10^3/uL (130-400); RBC 4.45 10^6/uL (4.36-5.78); RDW 14.6 % (11.8-14.1); RDW-SD 51.1 fL; WBC 6.79 10^3/uL (4.4-10.8)
[2024-12-17 09:01] LABS: ALT 50 U/L (16-63); AST 41 U/L (15-37); Albumin 3.5 g/dL (3.4-5.0); Alkaline Phosphatase 77 U/L (46-116); Bilirubin, Direct 0.1 mg/dL (0.0-0.2); Bilirubin, Total 0.5 mg/dL (0.2-1.0); GGT 25 U/L (15-85)
[2024-12-17 09:25] LABS: Iron 105 ug/dL (65-175); Total Iron Binding Capacity 260 ug/dL (250-450)
[2024-12-17 09:45] LABS: Ferritin 118 ng/mL (26-388)
[2024-12-24 17:12] LABS: Vedolizumab Ab <9.8 ng/mL (<9.8); Vedolizumab QN, S 9.8 mcg/mL
[2025-01-14 07:49] LABS: Abs Immature Grans 0.03 10^3/uL (0.0-0.06); Absolute Basophil Count 0.02 10^3/uL (0.0-0.2); Absolute Eosinophil Count 0.18 10^3/uL (0.0-0.7); Absolute Lymphocyte Count 0.75 10^3/uL (1.2-3.4); Absolute Monocyte Count 0.61 10^3/uL (0.1-0.8); Absolute Neutrophil Count 4.15 10^3/uL (1.2-6.7); Basophils % 0.3 %; Eosinophils % 3.1 %; HGB 16.1 g/dL (13.5-17.5); Immature Grans % 0.5 %; Lymphocytes % 13.1 %; MCH 33.2 pg (27.0-33.0); MCHC 33.5 % (32.0-36.0); MCV 99 fL (80-95); MPV 10.9 fL (8.0-11.0); Monocytes % 10.6 %; Neutrophils % 72.4 %; Platelet Count 201 10^3/uL (130-400); RBC 4.85 10^6/uL (4.36-5.78); RDW 14.6 % (11.8-14.1); RDW-SD 53.2 fL; WBC 5.74 10^3/uL (4.4-10.8)
[2025-01-14] MEDS: VEDOLIZUMAB 300 MG in Normal Saline 250 ML 500 MG IVPB (08:25)
[2025-01-14] MEDS: Normal Saline Flush 5 ML SYR IVP (08:25)
== END 2025-01-14 23:59 | disposition home or self-care (01) ==
LOC: INF 01:18
PROVIDERS: Internal Medicine Gastroenterology; PCP Nurse Practitioner Family
DX: K50.913 Crohn's disease, unspecified, with fistula (principal); K50.912 Crohn's disease, unspecified, with intestinal obstruction
CPT/HCPCS: 36415; 80076; 82397; 96365; 82728; 82977; 83540; 83550; 85025; J3380

== ENCOUNTER 2025-02-10 02:02 | Outpatient (RCR) | payer BC, SELFPAY ==
[2025-02-10] MEDS: VEDOLIZUMAB 300 MG in Normal Saline 250 ML 500 MG IVPB (08:44)
[2025-02-10] MEDS: Normal Saline Flush 10 ML SYR IVP (08:45)
[2025-02-10 08:55] LABS: Abs Immature Grans 0.03 10^3/uL (0.0-0.06); Absolute Basophil Count 0.03 10^3/uL (0.0-0.2); Absolute Eosinophil Count 0.24 10^3/uL (0.0-0.7); Absolute Lymphocyte Count 0.72 10^3/uL (1.2-3.4); Absolute Monocyte Count 0.53 10^3/uL (0.1-0.8); Basophils % 0.4 %; Eosinophils % 3.4 %; HCT 45.7 % (40.0-50.0); HGB 15.4 g/dL (13.5-17.5); Immature Grans % 0.4 %; Lymphocytes % 10.1 %; MCH 32.9 pg (27.0-33.0); MCHC 33.7 % (32.0-36.0); MCV 98 fL (80-95); MPV 10.9 fL (8.0-11.0); Monocytes % 7.4 %; Neutrophils % 78.3 %; Platelet Count 224 10^3/uL (130-400); RBC 4.68 10^6/uL (4.36-5.78); RDW 14.8 % (11.8-14.1); WBC 7.15 10^3/uL (4.4-10.8)
== END 2025-02-14 23:59 | disposition home or self-care (01) ==
LOC: INF 02:02
PROVIDERS: Internal Medicine Gastroenterology; PCP Nurse Practitioner Family; Visit Provider Nurse Practitioner Family
DX: K50.913 Crohn's disease, unspecified, with fistula (principal); K50.912 Crohn's disease, unspecified, with intestinal obstruction
CPT/HCPCS: 36415; 96365; 85025; J3380

== ENCOUNTER 2025-03-11 01:04 | Outpatient (RCR) | payer BC, SELFPAY ==
[2025-03-11] MEDS: Normal Saline Flush 10 ML SYR IVP (08:09)
[2025-03-11] MEDS: VEDOLIZUMAB 300 MG in Normal Saline 250 ML 500 MG IVPB (08:09)
[2025-03-11 08:35] LABS: Abs Immature Grans 0.04 10^3/uL (0.0-0.06); Absolute Basophil Count 0.01 10^3/uL (0.0-0.2); Absolute Eosinophil Count 0.15 10^3/uL (0.0-0.7); Absolute Lymphocyte Count 0.67 10^3/uL (1.2-3.4); Absolute Monocyte Count 0.44 10^3/uL (0.1-0.8); Absolute Neutrophil Count 4.14 10^3/uL (1.2-6.7); Basophils % 0.2 %; Eosinophils % 2.8 %; HCT 42.4 % (40.0-50.0); HGB 14.6 g/dL (13.5-17.5); Immature Grans % 0.7 %; Lymphocytes % 12.3 %; MCH 33.9 pg (27.0-33.0); MCHC 34.4 % (32.0-36.0); MCV 98 fL (80-95); MPV 11.1 fL (8.0-11.0); Monocytes % 8.1 %; Neutrophils % 75.9 %; Platelet Count 193 10^3/uL (130-400); RBC 4.31 10^6/uL (4.36-5.78); RDW 14.9 % (11.8-14.1); RDW-SD 54.4 fL; WBC 5.45 10^3/uL (4.4-10.8)
== END 2025-03-16 23:59 | disposition home or self-care (01) ==
LOC: INF 01:04
PROVIDERS: Internal Medicine Gastroenterology; PCP Nurse Practitioner Family; Visit Provider Nurse Practitioner Acute Care
DX: K50.913 Crohn's disease, unspecified, with fistula (principal); K50.912 Crohn's disease, unspecified, with intestinal obstruction
CPT/HCPCS: 36415; 96365; 85025; J3380

== ENCOUNTER 2025-04-08 02:20 | Outpatient (RCR) | payer BC, SELFPAY ==
[2025-04-08 08:23] LABS: Abs Immature Grans 0.03 10^3/uL (0.0-0.06); HCT 42.4 % (40.0-50.0); HGB 14.5 g/dL (13.5-17.5); Immature Grans % 0.5 %; MCH 32.9 pg (27.0-33.0); MCHC 34.2 % (32.0-36.0); MCV 96 fL (80-95); MPV 10.9 fL (8.0-11.0); Platelet Count 208 10^3/uL (130-400); RBC 4.41 10^6/uL (4.36-5.78); RDW 15.0 % (11.8-14.1); RDW-SD 53.0 fL; WBC 5.59 10^3/uL (4.4-10.8)
[2025-04-08] MEDS: VEDOLIZUMAB 300 MG in Normal Saline 250 ML 500 MG IVPB (08:34)
[2025-04-08] MEDS: Normal Saline Flush 10 ML SYR IVP (08:35)
== END 2025-04-16 23:59 | disposition home or self-care (01) ==
LOC: INF 02:20
PROVIDERS: Internal Medicine Gastroenterology; PCP Nurse Practitioner Family; Visit Provider Nurse Practitioner Acute Care
DX: K50.913 Crohn's disease, unspecified, with fistula (principal); K50.912 Crohn's disease, unspecified, with intestinal obstruction
CPT/HCPCS: 36415; 96365; 85025; J3380

== ENCOUNTER 2025-05-06 02:43 | Outpatient (CLI) | payer BC, SELFPAY ==
[2025-05-06] MEDS: Normal Saline Flush 10 ML SYR IVP (08:28)
[2025-05-06] MEDS: VEDOLIZUMAB 300 MG in Normal Saline 250 ML 500 MG IVPB (08:35)
[2025-05-06 08:53] LABS: Abs Immature Grans 0.02 10^3/uL (0.0-0.06); HCT 43.7 % (40.0-50.0); HGB 14.8 g/dL (13.5-17.5); Immature Grans % 0.4 %; MCH 33.3 pg (27.0-33.0); MCHC 33.9 % (32.0-36.0); MCV 98 fL (80-95); MPV 11.3 fL (8.0-11.0); Platelet Count 218 10^3/uL (130-400); RBC 4.44 10^6/uL (4.36-5.78); RDW 15.5 % (11.8-14.1); RDW-SD 56.1 fL; WBC 5.07 10^3/uL (4.4-10.8)
== END 2025-05-06 02:44 | disposition home or self-care (01) ==
PROVIDERS: Internal Medicine Gastroenterology; PCP Nurse Practitioner Family; Visit Provider Nurse Practitioner Acute Care
DX: K50.913 Crohn's disease, unspecified, with fistula (principal); K50.912 Crohn's disease, unspecified, with intestinal obstruction
CPT/HCPCS: 36415; 96365; 85025; J3380

== ENCOUNTER 2025-06-03 03:20 | Outpatient (CLI) | payer BC, SELFPAY ==
[2025-06-03] MEDS: Normal Saline Flush 10 ML SYR IVP (09:47)
[2025-06-03] MEDS: VEDOLIZUMAB 300 MG in Normal Saline 250 ML 500 MG IVPB (09:47)
[2025-06-03 10:09] LABS: Abs Immature Grans 0.02 10^3/uL (0.0-0.06); HCT 42.0 % (40.0-50.0); HGB 14.4 g/dL (13.5-17.5); Immature Grans % 0.3 %; MCH 34.6 pg (27.0-33.0); MCHC 34.3 % (32.0-36.0); MCV 101 fL (80-95); MPV 11.8 fL (8.0-11.0); Platelet Count 218 10^3/uL (130-400); RBC 4.16 10^6/uL (4.36-5.78); RDW 15.9 % (11.8-14.1); RDW-SD 59.4 fL; WBC 5.88 10^3/uL (4.4-10.8)
[2025-06-03 11:40] LABS: ALT 51 U/L (16-63); Alkaline Phosphatase 61 U/L (46-116); Bilirubin, Direct 0.2 mg/dL (0.0-0.2); Bilirubin, Total 0.6 mg/dL (0.2-1.0); C-Reactive Protein 1.01 mg/dL (<or=0.5); GGT 17 U/L (15-85); Total Protein 7.7 g/dL (6.4-8.2)
[2025-06-03 12:10] LABS: AST 45 U/L (15-37); Albumin 3.6 g/dL (3.4-5.0); Ferritin 180 ng/mL (26-388)
[2025-06-03 12:25] LABS: Iron 47 ug/dL (65-175)
== END 2025-06-03 03:21 | disposition home or self-care (01) ==
LOC: INF 03:21
PROVIDERS: PCP Nurse Practitioner Family; Visit Provider Internal Medicine Gastroenterology
DX: K50.913 Crohn's disease, unspecified, with fistula (principal); K50.912 Crohn's disease, unspecified, with intestinal obstruction
CPT/HCPCS: 36415; 80076; 96365; 82728; 82977; 83540; 83550; 85025; 86140; J3380

== ENCOUNTER 2025-06-04 00:21 | Outpatient (CLI) | payer BC, SELFPAY ==
[2025-06-04 08:06] LABS: Iron 71 ug/dL (65-175); Total Iron Binding Capacity 244 ug/dL (250-450); Transferrin Sat 29 % (20-55)
== END 2025-06-04 00:22 | disposition home or self-care (01) ==
LOC: INF 00:21
PROVIDERS: PCP Nurse Practitioner Family; Visit Provider Internal Medicine Gastroenterology
DX: K50.912 Crohn's disease, unspecified, with intestinal obstruction (principal); K50.913 Crohn's disease, unspecified, with fistula
CPT/HCPCS: 36415; 83540; 83550

== ENCOUNTER 2025-07-01 01:53 | Outpatient (CLI) | payer BC, SELFPAY ==
[2025-07-01] MEDS: Normal Saline Flush 10 ML SYR IVP (08:55)
[2025-07-01] MEDS: VEDOLIZUMAB 300 MG in Normal Saline 250 ML 500 MG IVPB (08:56)
[2025-07-01 09:00] LABS: Abs Immature Grans 0.03 10^3/uL (0.0-0.06); HCT 41.3 % (40.0-50.0); HGB 13.9 g/dL (13.5-17.5); Immature Grans % 0.6 %; MCH 34.2 pg (27.0-33.0); MCHC 33.7 % (32.0-36.0); MCV 102 fL (80-95); MPV 11.2 fL (8.0-11.0); Platelet Count 218 10^3/uL (130-400); RBC 4.07 10^6/uL (4.36-5.78); RDW 16.2 % (11.8-14.1); RDW-SD 60.7 fL; WBC 5.34 10^3/uL (4.4-10.8)
== END 2025-07-01 01:54 | disposition home or self-care (01) ==
LOC: INF 01:53
PROVIDERS: Internal Medicine Gastroenterology; PCP Nurse Practitioner Family; Visit Provider Family Medicine
DX: K50.912 Crohn's disease, unspecified, with intestinal obstruction (principal); K50.913 Crohn's disease, unspecified, with fistula
CPT/HCPCS: 36415; 96365; 85025; J3380

== ENCOUNTER → 2025-07-24 14:45 | Outpatient (CLI) | payer BC, SELFPAY ==
--- NOTE | 2025-07-24 14:00 | DI.RAD_ITS ---
Exam(s) XR FOOT RT COMPLETE EXAM: XR FOOT RT COMPLETE CLINICAL HISTORY: R22.41 Localized swelling,mass/lump,RT lower limb, eval pathology. TECHNIQUE: 2D digital imaging was performed of the right foot. Three images were obtained. AP, oblique and lateral views were obtained. COMPARISON: No exams were available for comparison FINDINGS: BONES: No acute fracture is present. No bony destructive lesion is seen. There is a small spur at the plantar surface of the calcaneus. JOINTS: No dislocation present. The joint spaces are well maintained. SOFT TISSUE: Normal. IMPRESSION: Unremarkable radiographs of the right foot. There is concern for soft tissue mass, MRI should be considered for further evaluation. DATA REPOSITORY: RADIATION DOSE DELIVERED:
== END ==
LOC: DI 14:46
PROVIDERS: PCP Nurse Practitioner Family; Visit Provider Nurse Practitioner Family
DX: R22.41 Localized swelling, mass and lump, right lower limb (principal)
CPT/HCPCS: 73630

== ENCOUNTER 2025-07-29 01:38 | Outpatient (CLI) | payer BC, SELFPAY ==
[2025-07-29 08:50] LABS: Abs Immature Grans 0.01 10^3/uL (0.0-0.06); HCT 42.4 % (40.0-50.0); HGB 14.4 g/dL (13.5-17.5); Immature Grans % 0.2 %; MCH 35.1 pg (27.0-33.0); MCHC 34.0 % (32.0-36.0); MCV 103 fL (80-95); MPV 11.5 fL (8.0-11.0); Platelet Count 192 10^3/uL (130-400); RBC 4.10 10^6/uL (4.36-5.78); RDW 15.9 % (11.8-14.1); RDW-SD 61.3 fL; WBC 5.58 10^3/uL (4.4-10.8)
[2025-07-29] MEDS: Normal Saline Flush 10 ML SYR IVP (09:12)
[2025-07-29] MEDS: VEDOLIZUMAB 300 MG in Normal Saline 250 ML 500 MG IVPB (09:12)
== END 2025-07-29 01:39 | disposition home or self-care (01) ==
LOC: INF 01:38
PROVIDERS: Internal Medicine Gastroenterology; PCP Nurse Practitioner Family; Visit Provider Family Medicine
DX: K50.912 Crohn's disease, unspecified, with intestinal obstruction (principal); K50.913 Crohn's disease, unspecified, with fistula
CPT/HCPCS: 36415; 96365; 85025; J3380

== ENCOUNTER → 2025-07-29 08:59 | Outpatient (CLI) | payer BC, SELFPAY ==
--- NOTE | 2025-07-29 08:45 | DI.MRI_ITS ---
Exam(s) MR LOWER EXTREMITY RT WO/W EXAM: MR LOWER EXTREMITY RT WO/W CLINICAL HISTORY: eval pathology r22.41 mass rt foot TECHNIQUE: Multiplanar multisequence MRI was performed without intravenous contrast. COMPARISON: CR XR FOOT RT COMPLETE from 07/24/2025 FINDINGS: SKIN: No evidence of ulcer nor subcutaneous tract in the mid and hindfoot. More distally there is a small skin ulcer over the lateral aspect of the distal 5th toe but no evidence of osteomyelitis in the subjacent distal phalanx of the 5th toe. BONES/JOINTS: There is intraosseous edema in the base and proximal half of the 5th metatarsal with a subtle T1 hypointense linear suggestion of a probable stress fracture in the proximal 3rd of this bone.. There is also significant circumferential soft tissue edema around the body of the 5th metatarsal. No findings at the level the head of the 5th metatarsal. There is no intraosseous edema in the other metatarsals but there are thin T1 hypointense transverse lines in the proximal aspects of the 3rd and 4th metatarsals also evident which may be remnants of fractures at these levels. However, there is no intraosseous bone edema in these metatarsals. There are no findings in the 2nd and great toe metatarsals. Metatarsophalangeal joints appear unremarkable. There are no prominent degenerative changes in the tarsometatarsal joints of the midfoot. LISFRANC JOINT: Intact no evidence of tear of the main ligament. LIGAMENTS: No obvious ligament tears evident. MUSCULOTENDINOUS STRUCTURES: No tendon tears nor tenosynovitis evident. SINUS TARSI: Unremarkable. Intact ligaments and fat signal. No evidence of sinus tarsi ganglion cyst. SOFT TISSUES: No evidence of interdigital Gibson's neuroma. OTHER FINDINGS: Inferior calcaneal spur. No evidence of plantar fasciitis nor nodularity of the plantar fascia. No edema in the calcaneus. IMPRESSION: 1. In the lateral aspect of the foot there is significant intraosseous edema within the proximal half of the 5th metatarsal and there is circumferential edema around 5th metatarsal and a subtle suggestion of possible nondisplaced fracture line in the proximal 3rd of this bone. 2. There are also thin T1 hypointense lines in the proximal aspects of the adjacent 3rd and 4th metatarsals which may additional stress fractures. However, there is no edema in these bones. Correlation with any past or recurrence history of subclinical repetitive micro trauma recommended. It would be very unlikely for the 3rd and 4th metatarsal findings to be acute fractures with no evidence of bone edema. 3. Main Lisfranc joint is intact. 4. Incidentally noted is a tiny skin ulcer on the lateral aspect of the distal 5th toe. However, there is no evidence of osteomyelitis in the subjacent distal phalanx of the 5th toe. DATA REPOSITORY:
[2025-07-29] MEDS: Gadoterate meglumine 20 ML SYRINGE IVP (14:17)
[2025-07-29] MEDS: Normal Saline Flush 10 ML SYR IVP (14:17)
== END ==
LOC: DI 09:00
PROVIDERS: PCP Nurse Practitioner Family; Visit Provider Nurse Practitioner Family
DX: R22.41 Localized swelling, mass and lump, right lower limb (principal); M85.872 Other specified disorders of bone density and structure, left ankle and foot
CPT/HCPCS: 73720

== ENCOUNTER 2025-08-26 00:28 | Outpatient (CLI) | payer BC, SELFPAY ==
[2025-08-26 08:54] LABS: Abs Immature Grans 0.02 10^3/uL (0.0-0.06); HCT 38.0 % (40.0-50.0); HGB 13.0 g/dL (13.5-17.5); Immature Grans % 0.4 %; MCH 34.9 pg (27.0-33.0); MCHC 34.2 % (32.0-36.0); MCV 102 fL (80-95); MPV 11.2 fL (8.0-11.0); Platelet Count 196 10^3/uL (130-400); RBC 3.73 10^6/uL (4.36-5.78); RDW 15.4 % (11.8-14.1); RDW-SD 57.9 fL; WBC 5.03 10^3/uL (4.4-10.8)
[2025-08-26] MEDS: VEDOLIZUMAB 300 MG in Normal Saline 250 ML 500 MG IVPB (09:10)
[2025-08-26] MEDS: Normal Saline Flush 10 ML SYR IVP (09:12)
== END 2025-08-26 00:29 | disposition home or self-care (01) ==
PROVIDERS: Internal Medicine Gastroenterology; PCP Nurse Practitioner Family; Visit Provider Family Medicine
DX: K50.913 Crohn's disease, unspecified, with fistula (principal); K50.912 Crohn's disease, unspecified, with intestinal obstruction
CPT/HCPCS: 36415; 96365; 85025; J3380